=== PATIENT | male | born 1955 | race Caucasian/White ===

== ENCOUNTER 2017-08-08 07:17 | Emergency (ER) | payer SELFPAY ==
[~2017-08-08] VITALS: Ht 177.8 cm; Wt 80.0 kg
[~2017-08-08 07:17] MED LIST: OTC COLD MEDS
[2017-08-08 07:20] VITALS: TEMP 36.7; Ht 177.8 cm; Wt 80.0 kg
[2017-08-08 07:33] VITALS: O2SAT 92
[2017-08-08] MEDS ORDERED: ALBUT/IPRATROP 3MG/0.5MG NEB 3 ML VIAL INH STA (07:44)
[2017-08-08] MEDS ORDERED: DEXT30TA7 PO (07:58)
[2017-08-08 08:09] LABS: BASO % 0.3 %; BASO ABS # 0.02 K/uL (0-0.2); HEMATOCRIT 39.2 % (42-52); HEMOGLOBIN 14.3 g/dL (14.0-18.0); IG# 0.02 K/uL (0.00-0.02); LYMPH % 13.8 %; LYMPH ABS # 0.95 K/uL (1.2-3.4); MEAN CELL VOLUME 85.2 fL (80-100); MEAN CORPUSCULAR HEMOGLOBIN 31.1 pg (25-34); MEAN CORPUSCULAR HGB CONC 36.5 g/dl (32-36); MEAN PLATELET VOLUME 9.3 fL (7.4-10.4); MONO % 16.2 %; MONO ABS # 1.11 K/uL (0.11-0.59); NEUT % 69.4 %; NEUT ABS # 4.77 K/uL (1.4-6.5); PLATELET COUNT 198 K/uL (130-400); RED CELL DISTRIBUTION WIDTH CV 12.7 % (11.5-14.5); RED CELL DISTRIBUTION WIDTH SD 39.4 fL (36.4-46.3); WHITE BLOOD COUNT 6.87 K/uL (4.8-10.8)
[2017-08-08 08:26] LABS: BLOOD UREA NITROGEN 8 mg/dl (7-18); CALCIUM 8.9 mg/dl (8.5-10.1); CARBON DIOXIDE 22 mmol/L (21-32); CREATININE 0.88 mg/dl (0.60-1.40); GLUCOSE 108 mg/dl (70-99); POTASSIUM 3.7 mmol/L (3.5-5.1); SODIUM 123 mmol/L (136-145)
[2017-08-08 08:31] LABS: CKMB 1.7 ng/ml (0.5-3.6)
--- NOTE | 2017-08-08 08:34 | DIAGNOSTIC IMAGING REPORT ---
TWO VIEW CHEST CLINICAL HISTORY: Dyspnea. FINDINGS: PA and lateral chest radiographs are compared to study dated 10/05/2016. The cardiomediastinal silhouette is unremarkable. There is mild atherosclerotic calcification of the thoracic aorta. The lungs and pleural spaces are clear. There is no pneumothorax. The bony thorax appears intact. Degenerative change is noted in the thoracic spine. IMPRESSION: No active disease in the chest. Electronically signed by: Bhavin Magana M.D. 08/08/2017 8:33 AM Dictated Date/Time: 08/08/2017 8:29 AM
[2017-08-08 08:35] LABS: INFLUENZA B ANTIGEN Neg for Influ B (NEG)
--- NOTE | 2017-08-08 09:12 | EMERGENCY ROOM VISIT NOTE ---
History First contact with patient: 07:32 Chief Complaint: FLU LIKE SX Stated Complaint: SICK History of Present Illness Patient is a 62-year-old white male with past medical history significant for COPD, who presents emergency department for evaluation of flulike symptoms 2 weeks. He states he got sick with "a cold" about a week and a half ago, reported some minor upper respiratory symptoms including cough and congestion. His symptoms got better for the beginning part of last week, then worsened again , 4 days ago. He reports subjective fever and chills, generalized body and muscle aches, cough, congestion and progressively worsening shortness of breath. He did not check his temperature with a thermometer. He reports a cough that is productive of clear sputum. He notes some bilateral lower rib pain with coughing and deep breathing. He states that he is short of breath with minimal activity like going up stairs or trying to shower this morning. He has been using Mucinex and Tylenol for his symptoms. He also has been taking 1 puff of his Ventolin inhaler every 4-5 hours. He denies any nausea or vomiting, and reports that he was eating well until just yesterday when he began to note some anorexia. He has not been able to smoke since becoming ill. His is here being evaluated for similar symptoms. He reports that he has been around his grandchildren who have also sick with influenza and strep. The patient did not get an influenza vaccine this year. Review of Systems Review of systems as per HPI. All other systems reviewed were negative. 10 systems reviewed. Past Medical/Surgical History Medical Problems: (1) COPD (chronic obstructive pulmonary disease) (2) Tobacco Use Disorder Surgical Problems: (1) History of hernia repair Electronic medical records are reviewed and summarized as above/below. See Problem List. Social History Smoking Status: Current Every Day Smoker Marital Status: Housing Status: lives with family Occupation Status: employed Current/Historical Medications Scheduled Dextromethorphan-Guaifenesin (Mucinex Dm), 1 TAB PO Q12 Physical Exam Vital Signs Date Time Temp Pulse Resp B/P (MAP) Pulse Ox O2 Delivery O2 Flow Rate FiO2 08/08/17 09:26 95 20 148/88 91 08/08/17 07:34 100 08/08/17 07:33 92 Room Air 08/08/17 07:20 36.7 102 20 138/82 93 Room Air Physical Exam MENTAL STATUS: Patient is an ill although nontoxic-appearing 62-year-old white male who is awake and alert and in no acute distress. He is afebrile, oxygen saturation 93% on room air. HEAD: Atraumatic, without temporal or scalp tenderness. EYES: PERRL, EOMI, no discharge or injection. EARS: Tympanic membranes intact, not inflamed, have normal contour. External canals clear. NOSE: Nares patent, turbinates edematous and boggy with clear rhinorrhea. MOUTH: Mucous membranes moist, no lesions, tongue and gums appear normal. THROAT: No pharyngeal injection, exudates, or tonsillar hypertrophy. Airway is patent. NECK: Supple, nontender, no lymphadenopathy. HEART: Regular rate and rhythm without murmurs, ectopy, gallops, or rubs. LUNGS: Breath sounds are diminished, with expiratory wheezes noted throughout, right worse than left. No accessory muscle use or retractions. SKIN: Normal. NEUROLOGICAL: Sensory and motor functions grossly intact. Normal gait. Medical Decision & Procedures ER Provider Diagnostic Interpretation: TWO VIEW CHEST CLINICAL HISTORY: Dyspnea. FINDINGS: PA and lateral chest radiographs are compared to study dated 10/05/2016. The cardiomediastinal silhouette is unremarkable. There is mild atherosclerotic calcification of the thoracic aorta. The lungs and pleural spaces are clear. There is no pneumothorax. The bony thorax appears intact. Degenerative change is noted in the thoracic spine. IMPRESSION: No active disease in the chest. Laboratory Results 08/08/17 07:50 Red Blood Count 4.60, Mean Corpuscular Volume 85.2, Mean Corpuscular Hemoglobin 31.1, Mean Corpuscular Hemoglobin Concent 36.5, Mean Platelet Volume 9.3, Neutrophils (%) (Auto) 69.4, Lymphocytes (%) (Auto) 13.8, Monocytes (%) (Auto) 16.2, Eosinophils (%) (Auto) 0.0, Basophils (%) (Auto) 0.3, Neutrophils # (Auto ) 4.77, Lymphocytes # (Auto) 0.95, Monocytes # (Auto) 1.11, Eosinophils # (Auto ) 0.00, Basophils # (Auto) 0.02 08/08/17 07:50 Test 08/08/17 07:32 08/08/17 07:50 Influenza Type A Antigen POS for Influ A (NEG) Influenza Type B Antigen Neg for Influ B (NEG) White Blood Count 6.87 K/uL (4.8-10.8) Red Blood Count 4.60 M/uL (4.7-6.1) Hemoglobin 14.3 g/dL (14.0-18.0) Hematocrit 39.2 % (42-52) Mean Corpuscular Volume 85.2 fL (80-100) Mean Corpuscular Hemoglobin 31.1 pg (25-34) Mean Corpuscular Hemoglobin Concent 36.5 g/dl (32-36) Platelet Count 198 K/uL (130-400) Mean Platelet Volume 9.3 fL (7.4-10.4) Neutrophils (%) (Auto) 69.4 % Lymphocytes (%) (Auto) 13.8 % Monocytes (%) (Auto) 16.2 % Eosinophils (%) (Auto) 0.0 % Basophils (%) (Auto) 0.3 % Neutrophils # (Auto) 4.77 K/uL (1.4-6.5) Lymphocytes # (Auto) 0.95 K/uL (1.2-3.4) Monocytes # (Auto) 1.11 K/uL (0.11-0.59) Eosinophils # (Auto) 0.00 K/uL (0-0.5) Basophils # (Auto) 0.02 K/uL (0-0.2) RDW Standard Deviation 39.4 fL (36.4-46.3) RDW Coefficient of Variation 12.7 % (11.5-14.5) Immature Granulocyte % (Auto) 0.3 % Immature Granulocyte # (Auto) 0.02 K/uL (0.00-0.02) Anion Gap 12.0 mmol/L (3-11) Est Creatinine Clear Calc Drug Dose 91.0 ml/min Estimated GFR () 107.5 Estimated GFR (Non- 92.7 BUN/Creatinine Ratio 8.9 (10-20) Calcium Level 8.9 mg/dl (8.5-10.1) Total Creatine Kinase 120 U/L (39-308) Creatine Kinase MB 1.7 ng/ml (0.5-3.6) Creatine Kinase MB Ratio 1.4 (0-3.0) Troponin I < 0.015 ng/ml (0-0.045) Medications Administered Medications (Trade) Dose Ordered Sig/Fred Route Start Time Stop Time Status Last Admin Dose Admin Albuterol/ Ipratropium (Duoneb) 3 ml NOW STAT INH 08/08/17 07:44 08/08/17 07:47 DC 08/08/17 07:56 3 ML ED Course The patient was seen and examined as above. Old records were reviewed. IV lock was initiated and laboratory studies were collected. EKG was performed and was as noted above. Patient was given a DuoNeb treatment. CBC, BMP, cardiac enzymes and influenza swab were collected. Chest x-ray was performed. EKG noted a normal sinus rhythm without ectopy or acute ischemic changes. Laboratory studies did not reveal a leukocytosis, no anemia. The patient does have a history of hyponatremia, his sodium was noted to be 123 today. Renal function is normal. Cardiac enzymes are negative 1, with symptoms greater than 24 hours. Influenza swab was positive for influenza A. Chest x-ray was clear. The patient was reassessed. On re-auscultation, his wheezing had completely cleared. Conservative care measures were discussed regarding the positive influenza swab. Patient reports that he has an albuterol inhaler at home and was advised to continue the inhaler for cough. He is outside of the window for which Tamiflu is appropriate. He was encouraged to follow-up with his primary care provider if his symptoms are not improving. Differential diagnoses also entertained included otitis media, sinusitis, bronchitis, pneumonia, COPD exacerbation, among others. Medical Decision See ED Course. Medication Reconcilliation Current Medication List: was personally reviewed by nd Blood Pressure Screening Patient's blood pressure: Normal blood pressure Blood pressure disposition: Did not require urgent referral Impression Primary Impression: Influenza A Departure Information Referrals Armando Mccloud M.D. (PCP) Patient Instructions My [facility] Additional Instructions Acetaminophen(Tylenol) may be used for fever or pain. Use 1000mg every six hours as needed. Avoid using more than 3000mg in a 24 hour period. (AND/OR) Ibuprofen(Motrin, Advil) may be used for fever or pain. Use 600mg every six hours as needed. Take with food. Avoid using more than 2400mg in a 24 hour period. Do not use 2400mg per day for more than three consecutive days without physician direction. Prolonged inappropriate use can lead to stomach upset or ulcers. Pseudoephedrine(Sudaphed): 30-60mg every 6 hours as needed for nasal congestion. Do not take this with other stimulant products or supplements. Guaifenesin (Mucinex) : Take 1200 mg every 12 hours as needed for nasal/chest congestion, to help thin secretions. Albuterol Inhaler: Take 2-4 puffs every 4 hours for the next 5-7 days, then as needed. Rest and drink plenty of fluids. Controlling your fever with Tylenol and Ibuprofen as above will make you feel better. Wash your hands after nose blowing, sneezing, or coughing. Most germs are spread through contact, therefore improper hygiene may result in your close contacts and loved ones becoming ill just like you. Continue current medications. Return to the ER for severe headache, neck stiffness, chest pain, difficulty breathing, fevers, vomiting, worsening of your condition, or as needed. Follow up with your primary physician this week for a recheck of your current condition.
[2017-08-08 09:26] VITALS: BP 148/88; PULSE 95; O2SAT 91
== END 2017-08-08 09:27 | disposition home or self-care (01) ==
LOC: C.EDB 07:17
DX: J10.1 Influenza due to other identified influenza virus with other respiratory manifestations (principal); J44.9 Chronic obstructive pulmonary disease, unspecified; F17.200 Nicotine dependence, unspecified, uncomplicated; Z98.890 Other specified postprocedural states

== ENCOUNTER 2022-04-19 12:42 | Observation (INO) ==
--- NOTE | 2022-04-19 13:02 | Emergency Department Note ---
Impression & Plan TIA (transient ischemic attack), Carotid stenosis, symptomatic w/o infarct, Cerebral aneurysm without rupture ED Provider Note Name: ADALBERTO GRAJEDA Age: 66 Sex: M Arrives Via: Walk-In Informant: Patient ED Provider: Warren Meadows MD Chief Complaint: Visual disturbance Impression: As per impressions above Medical Decision Making: Pleasant 66-year-old gentleman with a history of hyperlipidemia. He also has a history of smoking. Arrives with several hours now resolved left visual field deficits. He had already been seen by ophthalmology this morning and sent him to the ER for evaluation of possible stroke. Work-up including a CTA of the head and neck reveal no intracranial hemorrhage though there is evidence of significant left carotid stenosis. Neuro intact throughout with NIH 0. A bit HTN but not requiring IV meds. Given ASA 324mg PO. Hospitalist consulted for further management givenly likely TIA as cause of symptoms. Triage/Nursing Notes reviewed by Me Differentials:Stroke, ICH, TIA, Optho emergency, electrolyte imbalance, seizure, brain tumor, amongst others. Vital Signs: reviewed and remarkable for HTN Interventions: asa 324mg po Labs:Reviewed and remarkable for no significant abnormalities Imaging:ct angio head/neck w/wo contrast. Left carotid stenosis and aneurysm noted per hospitalist EKG:Per My Interpretation: Indication stroke like symptoms: NSR 83 bpm, qtc 430. No Ectopy. No Ischemia. Compared to EKG 08/08/17, no significant changes. Consults:Dr Andres BENITEZ Hospitalist Plan: Disposition:Hospitalization. Condition: Good History of Present Illness:66-year-old male arrives for evaluation of visual disturbance. Patient notes he woke this morning feeling fine. Around 8 PM he started having some visual loss in his left eye/left lateral field. Says he just could not seem to make things out properly and they were hazy. He called his ophthalmology technician and was immediately seen. He notes the symptoms come and go lasting 10 to 15 minutes at a time. They have now resolved. He was seen by ophthalmology and they dilated his eye. They noted no concerning findings though are concerned that he had had a stroke based on his symptoms. He denies any headache, neck pain, palpitations, nausea, vomiting, arm or leg weakness, paresthesias, urinary or bowel control issues, abdominal pain, chest pain or any other signs or symptoms. He is been feeling fine the last few days. No med ications prior to arrival. Patient has a history of hyperlipidemia takes no medicines. He does smoke daily. Father of a heart attack mother of old age. ROS: See above HPI for pertinent positives & negatives. A total of 10 systems reviewed and were otherwise negative. Past Medical History:Hyperlipidemia Past Surgical History:Hernia repair Family History:Mother of ND, mother of old age Social History:, long-term tobacco use cigarettes, no drug or alcohol use. Home Medications:None periodic vitamins Allergies:KNDA Vitals:Blood Pressure: 174/100, Pulse 86, RR 18, T 37.1C, O2 96% on RA Physical Exam: GENERAL: Patient is mildly anxious appearing and in minimal distress. EYES: No scleral icterus, unremarkable pupils. ENT: Mucous membranes moist, no nasal congestion. NECK: No masses appreciated, nomeningismus, trachea is midline. RESPIRATORY: No dyspnea. Clear to auscultation and equal bilaterally. No wheeze, no rhonchi. CARDIOVASCULAR: Regular rate and rhythm.No murmurs, rubs, gallops appreciated. GASTROINTESTINAL: Abdomen soft, non-tender, no peritonitis.Bowel sounds positive.No masses appreciated. BACK: No midline tenderness, no CVA tenderness EXTREMITIES: Normal motion all extremities, no cyanosis, no edema. NEUROLOGIC: Alert and oriented, no acute motor or sensory deficits, no focal weakness, cranial nerves grossly intact. Dilated left eye. SKIN: No rash, no jaundice, no diaphoresis. PSYCH: Appropriate GCS: 15 ED Course: Times/Reassessments: Stable throughout. Agreeable to hospitalization Warren Meadows MD Past Med/Surg History Medical History H/O blood clots H/O myocardial infarction, greater than 8 weeks Surgical History H/O hernia repair S/P tonsillectomy Family History Mother Ovarian cancer Denies family history of Colon cancer Prostate cancer Myocardial infarction Breast cancer Social History Smoking Status: Unknown if ever smoked Tobacco Type: Cigarettes Age Started Using Tobacco: 17; Cigarettes Per Day: Less then a pack; Second Hand Exposure: No; Hx Alcohol Use: No Hx Substance Use: No Preferred Language: Latvian Communication Ability: Effective Visual Impairment: No Limitations Hearing Ability: Normal Regional Administrative Assistant Required: No Beliefs That Will Affect Care: None marital status: Current Living Situation: Spouse current occupational status: employed 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 How many Children do You have: 4 Feels Safe at Home: Yes Childhood Exposure to Second-Hand Smoke: Yes caffeine: Yes Dental Care, Regularly: No Physical Activity Frequency: 3-4 Times per Week Seatbelt Use: always Sunscreen Use: No Allergies Allergies Allergy/AdvReac Type Severity Reaction Status Date / Time No Known Allergies Allergy Verified 04/19/22 13:27 Home Meds Home Medications Medication Instructions Recorded Confirmed albuterol sulfate 90 mcg/actuation 2 puffs inhalation Q6H PRN 03/31/19 04/19/22 aerosol inhaler (Ventolin HFA) Shortness Of Breath ascorbic acid (vitamin C) 250 mg 250 mg PO DAILY 01/20/22 04/19/22 tablet aspirin 81 mg tablet,delayed 81 mg PO DAILY 01/20/22 04/19/22 release cholecalciferol (vitamin D3) 25 25 mcg PO DAILY 01/20/22 04/19/22 mcg (1,000 unit) capsule coenzyme Q10 60 mg tablet 60 mg PO DAILY 01/20/22 04/19/22 fexofenadine 180 mg tablet 180 mg PO DAILY 01/20/22 04/19/22 (Jillian Allergy) lansoprazole 15 mg capsule,delayed 15 mg PO DAILY PRN GERD 01/20/22 04/19/22 release Previous Rx's Medication Instructions Recorded sildenafil 25 mg tablet 25 mg PO DAILY PRN sexual activity 01/20/22 #20 tabs simvastatin 10 mg tablet 10 mg PO DAILY #90 tabs 01/20/22 fluticasone furoate 100 1 inh inhalation DAILY #60 ea 04/05/22 mcg-vilanterol 25 mcg/dose inhalation powder (Breo Ellipta) atorvastatin 40 mg tablet 40 mg PO DAILY 30 days #30 tabs 04/20/22 clopidogrel 75 mg tablet (Plavix) 75 mg PO DAILY #30 tabs 04/20/22 Results & Data (ED) Vital Signs Vital Signs - 24 hr 04/19/22 12:46 Temperature 37.1 C Temperature Source Oral Pulse Rate 86 Respiratory Rate 18 Blood Pressure 174/100 H Blood Pressure Mean 124 Pulse Oximetry 96 Oxygen Delivery Method Room Air Sepsis Recent Fever Within 48 Hours No Sepsis New/Unexplained Change in Mental Status No Sepsis Action Taken by Nursing No Action Required Laboratory Data Result diagrams: 04/20/22 09:36 04/20/22 09:36 Lab Results 04/19/22 04/19/22 04/19/22 Range/Units 12:57 12:57 12:57 WBC 9.55 (4.8-10.8) K/ul RBC 5.21 (4.63-6.08) M/uL Hgb 15.5 (14.0-18.0) g/dl POC Hgb (14.0-18.0) g/dl Hct 45.4 (40.1-51.0) % POC Hct (42-52) % MCV 87.1 (80.0-100.0) fL MCH 29.8 (25.0-34.0) pg MCHC 34.1 (32.0-36.0) g/dL RDW Std Deviation 42.2 (36.4-46.3) fL RDW Coeff of Beverly 13.2 (11.5-14.5) % Plt Count 255 (130-400) K/uL MPV 10.3 (9.4-12.4) fL Immature Gran % (Auto) 0.4 % Neut % (Auto) 59.8 % Lymph % (Auto) 29.8 % Dale % (Auto) 7.4 % Eos % (Auto) 1.9 % Baso % (Auto) 0.7 % Neut # (Auto) 5.70 (1.4-6.5) K/uL Lymph # (Auto) 2.85 (1.2-3.4) K/uL Dale # (Auto) 0.71 (0.24-0.82) K/uL Eos # (Auto) 0.18 (0-0.50) K/uL Baso # (Auto) 0.07 (0-0.2) K/uL Immature Gran # (Auto) 0.04 H (0.00-0.02) K/uL PT 10.6 (9.0-12.0) Seconds INR 1.0 (0.9-1.1) APTT 34.3 H (21.0-31.0) Seconds PTT Ratio 1.2 POC Sodium (135-144) mmol/L Sodium 132 L (136-145) mmol/L POC Potassium (3.3-5.0) mmol/L Potassium 4.1 (3.5-5.1) mmol/L POC Chloride (101-112) mmol/L Chloride 97 L (98-107) mmol/L Carbon Dioxide 27 (21-32) mmol/L POC Total CO2 (24-31) mmol/L Anion Gap 8 (3-11) POC Anion Gap (16-25) mmol/L POC BUN (7-18) mg/dl BUN 12 (6-23) mg/dl Creatinine 0.87 (0.6-1.4) mg/dl POC Creatinine (0.6-1.3) mg/dl Est Cr Clr Drug Dosing 84.7 ml/min Est GFR ( Amer) 105.0 ml/min Est GFR (Non-Af Amer) 90.6 ml/min BUN/Creatinine Ratio 13.8 (10-20) Glucose 91 (70-99(Fasting)) mg/dl POC Glucose (other) (70-99) mg/dl Calcium 10.5 H (8.5-10.1) mg/dl POC Ioniz Calcium Claudette (1.12-1.32) mmol/l Magnesium 2.0 (1.7-2.4) mg/dl Total Bilirubin 0.4 (0.2-1.0) mg/dl AST 17 (13-39) U/L ALT 15 (7-52) U/L Alkaline Phosphatase 78 (34-104) U/L Troponin I High Sens 6.8 (0-20) pg/ml Total Protein 8.6 H (6.0-8.3) gm/dl Albumin 5.1 H (3.4-5.0) gm/dl Globulin 3.5 (2.5-4.0) gm/dl Albumin/Globulin Ratio 1.5 (0.9-2) SARS-CoV-2, RNA, NAAT (NEGATIVE) Blood Type Antibody Screen 04/19/22 04/19/22 04/19/22 Range/Units 12:59 13:04 13:05 WBC (4.8-10.8) K/ul RBC (4.63-6.08) M/uL Hgb (14.0-18.0) g/dl POC Hgb 16.3 (14.0-18.0) g/dl Hct (40.1-51.0) % POC Hct 48 (42-52) % MCV (80.0-100.0) fL MCH (25.0-34.0) pg MCHC (32.0-36.0) g/dL RDW Std Deviation (36.4-46.3) fL RDW Coeff of Beverly (11.5-14.5) % Plt Count (130-400) K/uL MPV (9.4-12.4) fL Immature Gran % (Auto) % Neut % (Auto) % Lymph % (Auto) % Dale % (Auto) % Eos % (Auto) % Baso % (Auto) % Neut # (Auto) (1.4-6.5) K/uL Lymph # (Auto) (1.2-3.4) K/uL Dale # (Auto) (0.24-0.82) K/uL Eos # (Auto) (0-0.50) K/uL Baso # (Auto) (0-0.2) K/uL Immature Gran # (Auto) (0.00-0.02) K/uL PT (9.0-12.0) Seconds INR (0.9-1.1) APTT (21.0-31.0) Seconds PTT Ratio POC Sodium 132 L (135-144) mmol/L Sodium (136-145) mmol/L POC Potassium 4.1 (3.3-5.0) mmol/L Potassium (3.5-5.1) mmol/L POC Chloride 97 L (101-112) mmol/L Chloride (98-107) mmol/L Carbon Dioxide (21-32) mmol/L POC Total CO2 25 (24-31) mmol/L Anion Gap (3-11) POC Anion Gap 16.0 (16-25) mmol/L POC BUN 12 (7-18) mg/dl BUN (6-23) mg/dl Creatinine (0.6-1.4) mg/dl POC Creatinine 0.8 (0.6-1.3) mg/dl Est Cr Clr Drug Dosing ml/min Est GFR ( Amer) ml/min Est GFR (Non-Af Amer) ml/min BUN/Creatinine Ratio (10-20) Glucose (70-99(Fasting)) mg/dl POC Glucose (other) 96 (70-99) mg/dl Calcium (8.5-10.1) mg/dl POC Ioniz Calcium Claudette 1.24 (1.12-1.32) mmol/l Magnesium (1.7-2.4) mg/dl Total Bilirubin (0.2-1.0) mg/dl AST (13-39) U/L ALT (7-52) U/L Alkaline Phosphatase (34-104) U/L Troponin I High Sens (0-20) pg/ml Total Protein (6.0-8.3) gm/dl Albumin (3.4-5.0) gm/dl Globulin (2.5-4.0) gm/dl Albumin/Globulin Ratio (0.9-2) SARS-CoV-2, RNA, NAAT NEGATIVE (NEGATIVE) Blood Type O Positive Antibody Screen NEGATIVE Administered Medications Discontinued Medications Ascorbic Acid (Ascorbic Acid 500 Mg Tab) 250 mg PO DAILY [facility] Stop: 05/20/22 08:59 Last Admin: 04/20/22 07:58 Dose: 250 mg Documented By: MALACHI Aspirin (Aspirin 81 Mg Chew) 324 mg PO NOW [facility] Stop: 04/19/22 14:00 Last Admin: 04/19/22 14:24 Dose: 324 mg Documented By: RUI Aspirin (Aspirin 81 Mg Ectab) 81 mg PO DAILY [facility] Stop: 05/20/22 08:59 Last Admin: 04/20/22 08:02 Dose: 81 mg Documented By: MALACHI Atorvastatin Calcium (Atorvastatin 20 Mg Tab) 20 mg PO [facility] Stop: 05/20/22 08:59 Last Admin: 04/20/22 08:03 Dose: 20 mg Documented By: MALACHI Clopidogrel Bisulfate (Clopidogrel Bisulfate 75 Mg Tab) 75 mg PO [facility] Stop: 05/20/22 09:29 Last Admin: 04/20/22 10:30 Dose: 75 mg Documented By: MALACHI Enoxaparin Sodium (Enoxaparin Inj 40 Mg/0.4 Ml Syr) 40 mg SQ Q24H [facility] Stop: 05/19/22 20:59 Last Admin: 04/19/22 21:40 Dose: 40 mg Documented By: JUDY Fexofenadine HCl (Fexofenadine Hcl 180 Mg Tab) 180 mg PO DAILY [facility] Stop: 05/20/22 08:59 Last Admin: 04/20/22 07:58 Dose: 180 mg Documented By: MALACHI Fluticasone/Vilanterol (Fluticasone/Vilanterol 100/25mcg 14 Puffs/Inhaler) 1 puffs INH DAILY [facility] Stop: 05/20/22 08:59 Last Admin: 04/20/22 08:12 Dose: Not Given Documented By: MALACHI Sodium Chloride (Nss 1000ml) 1,000 mls @ 125 mls/hr IV .Q8H [facility] Stop: 05/19/22 12:59 Last Admin: 04/20/22 09:53 Dose: 125 mls/hr Documented By: Infusion: 04/20/22 09:53 Dose: 125 mls/hr Documented By: Admin: 04/20/22 02:28 Dose: 125 mls/hr Documented By: Infusion: 04/19/22 21:29 Dose: 125 mls/hr Documented By: Admin: 04/19/22 13:29 Dose: 125 mls/hr Documented By: ROBIN Ioversol (Optiray 320 500ml) 101 ml IV ONCE ONE Stop: 04/19/22 13:26 Last Admin: 04/19/22 13:26 Dose: 101 ml Documented By: EMELIA Miscellaneous (Remove Nicoderm Patch) 1 each N/A DAILY@0859 [facility] Stop: 05/20/22 08:58 Last Admin: 04/20/22 08:10 Dose: 1 each Documented By: MALACHI Nicotine (Nicotine 14 Mg/24 Hr Patch) 14 mg TD QAM [facility] Stop: 05/19/22 22:04 Last Admin: 04/20/22 08:11 Dose: 14 mg Documented By: Admin: 04/19/22 23:38 Dose: 14 mg Documented By: JUDY Vitamin D (Cholecalciferol 1,000 Units 25 Mcg Tab) 1,000 units PO DAILY [facility] Stop: 05/20/22 08:59 Last Admin: 04/20/22 08:03 Dose: 1,000 units Documented By: MALACHI Discharge Plan Visit Data Chief Complaint: TIA Symptoms Stated Complaint: lost sight in L eye, Dr ref for stroke test ED Provider: Warren Meadows Discharge Problem: TIA (transient ischemic attack), Carotid stenosis, symptomatic w/o infarct, Cerebral aneurysm without rupture Patient Disposition: Admitted As Inpatient Discharge Instructions Interventions: ED Discharge Assessment Last Done: 04/19/22 15:50
[2022-04-19 13:17] LABS: iSTAT Creatinine 0.8 mg/dl (0.6-1.3); iSTAT Hemoglobin 16.3 g/dl (14.0-18.0); iSTAT Ionized Calcium 1.24 mmol/l (1.12-1.32); iSTAT Potassium 4.1 mmol/L (3.3-5.0)
[2022-04-19] MEDS ORDERED: OPTIRAY 320 500ml IV ONE (13:25)
[2022-04-19] MEDS: SODIUM CHLORIDE 0.9% 1000ML 1,000 ML IV SCH (13:29)
[2022-04-19 13:35] LABS: Basophils # (auto) 0.07 K/uL (0-0.2); Basophils % (auto) 0.7 %; Eosinophils # (auto) 0.18 K/uL (0-0.50); Eosinophils % (auto) 1.9 %; Hematocrit (blood only) 45.4 % (40.1-51.0); Hemoglobin 15.5 g/dl (14.0-18.0); Immature Granulocytes # (auto) 0.04 K/uL (0.00-0.02); Immature Granulocytes % (auto) 0.4 %; Lymphocytes # (auto) 2.85 K/uL (1.2-3.4); Lymphocytes % (auto) 29.8 %; Mean Corpuscular Hemoglobin 29.8 pg (25.0-34.0); Mean Corpuscular Hgb Conc 34.1 g/dL (32.0-36.0); Mean Corpuscular Volume 87.1 fL (80.0-100.0); Mean Platelet Volume 10.3 fL (9.4-12.4); Monocytes # (auto) 0.71 K/uL (0.24-0.82); Monocytes % (auto) 7.4 %; Neutrophils % (auto) 59.8 %; Platelet Count 255 K/uL (130-400); RDW Coefficient of Variation 13.2 % (11.5-14.5); RDW Standard Deviation 42.2 fL (36.4-46.3); Red Blood Count 5.21 M/uL (4.63-6.08); White Blood Count 9.55 K/ul (4.8-10.8)
[2022-04-19 13:52] LABS: Partial Thromboplastin Ratio 1.2; Partial Thromboplastin Time 34.3 Seconds (21.0-31.0); Prothrombin Time 10.6 Seconds (9.0-12.0)
--- NOTE | 2022-04-19 13:54 | CT Scan Report ---
CT angio neck with con, CT angio head w con, CT head/brain wo con CLINICAL HISTORY: Stroke Like Symptoms TECHNIQUE: Contiguous axial CT images of the head were acquired from the base of the skull to the yamile johnie without intravenous contrast administration. CT angiography of the head and neck was performed f ollowing intravenous administration of iodinated contrast. Coronal and sagittal MIPS were obtained fr om the axial data set and were submitted for review. Automated dose lowering techniques and/or adjus tment according to patient size were utilized for this examination. All measurements were calculated based on NASCET criteria. CT DOSE: 1247.04 mGy.cm Comparison: None available at the time of this dictation. FINDINGS: CT head: There is no acute intracranial hemorrhage or evidence of acute territorial infarction. No sh ift of the midline structures, mass effect, or extra-axial abnormalities are shown. Emphysematous changes are seen in the lungs. There is a 12 mm subclavian lymph node. CTA Neck: The left common carotid artery shares common origin with the innominate artery. There is h emodynamically significant stenosis of the left internal carotid artery distal to the bifurcation. Th ere is atherosclerosis in the right internal carotid artery without hemodynamically significant steno sis. There is no significant atherosclerotic plaque in the aortic arch or the origins of the innomina te, left common carotid, and left subclavian arteries. The common carotid, external carotid, cervic al segments of the internal carotid arteries, and the cervical segments of the vertebral arteries are patent without hemodynamically significant stenosis. The left vertebral artery is dominant. CTA Head: The anterior and posterior cerebral circulations are patent. There is a 6 x 8 mm anterosup eriorly oriented aneurysm at the junction of the right anterior cerebral artery and the anterior comm unicating artery. Great vessels are patent. There is likely severe stenosis of the right vertebral ar [place] V4 segment, although the distal vertebral artery is reconstituted. IMPRESSION: 1. No acute intracranial hemorrhage, evidence of acute territorial infarction, or other acute intrac ranial disease process. 2. There is hemodynamically significant stenosis of the left internal carotid artery. Prominent athe rosclerosis in the right internal carotid artery without hemodynamically significant stenosis. These are likely chronic. 3. There is hemodynamically significant stenosis in the right vertebral artery V4 segment. This is f avored to be chronic. 4. 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 Assessment of stenosis of the internal carotid arteries is based on NASCET criteria. ACT 112: Positive. There are findings on this exam that require communication between the performing entity and the patient following Patient Test Result Information Act ([place] Act 112) guidelines. Electronically signed by: Anand Trevizo M.D. 04/19/2022 1:53 PM
[2022-04-19] MEDS ORDERED: ASPIRIN 81 MG CHEW PO STA (13:59)
[2022-04-19 14:01] LABS: Albumin Globulin Ratio 1.5 (0.9-2); Albumin Level 5.1 gm/dl (3.4-5.0); BUN Creatinine Ratio 13.8 (10-20); Bilirubin,Total 0.4 mg/dl (0.2-1.0); Calcium 10.5 mg/dl (8.5-10.1); Creatinine Clr Calc Pharmacy 84.7 ml/min; Est GFR (Non-African American) 90.6 ml/min; Globulin 3.5 gm/dl (2.5-4.0); Potassium 4.1 mmol/L (3.5-5.1); Total Protein 8.6 gm/dl (6.0-8.3)
[2022-04-19 14:02] LABS: Troponin I High Sensitivity 6.8 pg/ml (0-20)
--- NOTE | 2022-04-19 14:22 | History & Physical Report ---
Date of Service April 19, 2022 Assessment & Plan (1) TIA (transient ischemic attack): Plan: -Admit to med/tele -Patient is currently afebrile, hemodynamically stable, and stable on RA -Patient's symptoms are likely associated with his left ICA stenosis but cannot rule out other vascular causes at this time. 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 artery -Patient's vision nearly back to baseline, will need to continue to monitor after his left eye is no longer dilated -Was given 324 mg of aspirin in the ED, will continue his daily aspirin and will start 20 mg PO Lipitor to see if he can tolerate a different statin -Placed Vascular surgery consult for multiple findings on the CTA of the head/neck -Will obtain MRI of the brain and TTE for further assessment, ECG showing NSR and was noted to be NSR on exam -Encourage smoking cessation as it increases his risk of stroke -q4h neuro checks -AM CBC and BMP (2) GERD (gastroesophageal reflux disease): Plan: -Continue lansoprazole (3) Smoker: Plan: -Continue to stress smoking cessation -He declined nictoine patch/gum at this time (4) COPD (chronic obstructive pulmonary disease): Plan: -Continue breathing treatments (5) Dyslipidemia: Plan: -Starting Lipitor Plan The patient was discussed with Dr. Campos at the time of the admission History of Present Illness Chief Complaint: Loss of vision Primary Care Provider: Pawel Greene DO Darrion is a 66 year old male with a PMH significant for COPD, GERD, tobacco abuse, hypertriglyceridemia, who presented to the [facility] ED on 04/19/22 with a chief complaint of loss of vision in the left eye. In the ED the patient was found to be afebrile, hemodynamically stable, and stable on RA. Labs were remarkable for CBC WNL, sodium of 132, stable renal function, and covid negative. CT of the Head and CT of the Head/Neck showed "No acute intracranial hemorrhage, evidence of acute territorial infarction, or other acute intracranial disease process. There is hemodynamically significant stenosis of the left internal carotid artery. Prominent atherosclerosis in the right internal carotid artery without hemodynamically significant stenosis. These are likely chronic.There is hemodynamically significant stenosis in the right vertebral artery V4 segment. This is favored to be chronic.There is a 6 x 8 mm aneurysm in the junction of the right anterior cerebral artery and anterior communicating artery. Prior to admission the patient was given 324 mg of aspirin. At the time of the exam the patient was sitting up in bed, resting comfortably, with his sitting bedside. He states that he was in his normal state of health this morning when he woke up around 0600. He went through his normal morning routine until approximately 0800 when he noticed blurry vision in his left eye. The loss of vision was gradual and he denies complete loss of vision or experiencing a curtain come down. He states that this lasted for approximately 20 minutes then his vision improved. However, the blurry vision returned shortly after. He was seen in the ophthalmology office around 1100 this morning, they dilated his left pupil and said his eye exam was normal, they recommended coming to the ED for stroke evaluation. He states that at the time of my exam his vision is virtually back to normal in his left eye but is slightly blurry; his left pupil is still dilated at the time of my exam. He denies headaches, changes in hearing, taste, and smell. He has no other neurologic symptoms at the time of my exam. When asked, he states that this happened one other time, approximately 1 year ago but lasted a short period of time and them resolved, he never went to be evaluated at that time. He is on daily aspirin and still smokes.He states that his PCP recently started him on simvastatin for elevated LDL, he was unable to tolerate it because he states it made him constipated. He has a follow-up appointment with them within the next 2 weeks. He denies a history of afib or feeling as though his heart is fluttering. I spoke to him regarding code status, he is a Full Code, his would make decisions for him if he could not make decisions himself. Allergies Allergy/AdvReac Type Severity Reaction Status Date / Time No Known Allergies Allergy Verified 04/19/22 13:27 Home Medications Medication Instructions Recorded Confirmed Type albuterol sulfate 90 mcg/actuation 2 puffs inhalation Q6H PRN 03/31/19 04/19/22 History aerosol inhaler (Ventolin HFA) Shortness Of Breath ascorbic acid (vitamin C) 250 mg 250 mg PO DAILY 01/20/22 04/19/22 History tablet aspirin 81 mg tablet,delayed 81 mg PO DAILY 01/20/22 04/19/22 History release cholecalciferol (vitamin D3) 25 25 mcg PO DAILY 01/20/22 04/19/22 History mcg (1,000 unit) capsule coenzyme Q10 60 mg tablet 60 mg PO DAILY 01/20/22 04/19/22 History fexofenadine 180 mg tablet 180 mg PO DAILY 01/20/22 04/19/22 History (Jillian Allergy) lansoprazole 15 mg capsule,delayed 15 mg PO DAILY PRN GERD 01/20/22 04/19/22 History release sildenafil 25 mg tablet 25 mg PO DAILY PRN sexual activity 01/20/22 04/19/22 Rx #20 tabs simvastatin 10 mg tablet 10 mg PO DAILY #90 tabs 01/20/22 04/19/22 Rx fluticasone furoate 100 1 inh inhalation DAILY #60 ea 04/05/22 04/19/22 Rx mcg-vilanterol 25 mcg/dose inhalation powder (Breo Ellipta) Past Med/Surg History Medical History (Updated 04/19/22 @ 15:06 by Kurt Walter PA-C) H/O blood clots H/O myocardial infarction, greater than 8 weeks Surgical History H/O hernia repair S/P tonsillectomy Family History Mother Ovarian cancer Denies family history of Colon cancer Prostate cancer Myocardial infarction Breast cancer Social History (Updated 01/20/22 @ 13:32 by Kellee Valerio LPN) Smoking Status: Current every day smoker Tobacco Type: Cigarettes Age Started Using Tobacco: 17; Cigarettes Per Day: Less then a pack; Second Hand Exposure: No; Hx Alcohol Use: Yes Hx Substance Use: No Preferred Language: Micronesian Communication Ability: Effective Visual Impairment: No Limitations Hearing Ability: Normal Heat Plant Specialist Required: No marital status: Current Living Situation: Spouse current occupational status: employed 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 All systems have been reviewed and are otherwise negative. Physical Exam Physical Exam: Physical Exam: General: In no acute distress, stated age, well-nourished, good hygiene HEENT: Normocephalic, atraumatic, no scleral icterus, pupils around round, left pupil currently dilated from eye exam prior to arrival to the ED, both pupils are reactive to light, moist mucus membranes, trachea midline, no thyromegaly Chest/Pulm: No respiratory distress, symmetrical chest expansion, expiratory wheezing noted throughout Cardiac: RRR, no murmurs noted Abdomen: Negative for ascites and bruising, normoactive bowel sounds, soft, non-tender to palpation throughout Musculoskeletal: Symmetrical and without signs of acute trauma, upper and lower extremities with full ROM, no atrophy, spasticity, or flaccidity Extremities: Radial, dorsalis pedis, and posterior tibial pulses are intact and symmetrical, no edema noted in the BL LE's Skin: Warm, dry, no rashes , lesions, or scars noted Neuro: Alert and oriented to person, place, month, year, and president, no focal defects, CN II-XII tested and intact, finger to nose test negative, no tremors noted Psych: No acute distress, calm and cooperative during the exam Results & Data Results & Data ([facility]) Vital Signs (Past 12 Hours) Vital Signs Temp Pulse Resp BP Pulse Ox O2 Del Method 04/19/22 12:46 37.1 C 86 18 174/100 H 96 Room Air Laboratory Results Abnormal lab results 04/19/22 04/19/22 04/19/22 Range/Units 12:57 12:57 12:57 Immature Gran # (Auto) 0.04 H (0.00-0.02) K/uL APTT 34.3 H (21.0-31.0) Seconds POC Sodium (135-144) mmol/L Sodium 132 L (136-145) mmol/L POC Chloride (101-112) mmol/L Chloride 97 L (98-107) mmol/L Calcium 10.5 H (8.5-10.1) mg/dl Total Protein 8.6 H (6.0-8.3) gm/dl Albumin 5.1 H (3.4-5.0) gm/dl 04/19/22 Range/Units 13:04 Immature Gran # (Auto) (0.00-0.02) K/uL APTT (21.0-31.0) Seconds POC Sodium 132 L (135-144) mmol/L Sodium (136-145) mmol/L POC Chloride 97 L (101-112) mmol/L Chloride (98-107) mmol/L Calcium (8.5-10.1) mg/dl Total Protein (6.0-8.3) gm/dl Albumin (3.4-5.0) gm/dl Diagnostic Findings Head CT 04/19/22 12:58 CT angio neck with con, CT angio head w con, CT head/brain wo con CLINICAL HISTORY: Stroke Like Symptoms TECHNIQUE: Contiguous axial CT images of the head were acquired from the base of the skull to the vertex without intravenous contrast administration. CT angiography of the head and neck was performed following intravenous administration of iodinated contrast. Coronal and sagittal MIPS were obtained from the axial data set and were submitted for review. Automated dose lowering techniques and/or adjustment according to patient size were utilized for this examination. All measurements were calculated based on NASCET criteria. CT DOSE: 1247.04 mGy.cm Comparison: None available at the time of this dictation. FINDINGS: CT head: There is no acute intracranial hemorrhage or evidence of acute territorial infarction. No shift of the midline structures, mass effect, or extra-axial abnormalities are shown. Emphysematous changes are seen in the lungs. There is a 12 mm subclavian lymph node. CTA Neck: The left common carotid artery shares common origin with the innominate artery. There is hemodynamically significant stenosis of the left internal carotid artery distal to the bifurcation. There is atherosclerosis in the right internal carotid artery without hemodynamically significant stenosis. There is no significant atherosclerotic plaque in the aortic arch or the origins of the innominate, left common carotid, and left subclavian arteries. The common carotid, external carotid, cervical segments of the internal carotid arteries, and the cervical segments of the vertebral arteries are patent without hemodynamically significant stenosis. The left vertebral artery is dominant. CTA Head: The anterior and posterior cerebral circulations are patent. There is a 6 x 8 mm anterosuperiorly oriented aneurysm at the junction of the right anterior cerebral artery and the anterior communicating artery. Great vessels are patent. There is likely severe stenosis of the right vertebral artery V4 segment, although the distal vertebral artery is reconstituted. IMPRESSION: 1. No acute intracranial hemorrhage, evidence of acute territorial infarction, or other acute intracranial disease process. 2. There is hemodynamically significant stenosis of the left internal carotid artery. Prominent atherosclerosis in the right internal carotid artery without hemodynamically significant stenosis. These are likely chronic. 3. There is hemodynamically significant stenosis in the right vertebral artery V4 segment. This is favored to be chronic. 4. 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 Assessment of stenosis of the internal carotid arteries is based on NASCET criteria. ACT 112: Positive. There are findings on this exam that require communication between the performing entity and the patient following Patient Test Result Information Act ([place] Act 112) guidelines. Electronically signed by: Anand Trevizo M.D. 04/19/2022 1:53 PM Head CTA 04/19/22 12:58 CT angio neck with con, CT angio head w con, CT head/brain wo con CLINICAL HISTORY: Stroke Like Symptoms TECHNIQUE: Contiguous axial CT images of the head were acquired from the base of the skull to the vertex without intravenous contrast administration. CT angiography of the head and neck was performed following intravenous administration of iodinated contrast. Coronal and sagittal MIPS were obtained from the axial data set and were submitted for review. Automated dose lowering techniques and/or adjustment according to patient size were utilized for this examination. All measurements were calculated based on NASCET criteria. CT DOSE: 1247.04 mGy.cm Comparison: None available at the time of this dictation. FINDINGS: CT head: There is no acute intracranial hemorrhage or evidence of acute territorial infarction. No shift of the midline structures, mass effect, or extra-axial abnormalities are shown. Emphysematous changes are seen in the lungs. There is a 12 mm subclavian lymph node. CTA Neck: The left common carotid artery shares common origin with the innominate artery. There is hemodynamically significant stenosis of the left internal carotid artery distal to the bifurcation. There is atherosclerosis in the right internal carotid artery without hemodynamically significant stenosis. There is no significant atherosclerotic plaque in the aortic arch or the origins of the innominate, left common carotid, and left subclavian arteries. The common carotid, external carotid, cervical segments of the internal carotid arteries, and the cervical segments of the vertebral arteries are patent without hemodynamically significant stenosis. The left vertebral artery is dominant. CTA Head: The anterior and posterior cerebral circulations are patent. There is a 6 x 8 mm anterosuperiorly oriented aneurysm at the junction of the right anterior cerebral artery and the anterior communicating artery. Great vessels are patent. There is likely severe stenosis of the right vertebral artery V4 segment, although the distal vertebral artery is reconstituted. IMPRESSION: 1. No acute intracranial hemorrhage, evidence of acute territorial infarction, or other acute intracranial disease process. 2. There is hemodynamically significant stenosis of the left internal carotid artery. Prominent atherosclerosis in the right internal carotid artery without hemodynamically significant stenosis. These are likely chronic. 3. There is hemodynamically significant stenosis in the right vertebral artery V4 segment. This is favored to be chronic. 4. 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 Assessment of stenosis of the internal carotid arteries is based on NASCET criteria. ACT 112: Positive. There are findings on this exam that require communication between the performing entity and the patient following Patient Test Result Information Act ([place] Act 112) guidelines. Electronically signed by: Anand Trevizo M.D. 04/19/2022 1:53 PM Neck CTA 04/19/22 12:58 CT angio neck with con, CT angio head w con, CT head/brain wo con CLINICAL HISTORY: Stroke Like Symptoms TECHNIQUE: Contiguous axial CT images of the head were acquired from the base of the skull to the vertex without intravenous contrast administration. CT angiography of the head and neck was performed following intravenous administration of iodinated contrast. Coronal and sagittal MIPS were obtained from the axial data set and were submitted for review. Automated dose lowering techniques and/or adjustment according to patient size were utilized for this examination. All measurements were calculated based on NASCET criteria. CT DOSE: 1247.04 mGy.cm Comparison: None available at the time of this dictation. FINDINGS: CT head: There is no acute intracranial hemorrhage or evidence of acute territorial infarction. No shift of the midline structures, mass effect, or extra-axial abnormalities are shown. Emphysematous changes are seen in the lungs. There is a 12 mm subclavian lymph node. CTA Neck: The left common carotid artery shares common origin with the innominate artery. There is hemodynamically significant stenosis of the left internal carotid artery distal to the bifurcation. There is atherosclerosis in the right internal carotid artery without hemodynamically significant stenosis. There is no significant atherosclerotic plaque in the aortic arch or the origins of the innominate, left common carotid, and left subclavian arteries. The common carotid, external carotid, cervical segments of the internal carotid arteries, and the cervical segments of the vertebral arteries are patent without hemodynamically significant stenosis. The left vertebral artery is dominant. CTA Head: The anterior and posterior cerebral circulations are patent. There is a 6 x 8 mm anterosuperiorly oriented aneurysm at the junction of the right anterior cerebral artery and the anterior communicating artery. Great vessels are patent. There is likely severe stenosis of the right vertebral artery V4 segment, although the distal vertebral artery is reconstituted. IMPRESSION: 1. No acute intracranial hemorrhage, evidence of acute territorial infarction, or other acute intracranial disease process. 2. There is hemodynamically significant stenosis of the left internal carotid artery. Prominent atherosclerosis in the right internal carotid artery without hemodynamically significant stenosis. These are likely chronic. 3. There is hemodynamically significant stenosis in the right vertebral artery V4 segment. This is favored to be chronic. 4. 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 Assessment of stenosis of the internal carotid arteries is based on NASCET criteria. ACT 112: Positive. There are findings on this exam that require communication between the performing entity and the patient following Patient Test Result Information Act ([place] Act 112) guidelines. Electronically signed by: Anand Trevizo M.D. 04/19/2022 1:53 PM ECG Additional Comments: Normal sinus rhythm Normal ECG When compared with ECG of 08-AUG-2017 07:51, No significant change was found Code Status & VTE Plan Code Status Full Code VTE Prophylaxis Plan VTE Prophylaxis will be ordered: Yes Supervising Physician Co-Signing Physician Notes Patient seen and examined, chart reviewed, case discussed with Kurt Walter PA-C and I agree with the assessment and plan as above except as otherwise noted Labs and images reviewed C6-year-old male with COPD, GERD, tobacco use, hyperlipidemia who presents with left vision loss. Because of dilated pupil 2/2 dilation at ophthalmology office. Imaging with carotid disease as noted. CT with no acute findings, CTA shows significant stenosis of the left ICA, right vertebral V4 chronic, and a 6 x 8 mm aneurysm at right YONIS. Patient seen the bedside. Continues to have left pupil dilation compared to the right after having drops placed in the ophthalmology office. He reports that today he had a draining over and blurriness of the vision across the whole field in his left eye which included the peripherals and central vision which gradually resolved by time of presentation to the ER. He did see the regulatory submissions specialist and had a dilated eye exam and did not have any retinal detachment. Had some small streaks of bright colors early on, vision is back to normal at time of bedside assessment. No similar symptoms. No arm or leg weakness. No chest pain/shortness of breath. Heart rate is regular, lungs are clear on assessment. YONIS aneurysm: Age greater than 50, maximal size is greater than 7 mm. Given size greater than 7 mm vascular consulted for recommendations. Vision loss, CVA eval: Encompassing entire visual field without preference to partial versus focal. Resolved at time of assessment. MRI pending. Agree with recommendation/management above. Patient is on simvastatin, lipid panel pending and to be upgraded to moderatehigh potency statin, patient continued on aspirin 81 mg daily based on above eval? Switch to Plavix. PG Care Time/CCT Total # of Minutes Spent Total Time Spent with Patient: Total time spent is greater than 50% in coordination of care (as documented) at patient's floor/unit and/or counseling patient: Coding Level of Care Code Established Pt INT OBSERVATION CARE 50M LVL 2 Patient Type Established History Comprehensive Exam Comprehensive Medical Decision Making Moderate Complexity Diagnoses TIA (transient ischemic attack) G45.9 GERD (gastroesophageal reflux disease) K21.9 Smoker F17.200 COPD (chronic obstructive pulmonary disease) J44.9 Dyslipidemia E78.5
[2022-04-19] MEDS ORDERED: PHARMACIST DISCHARGE MED REC CONSULT PRN (15:58)
[2022-04-19] MEDS ORDERED: ALBUTEROL HFA 8 GM INHALER INH PRN (15:58)
[2022-04-19] MEDS ORDERED: ACETAMINOPHEN 325 MG TAB PO PRN (15:58)
[2022-04-19] MEDS ORDERED: PANTOprazole 40 MG TAB PO PRN (16:15)
--- NOTE | 2022-04-19 17:49 | Electrocardiogram Report ---
Test Reason : Blood Pressure : / mmHG Vent. Rate : 083 BPM Atrial Rate : 083 BPM P-R Int : 180 ms QRS Dur : 082 ms QT Int : 366 ms P-R-T Axes : 084 002 073 degrees QTc Int : 430 ms Normal sinus rhythm Normal ECG When compared with ECG of 08-AUG-2017 07:51, No significant change was found Confirmed by Orestes Angeles ([id number]) on 04/19/2022 5:48:36 PM Referred By: Pawel Greene Confirmed By:Shane Angeles
[2022-04-19] MEDS ORDERED: ENOXAPARIN INJ 40 MG/0.4 ML SYR SQ SCH (21:00)
--- NOTE | 2022-04-19 21:32 | Magnetic Resonance Report ---
MR brain wo con CLINICAL HISTORY: stroke workup TECHNIQUE: Multiplanar and multisequence MR images of the brain were obtained without intravenous con trast. Comparison: None available at the time of this dictation. FINDINGS: No abnormal restricted diffusion is identified. The white matter is unremarkable. The ventricular sys tem is normal in appearance. No mass is seen. There is no mass effect or midline shift. There is no e vidence of acute intraparenchymal hemorrhage. No extra axial fluid collections are seen. The corpus c allosum, pituitary gland, and cerebellar tonsils appear grossly unremarkable. Flow voids of the major intracranial arterial vessels are identified. The imaged portions of the para nasal sinuses, mastoid air cells, and orbits are unremarkable. IMPRESSION: No acute abnormality and in particular no evidence of acute infarct. ACT 112: Negative or not required by law. Electronically signed by: Anand Trevizo M.D. 04/19/2022 9:30 PM
[2022-04-19] MEDS: NICOTINE 14 MG/24 HR PATCH TD SCH (23:38)
[2022-04-20] MEDS: SODIUM CHLORIDE 0.9% 1000ML 1,000 ML IV SCH ×2 (02:28→09:53)
[2022-04-20] MEDS: NICOTINE 14 MG/24 HR PATCH TD SCH (08:11)
[2022-04-20] MEDS ORDERED: ASPIRIN 81 MG ECTAB PO SCH (09:00)
[2022-04-20] MEDS ORDERED: ATORVASTATIN 20 MG TAB PO SCH (09:00)
[2022-04-20] MEDS ORDERED: FEXOFENADINE HCL 180 MG TAB PO SCH (09:00)
[2022-04-20] MEDS ORDERED: CHOLECALCIFEROL 1,000 UNITS 25 MCG TAB PO SCH (09:00)
[2022-04-20] MEDS ORDERED: ASCORBIC ACID 500 MG TAB PO SCH (09:00)
[2022-04-20] MEDS ORDERED: FLUTICASONE/VILANTEROL 100/25MCG 14 PUFFS/INHALER INH SCH (09:00)
[2022-04-20] MEDS ORDERED: COENZYME Q10 60 MG PO SCH (09:00)
[2022-04-20] MEDS ORDERED: CLOPIDOGREL BISULFATE 75 MG TAB PO SCH (09:30)
--- NOTE | 2022-04-20 09:49 | Consultation ---
Date of Consultation April 20, 2022 Assessment & Plan (1) Carotid stenosis, symptomatic w/o infarct: Pt with signfiicant L ICA stenosis and possible L eye amaurosis which has resolved. Pt also seen by Dr English. Recommends pt undergo L sided TCAR procedure in the next 2 weeks. Procedure discussed with pt, he is in agreement. Pt will require 81 mg ASA, statin medication, and plavix prior to his procedure. Plavix started today. Atorvastatin and plavix sent to pharmacy for pt to continue at d/c; pt already on ASA. Cerebral artery aneurysm will need addressed by neurology/neurosurgery. Consult placed for neurology. Please call if needed. History of Present Illness Reason for Consultation: TIA, L ICA stenosis Attending Physician: Danial Barksdale MD History of Present Illness 66 yo m with hx of HTN, GERD, hyperlipidemia, COPD, admitted with L eye amaurosis sx and found to have L ICA stenosis, seen in consultation today for carotid stenosis. Pt states he developed L eye sanchez vision and had trouble focusing yesterday, which lasted at least 20 minutes or so. Called his supervisor money room for an eval and she noted no abnormalities and sent him to ED. Pt states sx have resolved. Had similar sx about 1 yr ago which lasted about 1 minute. No other concerning sx. Denies facial droop, unilateral weakness num bness or tingling, difficulty speaking or swallowing. Denies JOHNSON, fever, chest pain, SOB, abd pain, N/V, rest pain, claudication, other complaints. CTA neck/head demonstrates L ICA stenosis of 80% as well as mild stenosis of R ICA, vertebral artery disease, and cerebral artery aneurysm. Allergies Allergy/AdvReac Type Severity Reaction Status Date / Time No Known Allergies Allergy Verified 04/19/22 13:27 Home Medications Medication Instructions Recorded Confirmed Type albuterol sulfate 90 mcg/actuation 2 puffs inhalation Q6H PRN 03/31/19 04/19/22 History aerosol inhaler (Ventolin HFA) Shortness Of Breath ascorbic acid (vitamin C) 250 mg 250 mg PO DAILY 01/20/22 04/19/22 History tablet aspirin 81 mg tablet,delayed 81 mg PO DAILY 01/20/22 04/19/22 History release cholecalciferol (vitamin D3) 25 25 mcg PO DAILY 01/20/22 04/19/22 History mcg (1,000 unit) capsule coenzyme Q10 60 mg tablet 60 mg PO DAILY 01/20/22 04/19/22 History fexofenadine 180 mg tablet 180 mg PO DAILY 01/20/22 04/19/22 History (Jillian Allergy) lansoprazole 15 mg capsule,delayed 15 mg PO DAILY PRN GERD 01/20/22 04/19/22 History release sildenafil 25 mg tablet 25 mg PO DAILY PRN sexual activity 01/20/22 04/19/22 Rx #20 tabs simvastatin 10 mg tablet 10 mg PO DAILY #90 tabs 01/20/22 04/19/22 Rx fluticasone furoate 100 1 inh inhalation DAILY #60 ea 04/05/22 04/19/22 Rx mcg-vilanterol 25 mcg/dose inhalation powder (Breo Ellipta) atorvastatin 20 mg tablet (Lipitor) 20 mg PO DAILY #30 tabs 04/20/22 Rx clopidogrel 75 mg tablet (Plavix) 75 mg PO DAILY #30 tabs 04/20/22 Rx Patient History Medical History H/O blood clots H/O myocardial infarction, greater than 8 weeks Surgical History H/O hernia repair S/P tonsillectomy Family History Mother Ovarian cancer Denies family history of Colon cancer Prostate cancer Myocardial infarction Breast cancer Social History Smoking Status: Unknown if ever smoked Tobacco Type: Cigarettes Age Started Using Tobacco: 17; Cigarettes Per Day: Less then a pack; Second Hand Exposure: No; Do You Dip or Chew Tobacco: No; Tobacco Cessation Education Requested by Patient: No Hx Alcohol Use: No Hx Substance Use: No Preferred Language: Divehi Communication Ability: Effective Visual Impairment: No Limitations Hearing Ability: Normal Senior Java Software Developer Required: No Beliefs That Will Affect Care: None marital status: Current Living Situation: Spouse current occupational status: employed 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 How many Children do You have: 4 Feels Safe at Home: Yes Safety Concerns: Feels Safe At This Time Childhood Exposure to Second-Hand Smoke: Yes caffeine: Yes Dental Care, Regularly: No Physical Activity Frequency: 3-4 Times per Week Seatbelt Use: always Sunscreen Use: No Review of Systems Review of Systems: All systems reviewed & are unremarkable except as noted in HPI & below Physical Exam Constitutional: WD/WN, vitals as above healthy appearing, cooperative and comfortable; not in distress ENMT: Ears: no hearing impairment Neck: trachea midline Respiratory: normal respiratory effort; no respiratory distress Auscultation: lungs clear to auscultation bilaterally and + diminished lung sounds Cardiovascular: Rate/Rhythm: regular rate and regular rhythm Vessels: + carotid bruit, femoral pulses present, posterior tibial pulses present, dorsalis pedis pulses present and radial pulses present; + abnormal peripheral pulses Extremities: normal capillary refill; no edema Gastrointestinal (Abdomen): Inspection/Auscultation: abdomen normal to inspection and normal bowel sounds Percussion/Palpation: abdomen soft; abdomen nontender Musculoskeletal: no cyanosis or clubbing, extremities motor strength 5/5 Skin: no rashes, warm and dry Neurologic: moves all extremities and awake; no focal motor deficits and not confused Psychiatric: A+Ox3, euthymic affect Results & Data ([facility]) Vital Signs (Past 12 Hours) Vital Signs Temp Pulse Pulse Resp BP Pulse Ox O2 Del Method 04/20/22 07:50 36.5 C 67 18 143/79 H 95 Room Air 04/19/22 22:05 92 H 04/19/22 22:57 94 H 04/20/22 02:50 36.4 C L 72 18 148/82 H 97 Room Air 04/19/22 23:07 36.9 C 76 18 136/75 96 Room Air
[2022-04-20 09:53] LABS: Hematocrit (blood only) 39.5 % (40.1-51.0); Hemoglobin 13.7 g/dl (14.0-18.0); Mean Corpuscular Hemoglobin 29.8 pg (25.0-34.0); Mean Corpuscular Hgb Conc 34.7 g/dL (32.0-36.0); Mean Corpuscular Volume 85.9 fL (80.0-100.0); Platelet Count 224 K/uL (130-400); RDW Coefficient of Variation 13.3 % (11.5-14.5); RDW Standard Deviation 41.9 fL (36.4-46.3); White Blood Count 5.87 K/ul (4.8-10.8)
[2022-04-20 10:20] LABS: BUN Creatinine Ratio 12.7 (10-20); Calcium 9.6 mg/dl (8.5-10.1); Creatinine Clr Calc Pharmacy 93.2 ml/min; Est GFR (African American) 109.2 ml/min; Est GFR (Non-African American) 94.2 ml/min; Potassium 4.1 mmol/L (3.5-5.1)
[2022-04-20] MEDS ORDERED: STROKE PATIENT DISCHARGE STA (10:36)
--- NOTE | 2022-04-20 11:12 | Neurology Consultation ---
Date of Consultation April 20, 2022 Assessment & Plan (1) Carotid stenosis, symptomatic w/o infarct: (2) Cerebral aneurysm without rupture: Plan 66-year-old male with a symptomatic significant stenosis of the left internal carotid artery, presenting with amaurosis fugax to the left eye. Patient also has a moderate stenosis of the right internal carotid artery that is not symptomatic, but will need to monitor going forward. CT angiography also revealed a 6 x 8 mm aneurysm at the junction of the right anterior cerebral artery and anterior communicating artery. He will need additional neurosurgical evaluation for this aneurysm to discuss potential treatment options, intrav ascular coiling versus surgical clipping. His aneurysm is approaching a significant enough size that nonurgent intervention may be warranted at this time. He should have a consultation with a neurosurgeon at [facility] for further assessment of this issue. He should continue to follow with his PCP for monitoring of blood pressure. His blood pressure has been only modestly elevated at times during this recent hospitalization. He does not appear to require an antihypertensive acutely. However, if his BP remains elevated as an outpatient, may need to start treatment. I agree with dual antiplatelet therapy for the time being, as recommended by vascular surgery, on daily low-dose aspirin and clopidogrel 75 mg/day. May use dual antiplatelet therapy temporarily, while awaiting TCAR procedure in the next 2 weeks. I agree with starting atorvastatin as well. Please arrange for an outpatient neurosurgical evaluation at [facility] to address patient's 6 x 8 mm ACOM aneurysm. No further immediate recommendations. History of Present Illness Reason for Consultation: TIA Requesting Physician: Rosalinda Escobedo PA-C Attending Physician: Danial Barksdale MD History of Present Illness The patient is a 66-year-old male with a chief complaint of painless vision loss to the left eye that occurred suddenly yesterday morning at around 8 AM. He perceived a curtain coming down over his visual field, lasting for about 20 minutes, followed by resolution. Again, no associated headache. He denied experiencing other associated symptoms such as change in speech, diplopia, vertigo, focal weakness, or difficulty with standing or walking. He recalls having episodes of perception of flashing light to the left eye a few times over the past few weeks. He also recalls having an episode of painless vision loss to the left eye last year although did not have a medical evaluation at that time. He currently feels well and is without specific neurologic symptoms. He has already been seen by vascular surgery. He is a smoker. He takes daily low- dose aspirin and a statin as an outpatient. A CTA of the head and neck was negative for hemorrhage or acute process. There was a hemodynamically significant stenosis of the left internal carotid artery as well as atherosclerotic plaque, without hemodynamically significant stenosis for the ri t internal carotid artery. There was a right vertebral stenosis. There was a 6 x 8 mm aneurysm at the junction of the right anterior cerebral artery and anterior communicating artery. No known family history of cerebral aneurysm. A brain MRI was negative for acute abnormality, no evidence of acute stroke. I did independently review these images and was able to identify the above findings as described by the interpreting radiologist. Allergies Allergy/AdvReac Type Severity Reaction Status Date / Time No Known Allergies Allergy Verified 04/19/22 13:27 Home Medications Medication Instructions Recorded Confirmed Type albuterol sulfate 90 mcg/actuation 2 puffs inhalation Q6H PRN 03/31/19 04/19/22 History aerosol inhaler (Ventolin HFA) Shortness Of Breath ascorbic acid (vitamin C) 250 mg 250 mg PO DAILY 01/20/22 04/19/22 History tablet aspirin 81 mg tablet,delayed 81 mg PO DAILY 01/20/22 04/19/22 History release cholecalciferol (vitamin D3) 25 25 mcg PO DAILY 01/20/22 04/19/22 History mcg (1,000 unit) capsule coenzyme Q10 60 mg tablet 60 mg PO DAILY 01/20/22 04/19/22 History fexofenadine 180 mg tablet 180 mg PO DAILY 01/20/22 04/19/22 History (Jillian Allergy) lansoprazole 15 mg capsule,delayed 15 mg PO DAILY PRN GERD 01/20/22 04/19/22 History release sildenafil 25 mg tablet 25 mg PO DAILY PRN sexual activity 01/20/22 04/19/22 Rx #20 tabs simvastatin 10 mg tablet 10 mg PO DAILY #90 tabs 01/20/22 04/19/22 Rx fluticasone furoate 100 1 inh inhalation DAILY #60 ea 04/05/22 04/19/22 Rx mcg-vilanterol 25 mcg/dose inhalation powder (Breo Ellipta) atorvastatin 40 mg tablet 40 mg PO DAILY 30 days #30 tabs 04/20/22 Rx clopidogrel 75 mg tablet (Plavix) 75 mg PO DAILY #30 tabs 04/20/22 Rx Patient History Medical History H/O blood clots H/O myocardial infarction, greater than 8 weeks Surgical History H/O hernia repair S/P tonsillectomy Family History Mother Ovarian cancer Denies family history of Colon cancer Prostate cancer Myocardial infarction Breast cancer Social History Smoking Status: Unknown if ever smoked Tobacco Type: Cigarettes Age Started Using Tobacco: 17; Cigarettes Per Day: Less then a pack; Second Hand Exposure: No; Hx Alcohol Use: No Hx Substance Use: No Preferred Language: Cymraes Communication Ability: Effective Visual Impairment: No Limitations Hearing Ability: Normal Industrial Engineering Technologist Required: No Beliefs That Will Affect Care: None marital status: Current Living Situation: Spouse current occupational status: employed 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 How many Children do You have: 4 Feels Safe at Home: Yes Childhood Exposure to Second-Hand Smoke: Yes caffeine: Yes Dental Care, Regularly: No Physical Activity Frequency: 3-4 Times per Week Seatbelt Use: always Sunscreen Use: No Review of Systems Constitutional: no fever and no chills Eyes: as per Subjective / HPI Ear, Nose, Mouth, Throat: no hearing loss Respiratory: no cough and no dyspnea Cardiovascular: no chest pain and no palpitations Gastrointestinal: no nausea and no vomiting Genitourinary: no urinary incontinence Musculoskeletal: no myalgia Integumentary: no rash and no lesions Neurologic: as per Subjective / HPI Psychiatric: no depression and no anxiety Hematologic / Lymphatic: no easy bleeding and no easy bruising Exam (Neuro) Constitutional: well developed and well nourished; no acute distress Eyes: normal visual walker by confrontation, PERRL, normal accommodation and EOM intact bilaterally; no fundoscopic abnormality, no nystagmus and no papilledema Cardiovascular: Vessels: normal carotid upstroke; no carotid bruit Neurologic: Oriented to:: Person, Place and Time Memory: Short Term Intact and Remote Intact Attention: Span Intact and Concentration Intact Language: Naming Objects and Repeating Phrases Speech Fluency: negative Dysarthria Speech Aphasia: negative Aphasia Fund of Knowledge: Current Events, Past History and Vocabulary Cranial Nerves: Normal II (Visual walker full to confrontation, visual acuity normal), III, IV, (Pupils equal round reactive to light and accommodation, eye movements normal), V (Facial sensation intact), VII (There is no facial droop or weakness), VIII (Hearing intact), IX, X (Palate elevates to midline), XI (Shoulder shrug intact) and XII (Tongue protrudes to midline) Motor Strength: Normal Lower Extremities and Normal Upper Extremities; negative Pronator Drift Motor Tone: Normal Lower Extremities and Normal Upper Extremities Muscle Bulk/Involuntary Movements: No Involuntary Movements; negative Muscle Atrophy Sensation: Light Touch Intact, Pain/Temperature Intact, Vibration Intact and Proprioception Intact Coordination: Normal; negative Limited Balance, Dysdiadochokinesia, Finger-Nose Abnormal or Heel-Morales Abnormal Deep Tendon Reflexes: Rt Triceps: 2+, Lt Triceps: 2+, Rt Biceps: 2+, Lt Biceps: 2+, Rt Brachioradialis: 2+, Lt Brachioradialis: 2+, Rt Patellar: 2+, Lt Patellar: 2+, Rt Ankle: 2+ and Lt Ankle: 2+ Special Tests: negative Babinski Present Gait: Normal Station and Gait Results & Data ([facility]) Vital Signs (Past 12 Hours) Vital Signs Temp Pulse Pulse Resp BP Pulse Ox O2 Del Method 04/20/22 06:10 75 04/20/22 07:50 36.5 C 67 18 143/79 H 95 Room Air 04/20/22 02:50 36.4 C L 72 18 148/82 H 97 Room Air 04/19/22 23:07 36.9 C 76 18 136/75 96 Room Air Laboratory Results WBC 5.87, hemoglobin 13.7, hematocrit 39.5, platelet count 224, sodium 133, potassium 4.1, BUN 10, creatinine 0.79, glucose 136, calcium 9.6, AST 17, ALT 15, triglycerides 230, cholesterol 247, LDL 162, VLDL 46, HDL 39, SARS-CoV-[address] angiography of the head and neck including CT of the head and brain MRI are as described in the HPI. An electrocardiogram revealed a normal sinus rhythm, 83 bpm. Coding Level of Care Code 94528 Initial Inpt Care Lvl 3 Diagnoses Carotid stenosis, symptomatic w/o infarct I65.29 Cerebral aneurysm without rupture I67.1
--- NOTE | 2022-04-20 11:13 | Pharmacy Report ---
Pharmacist Stroke Counseling - Date of Service April 20, 2022 - Scope: Pharmacy has been consulted to provide medication discharge counseling for this patient admitted with transient ischemic attack as per the Pharmacist Discharge Counseling for Stroke Patients Protocol. - Medications on Discharge: Home Medications Medication Instructions Recorded Confirmed albuterol sulfate 90 mcg/actuation 2 puffs inhalation Q6H PRN 03/31/19 04/19/22 aerosol inhaler (Ventolin HFA) Shortness Of Breath ascorbic acid (vitamin C) 250 mg 250 mg PO DAILY 01/20/22 04/19/22 tablet aspirin 81 mg tablet,delayed 81 mg PO DAILY 01/20/22 04/19/22 release cholecalciferol (vitamin D3) 25 25 mcg PO DAILY 01/20/22 04/19/22 mcg (1,000 unit) capsule coenzyme Q10 60 mg tablet 60 mg PO DAILY 01/20/22 04/19/22 fexofenadine 180 mg tablet 180 mg PO DAILY 01/20/22 04/19/22 (Jillian Allergy) lansoprazole 15 mg capsule,delayed 15 mg PO DAILY PRN GERD 01/20/22 04/19/22 release New Rx's Medication Instructions Recorded sildenafil 25 mg tablet 25 mg PO DAILY PRN sexual activity 01/20/22 #20 tabs simvastatin 10 mg tablet 10 mg PO DAILY #90 tabs 01/20/22 fluticasone furoate 100 1 inh inhalation DAILY #60 ea 04/05/22 mcg-vilanterol 25 mcg/dose inhalation powder (Breo Ellipta) atorvastatin 40 mg tablet 40 mg PO DAILY 30 days #30 tabs 04/20/22 clopidogrel 75 mg tablet (Plavix) 75 mg PO DAILY #30 tabs 04/20/22 - Action: The above medications, specifically ones for stroke treatment/prophylaxis, have been reviewed in detail with the patient and/or patient union contract representative(s) prior to discharge. This includes indication, common adverse reactions, drug interactions, and medication administration. Medication counseling has been employed using the teach-back method to ensure understanding. - Outcome: The patient and/or patient union contract representative(s) have demonstrated understanding of the medications. Additional comments: - Patient educated on new medications, including clopidogrel and atorvastatin. Educated on increased bleeding risk with aspirin/Plavix. - Patient reports using lansoprazole sparingly as needed for acid reflux/indigestion - he also uses Tums and will trial that instead while on clopidogrel - Pill box provided Thank you for allowing pharmacy to be involved in the care of this patient. Please call [phone] with any additional questions
--- NOTE | 2022-04-20 12:41 | Discharge Summary ---
Date of Service April 20, 2022 Admission HPI Per Admitting Provider Darrion is a 66 year old male with a PMH significant for COPD, GERD, tobacco abuse, hypertriglyceridemia, who presented to the [facility] ED on 04/19/22 with a chief complaint of loss of vision in the left eye. In the ED the patient was found to be afebrile, hemodynamically stable, and stable on RA. Labs were remarkable for CBC WNL, sodium of 132, stable renal function, and covid negative. CT of the Head and CT of the Head/Neck showed "No acute intracranial hemorrhage, evidence of acute territorial infarction, or other acute intracranial disease process. There is hemodynamically significant stenosis of the left internal carotid artery. Prominent atherosclerosis in the right internal carotid artery without hemodynamically significant stenosis. These are likely chronic.There is hemodynamically significant stenosis in the right vertebral artery V4 segment. This is favored to be chronic.There is a 6 x 8 mm aneurysm in the junction of the right anterior cerebral artery and anterior communicating artery. Prior to admission the patient was given 324 mg of aspirin. At the time of the exam the patient was sitting up in bed, resting comfortably, with his sitting bedside. He states that he was in his normal state of health this morning when he woke up around 0600. He went through his normal morning routine until approximately 0800 when he noticed blurry vision in his left eye. The loss of vision was gradual and he denies complete loss of vision or experiencing a curtain come down. He states that this lasted for approximately 20 minutes then his vision improved. However, the blurry vision returned shortly after. He was seen in the ophthalmology office around 1100 this morning, they dilated his left pupil and said his eye exam was normal, they recommended coming to the ED for stroke evaluation. He states that at the time of my exam his vision is virtually back to normal in his left eye but is slightly blurry; his left pupil is still dilated at the time of my exam. He denies headaches, changes in hearing, taste, and smell. He has no other neurologic symptoms at the time of my exam. When asked, he states that this happened one other time, approximately 1 year ago but lasted a short period of time and them resolved, he never went to be evaluated at that time. He is on daily aspirin and still smokes.He states that his PCP recently started him on simvastatin for elevated LDL, he was unable to tolerate it because he states it made him constipated. He has a follow-up appointment with them within the next 2 weeks. He denies a history of afib or feeling as though his heart is fluttering. I spoke to him regarding code status, he is a Full Code, his would make decisions for him if he could not make decisions himself. Principal Diagnosis aneurysm, carotid stenosis Discharge Exam The patient is awake, alert and oriented 3, well developed and well nourished, normocephalic and atraumatic, lying in bed and in no acute distress. HEENT--PERRL, EOMI, mucous membranes and oropharynx mildly dry Neck--supple. No JVD. No bruits. Thyroid normal, trachea midline, no adenopat hy. Heart--normal S1 and S2. No murmurs, rubs or gallops. Lungs--clear bilaterally, no respiratory distress, no accessory muscle use. Abdomen--normal bowel sounds and soft. Mild epigastric and left sided abdominal pain Extremities--no cyanosis or clubbing. No edema. Dermatologic--normal skin turgor, normal color, no abnormal lymph nodes, no rash. Neurologic--cranial nerves II through XII grossly intact. Rheumatologic--normal range of motion. Psychiatric--normal affect. Discharge Data Allergies Allergy/AdvReac Type Severity Reaction Status Date / Time No Known Allergies Allergy Verified 04/19/22 13:27 Consultations 04/19/22 14:06 ED Decision to Admit Stat 04/19/22 15:04 Consult Vascular Surgery Routine 04/20/22 09:24 Consult Neurology Routine Ordered Studies 04/19/22 12:58 CT angio head w con Stat CT angio neck with con Stat CT head/brain wo con Stat 04/19/22 14:52 MRI Brain [MR brain wo con] Urgent Hospital Course (1) Cerebral aneurysm without rupture: Patient presents to the hospital with signs of TIA Further investigation with MRI, MRA, did mot show any cerebral infarcts, but showed a 6-8mm anurysm Neuro was consulted and they suggested outpatient neurosurgical evaluation at [facility] to address patient's 6 x 8 mm ACOM aneurysm. (2) Carotid stenosis, symptomatic w/o infarct: Patient also found to have clinically symptomatic carotid stenois Vasclular was conslted, plan is outpatient stent d/c on Plavix, ASA, Statin (3) TIA (transient ischemic attack): D/c on Plavix, ASA, statin Total Time Total Time Spent Total Time Spent (In Minutes): 35 Discharge Plan Discharge Items Patient Disposition: Home - Self-Care Reason For Visit: LOSS OF VISION Discharge Diagnosis: syptomatic carotid stenosis Activity: Resume your previous activity Non-emergency contact: Primary Care Provider Call non-emergency contact if: you have any medication questions Follow-up/Referrals: Pawel Greene DO [Primary Care Provider] - 04/27/22 12:00 pm Andrez English MD [Physician] - (Call [phone] for scheduling or questions about TCAR procedure) Diet: Regular Addtl Attending Provider Instructions: please make appointment to follow up with vascular surgery Pending Studies at Discharge: No Stand-Alone Forms: Medications to Prevent Stroke, My [facility], Smoking Cessation Medications and DC Order Prescriptions: New clopidogrel [Plavix] 75 mg tablet 75 mg PO DAILY Qty: 30 11RF atorvastatin 40 mg tablet 40 mg PO DAILY 30 Days Qty: 30 0RF Continued fluticasone furoate-vilanterol [Breo Ellipta] 100-25 mcg/dose blister with device 1 inh inhalation DAILY Qty: 60 11RF albuterol sulfate [Ventolin HFA] 90 mcg/actuation HFA aerosol inhaler 2 puffs INH Q6H PRN (Reason: Shortness Of Breath) aspirin 81 mg tablet,delayed release (DR/EC) 81 mg PO DAILY coenzyme Q10 60 mg tablet 60 mg PO DAILY fexofenadine [Jillian Allergy] 180 mg tablet 180 mg PO DAILY ascorbic acid (vitamin C) 250 mg tablet 250 mg PO DAILY cholecalciferol (vitamin D3) 25 mcg (1,000 unit) capsule 25 mcg PO DAILY lansoprazole 15 mg capsule,delayed release(DR/EC) 15 mg PO DAILY PRN (Reason: GERD) simvastatin 10 mg tablet 10 mg PO DAILY Qty: 90 3RF Label Comments: per - patient hasnt been taking. sildenafil 25 mg tablet 25 mg PO DAILY PRN (Reason: sexual activity) Qty: 20 5RF Rx Instructions: administer 30 minutes to 4 hours before activity Discharge Orders: Discharge Order (Routine); Ordered 04/20/22 Ordered By: Danial Barksdale Admission Data Admit Date/Time: 04/19/22 14:16 Attending Provider: Danial Barksdale Admit Provider: Kolton Campos Primary Care Provider: Pawel Greene Other Providers: Kolton Campos ; Andrez English ; Cleveland Robertson ; Brennen Chery ; Spring Pereira ; Rica Fields ; Tevin Sauceda ; Rica Burgess ; Jed Adler ; Luzma Bryant ; Murali Durham ; Blanka Gamble ; Carole Raya ; Tevin Guajardo Other Interventions: Discharge Summary Assessment (RN) Last Done: 04/20/22 11:29 Coding Level of Care Code D/C DAY MANAGEMENT >30 MINS Diagnoses Cerebral aneurysm without rupture I67.1 Carotid stenosis, symptomatic w/o infarct I65.29 TIA (transient ischemic attack) G45.9 Time Spent (min) 35
--- NOTE | 2022-04-20 17:07 | XCELERA ---
[id number]
== END 2022-04-20 12:00 | disposition home or self-care (01) ==
LOC: ED 12:42 → 2N 12:42 → SUATTDRO 14:16 → 2N 15:50

== ENCOUNTER 2022-05-03 06:20 | Inpatient (IN) ==
--- NOTE | 2022-04-29 08:48 | Anesthesiology Consultation ---
Date of Service April 29, 2022 Assessment & Plan (1) Encounter for pre-operative examination: Chart Review Chart Review: Acceptable Risk for Surgery and Patient NOT seen in Pre Admission Testing Consults Requested none Additional Notes 6x8mm cerebral aneurysm, seen by neurology, plans to followup with neurosurgery regarding nonurgent outpatient evaluation of aneurysm after carotid procedure History Surgery Operation Date: 05/03/22 08:00 Proposed Procedures p Left Transcarotid Artery Revascularization - Andrez English MD Height/Weight Height: 5 ft 9 in Weight: 79.469 kg Allergies Allergy/AdvReac Type Severity Reaction Status Date / Time No Known Allergies Allergy Verified 04/28/22 13:56 Medications Home Medications Medication Instructions Recorded Confirmed Last Taken albuterol sulfate 90 mcg/actuation 2 puffs inhalation Q6H PRN 03/31/19 04/28/22 Unknown aerosol inhaler (Ventolin HFA) Shortness Of Breath ascorbic acid (vitamin C) 250 mg 250 mg PO Q OTHER DAY 01/20/22 04/28/22 Unknown tablet aspirin 81 mg tablet,delayed 81 mg PO QAM 01/20/22 04/28/22 Unknown release cholecalciferol (vitamin D3) 25 25 mcg PO QAM 01/20/22 04/28/22 Unknown mcg (1,000 unit) capsule fexofenadine 180 mg tablet 180 mg PO QAM 01/20/22 04/28/22 Unknown (Jillian Allergy) atorvastatin 40 mg tablet 40 mg PO QAM 04/28/22 04/28/22 Unknown clopidogrel 75 mg tablet (Plavix) 75 mg PO QAM 04/28/22 04/28/22 Unknown fluticasone furoate 100 1 inh inhalation QPM 04/28/22 04/28/22 Unknown mcg-vilanterol 25 mcg/dose inhalation powder (Breo Ellipta) nicotine 14 mg/24 hr daily 1 patch transdermal DAILY 04/28/22 04/28/22 Unknown transdermal patch omeprazole magnesium 20 mg 20 mg PO DAILY PRN gerd 04/28/22 04/28/22 Unknown tablet,delayed release (Prilosec OTC) quercetin 500 mg capsule 500 mg PO QAM 04/28/22 04/28/22 Unknown sildenafil 50 mg tablet (Viagra) 25 mg PO DAILY PRN Erectile 04/28/22 04/28/22 Unknown Dysfunction Past Medical History Medical History Brain aneurysm newly dx. per recent CT @ [place], 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 Per PCP note, [place] [facility] [place]. Bulging of cervical intervertebral disc Carotid stenosis COPD (chronic obstructive pulmonary disease) DDD (degenerative disc disease) Emphysema of lung GERD (gastroesophageal reflux disease) History of myocardial infarction in his 20s. 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 denies hx cath/stents. unk etiology. History of [place] spotted fever 20 years ago History of TIA (transient ischemic attack) recent hospitalization [facility] HLD (hyperlipidemia) Lumbar herniated disc Osteoarthritis Past Family History Family History Mother Ovarian cancer Other No family history of adverse response to anesthesia Denies family history of Colon cancer Prostate cancer Myocardial infarction Breast cancer Past Surgical History Surgical History H/O hernia repair History of wisdom tooth extraction S/P tonsillectomy Social History Smoking Status: Current every day smoker tobacco type: cigarettes Smoking cigarettes per day: 4-6 Do You Dip or Chew Tobacco: No Hx Alcohol Use: No Hx Substance Use: No substance use type: does not use Testing Electrocardiogram Date: 04/19/22 Findings: + NSR @ Echocardiogram Date: 04/20/22 EF: 60-65 LV Function: normal Stress Test Date: 02/17/22 Type: exercise Findings: + WNL Other Testing Neck CTA: 04/19/22 IMPRESSION: 1. No acute intracranial hemorrhage, evidence of acute territorial infarction, or other acute intracranial disease process. 2. There is hemodynamically significant stenosis of the left internal carotid artery. Prominent atherosclerosis in the right internal carotid artery without hemodynamically significant stenosis. These are likely chronic. 3. There is hemodynamically significant stenosis in the right vertebral artery V4 segment. This is favored to be chronic. 4. 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
[~2022-05-03 06:20] MED LIST changes: +LR 15ML/HR IV SCH; -OTC COLD MEDS
[2022-05-03] MEDS ORDERED: fentaNYL citrate 100 MCG/2 ML VIAL ONE ×2 (06:43→08:47)
[2022-05-03] MEDS ORDERED: ATROPINE SULFATE 0.1 MG/ML 10ML SYR IV PRN (06:55)
[2022-05-03] MEDS ORDERED: fentaNYL citrate 100 MCG/2 ML VIAL IV PRN (06:55)
[2022-05-03] MEDS ORDERED: HYDROmorphone INJ 1 MG/ML SYRINGE IV PRN (06:55)
[2022-05-03] MEDS ORDERED: ONDANSETRON INJ 2 MG/ML 2 ML VIAL IV PRN (06:55)
[2022-05-03] MEDS ORDERED: ePHEDrine sulfate 50 MG/ML AMP IV PRN (06:55)
[2022-05-03] MEDS ORDERED: SUGAMMADEX SODIUM 200 MG/2 ML VIAL IV ONE (06:56)
[2022-05-03] MEDS ORDERED: THROMBIN FOR SOLN 20000 UNIT KIT ONE (07:14)
[2022-05-03] MEDS ORDERED: GELATIN SPONGE SZ 100 ONE (07:14)
[2022-05-03] MEDS ORDERED: ceFAZolin 2000MG 2,000 MG/15 ML SYR IV ONE (07:24)
--- NOTE | 2022-05-03 07:42 | History & Physical Report ---
Date of Service May 03, 2022 History of Present Illness Primary Care Provider: Pawel Greene, April 20, 2022 Assessment & Plan (1) Carotid stenosis, symptomatic w/o infarct: Pt with signfiicant L ICA stenosis and possible L eye amaurosis which has resolved. Pt also seen by Dr English. Recommends pt undergo L sided TCAR procedure in the next 2 weeks. Procedure discussed with pt, he is in agreement. Pt will require 81 mg ASA, statin medication, and plavix prior to his procedure. Plavix started today. Atorvastatin and plavix sent to pharmacy for pt to continue at d/c; pt already on ASA. Cerebral artery aneurysm will need addressed by neurology/neurosurgery. Consult placed for neurology. Please call if needed. History of Present Illness Reason for Consultation: TIA, L ICA stenosis Attending Physician: Danial Barksdale MD History of Present Illness 66 yo m with hx of HTN, GERD, hyperlipidemia, COPD, admitted with L eye amaurosis sx and found to have L ICA stenosis, seen in consultation today for carotid stenosis. Pt states he developed L eye sanchez vision and had trouble focusing yesterday, which lasted at least 20 minutes or so. Called his compliance review specialist for an eval and she noted no abnormalities and sent him to ED. Pt states sx have resolved. Had similar sx about 1 yr ago which lasted about 1 minute. No other concerning sx. Denies facial droop, unilateral weakness numbness or tingling, difficulty speaking or swallowing. Denies JOHNSON, fever, chest pain, SOB, abd pain, N/V, rest pain, claudication, other complaints. CTA neck/head demonstrates L ICA stenosis of 80% as well as mild stenosis of R ICA, vertebral artery disease, and cerebral artery aneurysm. Allergies Allergy/AdvReac Type Severity Reaction Status Date / Time No Known Allergies Allergy Verified 04/19/22 13:27 Home Medications Medication Instructions Recorded Confirmed Type albuterol sulfate 90 mcg/actuation 2 puffs inhalation Q6H PRN 03/31/19 04/19/22 History aerosol inhaler (Ventolin HFA) Shortness Of Breath ascorbic acid (vitamin C) 250 mg 250 mg PO DAILY 01/20/22 2 History tablet aspirin 81 mg tablet,delayed 81 mg PO DAILY 01/20/22 04/19/22 Hi story release cholecalciferol (vitamin D3) 25 25 mcg PO DAILY 01/20/22 04/19/22 History mcg (1,000 unit) capsule coenzyme Q10 60 mg tablet 60 mg PO DAILY 01/20/22 04/19/22 Histo ry fexofenadine 180 mg tablet 180 mg PO DAILY 01/20/22 04/19/22 Hist ory (Jillian Allergy) lansoprazole 15 mg capsule,delayed 15 mg PO DAILY PRN GERD 01/20/22 1 History release sildenafil 25 mg tablet 25 mg PO DAILY PRN sexual activity 01/20/22 1 Rx #20 tabs simvastatin 10 mg tablet 10 mg PO DAILY #90 tabs 01/20/22 04/19/22 Rx fluticasone furoate 100 1 inh inhalation DAILY #60 ea 04/05/22 Rx mcg-vilanterol 25 mcg/dose inhalation powder (Breo Ellipta) atorvastatin 20 mg tablet (Lipitor) 20 mg PO DAILY #30 tabs 04/20/22 Rx clopidogrel 75 mg tablet (Plavix) 75 mg PO DAILY #30 tabs 04/20/22 Rx Patient History Medical History H/O blood clots H/O myocardial infarction, greater than 8 weeks Surgical History H/O hernia repair S/P tonsillectomy Family History Mother Ovarian cancerDenies family history of Colon cancer Prostate cancer Myocardial infarction Breast cancer Social History Smoking Status: Unknown if ever smoked Tobacco Type: Cigarettes Age Started Using Tobacco: 17; Cigarettes Per Day: Less then a pack; Second Hand Exposure: No; Do You Dip or Chew Tobacco: No; Tobacco Cessation Education Requested by Patient: No Hx Alcohol Use: No Hx Substance Use: No Preferred Language: Honduran Communication Ability: Effective Visual Impairment: No Limitations Hearing Ability: Normal Cruise Director Required: No Beliefs That Will Affect Care: None marital status: Current Living Situation: Spouse current occupational status: employed 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 How many Children do You have: 4 Feels Safe at Home: Yes Safety Concerns: Feels Safe At This Time Childhood Exposure to Second-Hand Smoke: Yes caffeine: Yes Dental Care, Regularly: No Physical Activity Frequency: 3-4 Times per Week Seatbelt Use: always Sunscreen Use: No Review of Systems Review of Systems: All systems reviewed & are unremarkable except as noted in HPI & below Physical Exam Constitutional: WD/WN, vitals as above healthy appearing, cooperative and comfortable; not in distress ENMT: Ears: no hearing impairment Neck: trachea midline Respiratory: normal respiratory effort; no respiratory distress Auscultation: lungs clear to auscultation bilaterally and + diminished lung sounds Cardiovascular: Rate/Rhythm: regular rate and regular rhythm Vessels: + carotid bruit, femoral pulses present, posterior tibial pulses present, dorsalis pedis pulses present and radial pulses present; + abnormal peripheral pulses Extremities: normal capillary refill; no edema Gastrointestinal (Abdomen): Inspection/Auscultation: abdomen normal to inspection and normal bowel sounds Percussion/Palpation: abdomen soft; abdomen nontender Musculoskeletal: no cyanosis or clubbing, extremities motor strength 5/5 Skin: no rashes, warm and dry Neurologic: moves all extremities and awake; no focal motor deficits and not confused Psychiatric: A+Ox3, euthymic affect Results & Data ([facility]) Vital Signs (Past 12 Hours) Vital Signs Temp Pulse Pulse Resp BP Pulse Ox O2 Del Method 04/20/22 07:50 36.5 C 67 18 143/79 H 95 Room Air 04/19/22 22:05 92 H 04/19/22 22:57 94 H 04/20/22 02:50 36.4 C L 72 18 148/82 H 97 Room Air 04/19/22 23:07 36.9 C 76 18 136/75 96 Room Air Signed By: <Electronically signed by Rosalinda Escobedo PA-C> 04/20/22 0949 <Electronically signed by Andrez English MD> 04/23/22 0839 Created:04/20/22 0934 The status of this report isSigned. Draft = Not yet reviewed or approved by Medical Physician. Allergies Allergy/AdvReac Type Severity Reaction Status Date / Time No Known Allergies Allergy Verified 05/03/22 06:48 Home Medications Medication Instructions Recorded Confirmed Type albuterol sulfate 90 mcg/actuation 2 puffs inhalation Q6H PRN 03/31/19 04/28/22 History aerosol inhaler (Ventolin HFA) Shortness Of Breath ascorbic acid (vitamin C) 250 mg 250 mg PO Q OTHER DAY 01/20/22 05/03/22 History tablet aspirin 81 mg tablet,delayed 81 mg PO QAM 01/20/22 05/03/22 History release cholecalciferol (vitamin D3) 25 25 mcg PO QAM 01/20/22 05/03/22 History mcg (1,000 unit) capsule fexofenadine 180 mg tablet 180 mg PO QAM 01/20/22 05/03/22 History (Jillian Allergy) atorvastatin 40 mg tablet (Lipitor) 40 mg PO QAM 04/28/22 05/03/22 History clopidogrel 75 mg tablet (Plavix) 75 mg PO QAM 04/28/22 05/03/22 History fluticasone furoate 100 1 inh inhalation QPM 04/28/22 05/03/22 History mcg-vilanterol 25 mcg/dose inhalation powder (Breo Ellipta) nicotine 14 mg/24 hr daily 1 patch transdermal DAILY 04/28/22 05/03/22 History transdermal patch omeprazole magnesium 20 mg 20 mg PO DAILY PRN gerd 04/28/22 05/03/22 History tablet,delayed release (Prilosec OTC) quercetin 500 mg capsule 500 mg PO QAM 04/28/22 05/03/22 History sildenafil 50 mg tablet (Viagra) 25 mg PO DAILY PRN Erectile 04/28/22 05/03/22 History Dysfunction Past Med/Surg History Medical History Brain aneurysm newly dx. per recent CT @ [place], 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 Per PCP note, [place] [facility] [place]. Bulging of cervical intervertebral disc Carotid stenosis COPD (chronic obstructive pulmonary disease) DDD (degenerative disc disease) Emphysema of lung GERD (gastroesophageal reflux disease) History of myocardial infarction in his 20s. 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 denies hx cath/stents. unk etiology. History of [place] spotted fever 20 years ago History of TIA (transient ischemic attack) recent hospitalization [facility] HLD (hyperlipidemia) Lumbar herniated disc Osteoarthritis Surgical History H/O hernia repair History of wisdom tooth extraction S/P tonsillectomy Family History Mother Ovarian cancer Other No family history of adverse response to anesthesia Denies family history of Colon cancer Prostate cancer Myocardial infarction Breast cancer Social History Smoking Status: Current every day smoker Tobacco Type: Cigarettes Age Started Using Tobacco: 17; Cigarettes Per Day: 4-6; Second Hand Exposure: No; Do You Dip or Chew Tobacco: No; Tobacco Cessation Education Requested by Patient: No Hx Alcohol Use: No Hx Substance Use: No Preferred Language: Honduran Communication Ability: Effective Visual Impairment: Limited Hearing Ability: Normal Cruise Director Required: No Beliefs That Will Affect Care: None marital status: Current Living Situation: Spouse current occupational status: employed 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 How many Children do You have: 4 Feels Safe at Home: Yes Safety Concerns: Feels Safe At This Time Childhood Exposure to Second-Hand Smoke: Yes caffeine: Yes during the past year weight has: remained stable Dental Care, Regularly: No Physical Activity Frequency: 3-4 Times per Week Seatbelt Use: always Sunscreen Use: No Do you think of yourself as: straight/heterosexual Gender Identity: Male Assistive Devices: Glasses Results & Data ([facility]) Vital Signs (Past 12 Hours) Vital Signs Temp Pulse Resp BP BP Pulse Ox O2 Del Method 05/03/22 06:57 36.8 C 73 20 133/74 143/72 H 98 Room Air 05/03/22 06:57 Room Air
[2022-05-03] MEDS ORDERED: VISIPAQUE IV ONE (09:13)
[2022-05-03] MEDS ORDERED: SURGICEL ABSORB HEMOSTAT 2IN X 14IN TOP ONE (09:25)
--- NOTE | 2022-05-03 10:10 | Post Operative Brief Note ---
Immediate Post Op Note v1 Date of Surgery May 03, 2022 Pre & Post Diagnosis Operation Date: 05/03/22 08:00 Pre-Op Diagnosis: Left Internal Carotid Artery Stenosis with Amauros Post-Op Diagnosis: Left Internal Carotid Artery Stenosis with Amauros I identified the patient and participated in the time-out.: Yes Procedure Operation Date: 05/03/22 08:00 Actual Procedures p Left Transcarotid Artery Revascularization(Left) - Andrez English MD Surgeon Andrez English MD Neonatal Pediatric Nurse MD Sandi Garcia,PAC Estimated Blood Loss 20 Findings Consistent with Post-Op Diagnosis Anesthesia Type General Complications none Disposition Accompanied Patient To Recovery: No Disposition: Recovery Room
[2022-05-03] MEDS ORDERED: LIDOCAINE 2% MPF LOCAL 5 ML VIAL INFIL ONE (10:46)
[2022-05-03] MEDS ORDERED: PHENYLEPHRINE HCL 10 MG/ML VIAL ONE (10:46)
[2022-05-03] MEDS ORDERED: HEPARIN SOD (PORCINE) 1000 UNIT/ML ONE (10:46)
[2022-05-03] MEDS ORDERED: ePHEDrine sulfate 50 MG/ML SYR ONE (10:46)
[2022-05-03] MEDS ORDERED: ROCURONIUM BROMIDE 10 MG/ML 5 ML VIAL IV ONE (10:46)
[2022-05-03] MEDS ORDERED: PROPOFOL IV EMULSION 10 MG/ML 20 ML VIAL IV ONE (10:46)
[2022-05-03] MEDS ORDERED: GLYCOPYRROLATE 0.2 MG/ML VIAL ONE (10:46)
[2022-05-03] MEDS ORDERED: LARYING-O-JET KIT (LTA) ONE (10:46)
[2022-05-03] MEDS ORDERED: ONDANSETRON INJ 2 MG/ML 2 ML VIAL ONE (10:46)
[2022-05-03] MEDS ORDERED: PROTAMINE SULFATE 10 MG/ML 5 ML VIAL IV ONE (10:46)
--- NOTE | 2022-05-03 10:54 | Procedure Note ---
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 General anesthesia induced and a ET tube placed. An a- line had previously been placed in the preoperative area. A surgical timeout was performed to identify patient, procedure site, indications, and allergies. The patient's head was the turned to the right and the ET tube was secured to the right. The patient's left neck and bilateral groins were prepped and draped in a sterile manner. The patient had a 5cm transverse incision just above the left clavicle using a 10 blade. Using sharp and blunt dissection as well as Bovie electrocautery the subcutaneous tissue and the platysma muscle was incised transversely. The two heads of the SCM were vertically and the common carotid artery was identified. The vagus nerve was also identified. An umbilical tape was placed under the common carotid. A 5-0 Prolene stitch in a u fashion was placed in the common carotid artery. This was secured in place on a shod. At this time 8000U of heparin was given to the patient. After 2-3 minutes an ACT was obtained which was 358. Under ultrasound guidance the right common femoral vein was accessed with an 18 gauge needle and a J wire was inserted. Then the needle was exchanged for an 8 lao sheath and the sheath was secured to the skin with a silk suture. A TCAR time out was performed and the patient had been previously treated with glycopyrrolate. The micropuncture system was used to access the left common carotid through the subcutaneous tissue, the dilator and wire were removed and a cerebral angiogram was performed. The micropuncture wire was reinserted using the dilator and the left external carotid artery was access. The microwire and dilator were removed and exchanged for the stiff J wire. The TCAR sheath was exchanged for the micropuncture sheath. The TCAR sheath was secured to the skin using multiple silk sutures. The reversal of flow system was connect between the arterial sheath in left common carotid and the right common femoral vein. The left common carotid artery was clamped using a profunda clamp. Reversal of flow was confirmed using saline flushes following clamping of the left common carotid. Using the monorail system a 4x30 balloon was placed across the left common into internal bifurcation and was used to predilate the lesion. The balloon was taken to nominal pressure. Then the balloon was exchanged for a 9x40 stent which was deployed across the left internal carotid into the left common carotid. There was residual stenosis of the stent therefore a 5x30 balloon was used to postdilate the distal portion of the stent which improved the stenosis. After waiting 2 minutes of reversal of blood flow following stent manipulation cerebral angiogram were performed in 2 projection with demonstrated patent stent and no signs of dissection or thrombosis. The wire access was removed. The common carotid artery was unclamped for a total of 15 minutes clamp time. The flow reversal system was disconnected and the blood was returned to the patient. The U stitch was tied as the sheath was removed from the common carotid artery. Hemostasis of the access site was obtained using 2 additional stitches of prolene and Surgicel. THe patient was given 25mg of protamine at this time. After 2-3 minutes an ACT was obtained which was 134. The venous sheath was removed and pressure was held to obtain hemostasis. In the neck various muscle and subcutaneous oozing was controlled using Bovie electrocautery. The subcutaneous tissue was closed using a 3-0 Vicryl and the skin was closed using a 4-0 Vicryl. The subcutaneous tunnel for the sheath was closed using Dermabond. The patient was awoken from general anesthesia was was able to move all limbs. The patient was taken to the PACU for recovery. I, Dr. English was present and scrubbed for the entire procedure. I attest to the content of the Intraoperative Record and any orders documented therein. Any exceptions are noted below.
[2022-05-03] MEDS ORDERED: oxyCODONE/ACETAMINOPHEN 5mg/325mg TAB PO PRN (11:40)
[2022-05-03] MEDS ORDERED: LACTATED RINGER'S 1,000 ML IV SCH (11:40)
[2022-05-03] MEDS ORDERED: ALBUTEROL HFA 8 GM INHALER INH PRN (11:40)
[2022-05-03] MEDS ORDERED: STAT IV Infusion **Titration per Protocol STA (11:40)
[2022-05-03] MEDS ORDERED: NON-FORMULARY MEDICATION (Sildenafil [Viagra] 50 mg Tablet) PO PRN (11:40)
[2022-05-03] MEDS ORDERED: ASCORBIC ACID 500 MG TAB PO SCH (11:50)
[2022-05-03] MEDS ORDERED: PANTOprazole 40 MG TAB PO PRN (11:53)
--- NOTE | 2022-05-03 14:14 | Anesthesiology Progress Note ---
Date of Service May 03, 2022 Anesthesia Post Procedure Vital Signs Vital Signs: Temp Pulse Pulse Pulse Resp BP BP 05/03/22 13:30 67 19 05/03/22 13:15 72 21 05/03/22 13:00 75 18 05/03/22 12:45 69 17 05/03/22 12:30 77 16 05/03/22 12:15 82 23 05/03/22 12:00 72 14 05/03/22 11:45 91 H 17 05/03/22 11:33 114/66 05/03/22 11:33 83 14 05/03/22 11:31 05/03/22 12:00 05/03/22 11:15 91 H 12 125/57 L 05/03/22 11:05 36.5 C 84 13 128/55 L 05/03/22 10:55 97 H 19 112/63 05/03/22 10:45 101 H 22 106/72 05/03/22 10:37 36.2 C L 97 H 16 120/72 05/03/22 06:57 36.8 C 73 20 133/74 05/03/22 06:57 BP BP Pulse Ox O2 Del Method O2 Flow Rate 05/03/22 13:30 97 05/03/22 13:15 96 05/03/22 13:00 97 05/03/22 12:45 94 05/03/22 12:30 93 05/03/22 12:15 91 05/03/22 12:00 93 05/03/22 11:45 92 05/03/22 11:33 05/03/22 11:33 95 05/03/22 11:31 95 05/03/22 12:00 Room Air 05/03/22 11:15 101/62 94 Room Air 05/03/22 11:05 105/60 95 Room Air 05/03/22 10:55 109/65 99 Oxymask 4 05/03/22 10:45 87/40 L 99 Oxymask 6 05/03/22 10:37 115/76 99 Oxymask 6 05/03/22 06:57 143/72 H 98 Room Air 05/03/22 06:57 Room Air Pain Intensity Neck: Pain Intensity: 2 Transfer of Care Handoff Completed per policy Notes Mental Status: alert / awake / arousable and participated in evaluation Patient Amnestic to Procedure: Yes Nausea / Vomiting: adequately controlled Pain: adequately controlled Airway Patency, RR, SpO2: stable & adequate BP & HR: stable & adequate Hydration State: stable & adequate Anesthetic Complications: no major complications apparent and Pt Satisfied with anesthetic care
--- NOTE | 2022-05-03 14:25 | Critical Care Consultation ---
Date of Consultation May 03, 2022 Assessment & Plan (1) COPD (chronic obstructive pulmonary disease): (2) TIA (transient ischemic attack): (3) Carotid stenosis, symptomatic w/o infarct: (4) Cerebral aneurysm without rupture: Plan Chest x-ray 04/27/2022: PA/lateral view, good respiratory effort, bilateral costophrenic and cardiophrenic angles are clean, no clear lung infiltrate appreciated --Carotid artery stenosis S/p Left TCAR 05/03/[address] English Continue with neurochecks Monitor for any signs of bleeding 2D echo 04/20/2022: EF 60-65%, RV normal in size and function --COPD with emphysema Gold class C/D On Breo at home Would recommend to be changed to Anoro or Stiolto on discharge Can also consider [facility] Outpatient pulmonary follow-up PFT 06/05/2019 personally reviewed: Very severe obstructive lung dysfunction with significant bronchodilator response, air trapping, moderate decrease in DLCO FEV1 27%, FVC 55%, FEV1/FVC 39%, DLCO 57%, TLC 93%, RV 156 percent RV/TLC 145% --GERD Continue with Pepcid --Dyslipidemia Continue with atorvastatin --Prophylaxis VTE: IPC GI: Pepcid Lines: Left radial Diet: Cardiac Plan: Monitor H&H Continue with neurochecks Patient has been able to be titrated off phenylephrine If the patient complains of significant pain from the left radial line then will consider taking it out given the patient is hemodynamically stable since coming to the ICU Please note the above document was generated using voice recognition software. It may contain grammatical, syntax or spelling errors.Any formal questions or concerns about the content, text or information contained within the body of this dictation should be directly addressed to the provider for clarification. History of Present Illness Attending Physician: Andrez English MD History of Present Illness 66-year-old male came to the hospital to deal with carotid stenosis Past medical history: GERD, dyslipidemia, COPD Patient was admitted in the hospital end of March and discharged early April Patient is s/p TCAR, in the ICU for observation At the time of examination patient was not in any distress He was taken off phenylephrine drip. His map was in the 70s. He complained of mild pain at the site of the left radial line. Denied any numbness or tingling sensation in the left fingers. No nausea or vomiting Did have his lunch. No headache, no blurry vision Denies any shortness of breath, no chest pain. Social history: Greater than [id number] smoking history, currently smoking half a pack a day. Allergies Allergy/AdvReac Type Severity Reaction Status Date / Time No Known Allergies Allergy Verified 05/03/22 06:48 Home Medications Medication Instructions Recorded Confirmed Type albuterol sulfate 90 mcg/actuation 2 puffs inhalation Q6H PRN 03/31/19 04/28/22 History aerosol inhaler (Ventolin HFA) Shortness Of Breath ascorbic acid (vitamin C) 250 mg 250 mg PO Q OTHER DAY 01/20/22 05/03/22 History tablet aspirin 81 mg tablet,delayed 81 mg PO QAM 01/20/22 05/03/22 History release cholecalciferol (vitamin D3) 25 25 mcg PO QAM 01/20/22 05/03/22 History mcg (1,000 unit) capsule fexofenadine 180 mg tablet 180 mg PO QAM 01/20/22 05/03/22 History (Jillian Allergy) atorvastatin 40 mg tablet (Lipitor) 40 mg PO QAM 04/28/22 05/03/22 History clopidogrel 75 mg tablet (Plavix) 75 mg PO QAM 04/28/22 05/03/22 History fluticasone furoate 100 1 inh inhalation QPM 04/28/22 05/03/22 History mcg-vilanterol 25 mcg/dose inhalation powder (Breo Ellipta) nicotine 14 mg/24 hr daily 1 patch transdermal DAILY 04/28/22 05/03/22 History transdermal patch omeprazole magnesium 20 mg 20 mg PO DAILY PRN gerd 04/28/22 05/03/22 History tablet,delayed release (Prilosec OTC) quercetin 500 mg capsule 500 mg PO QAM 04/28/22 05/03/22 History sildenafil 50 mg tablet (Viagra) 25 mg PO DAILY PRN Erectile 04/28/22 05/03/22 History Dysfunction Patient History Medical History Brain aneurysm newly dx. per recent CT @ [place], 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 Per PCP note, referred to [facility] neurosurgery. Bulging of cervical intervertebral disc Carotid stenosis COPD (chronic obstructive pulmonary disease) DDD (degenerative disc disease) Emphysema of lung GERD (gastroesophageal reflux disease) History of myocardial infarction in his 20s. does not follow with learning design specialist. denies hx cath/stents. unk etiology. History of [place] spotted fever 20 years ago History of TIA (transient ischemic attack) recent hospitalization [facility] HLD (hyperlipidemia) Lumbar herniated disc Osteoarthritis Surgical History H/O hernia repair History of wisdom tooth extraction S/P tonsillectomy Family History Mother Ovarian cancer Other No family history of adverse response to anesthesia Denies family history of Colon cancer Prostate cancer Myocardial infarction Breast cancer Social History Smoking Status: Current every day smoker Tobacco Type: Cigarettes Age Started Using Tobacco: 17; Cigarettes Per Day: 4-6; Second Hand Exposure: No; Do You Dip or Chew Tobacco: No; Tobacco Cessation Education Requested by Patient: No Hx Alcohol Use: No Hx Substance Use: No Preferred Language: [place]ese Communication Ability: Effective Visual Impairment: Limited Hearing Ability: Normal Service Or Work Dispatcher Chief Required: No Beliefs That Will Affect Care: None marital status: Current Living Situation: Spouse current occupational status: employed 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 How many Children do You have: 4 Feels Safe at Home: Yes Safety Concerns: Feels Safe At This Time Childhood Exposure to Second-Hand Smoke: Yes caffeine: Yes during the past year weight has: remained stable Dental Care, Regularly: No Physical Activity Frequency: 3-4 Times per Week Seatbelt Use: always Sunscreen Use: No Do you think of yourself as: straight/heterosexual Gender Identity: Male Assistive Devices: Glasses Review of Systems Review of Systems: All systems reviewed & are unremarkable except as noted in HPI & below Physical Exam Physical Exam: Constitutional: No acute distress HEENT: EOMI, PERRLA, left sided incision in place Respiratory system: Decreased air entry bilaterally, no wheeze, no rhonchi, positive crackles bilateral lower lobes CVS: S1-S2 positive, no murmurs or gallops Abdomen: Soft, nontender, nondistended, positive bowel sounds x4 Extremities: +2 pulses bilaterally radialis/ dorsalis pedis, no cyanosis, no edema Neuro: Awake alert oriented x3 Psych: Normal mood and affect G/U: No [place] Skin: no rashes, warm and dry Lymphatic: no cervical or axillary lymphadenopathy Results & Data Results & Data ([facility]) Vital Signs (Past 12 Hours) Vital Signs Temp Pulse Pulse Pulse Resp BP BP 05/03/22 13:30 67 19 05/03/22 13:15 72 21 05/03/22 13:00 75 18 05/03/22 12:45 69 17 05/03/22 12:30 77 16 05/03/22 12:15 82 23 05/03/22 12:00 72 14 05/03/22 11:45 91 H 17 05/03/22 11:33 114/66 05/03/22 11:33 83 14 05/03/22 11:31 05/03/22 12:00 05/03/22 11:15 91 H 12 125/57 L 05/03/22 11:05 36.5 C 84 13 128/55 L 05/03/22 10:55 97 H 19 112/63 05/03/22 10:45 101 H 22 106/72 05/03/22 10:37 36.2 C L 97 H 16 120/72 05/03/22 06:57 36.8 C 73 20 133/74 05/03/22 06:57 BP BP Pulse Ox O2 Del Method O2 Flow Rate 05/03/22 13:30 97 05/03/22 13:15 96 05/03/22 13:00 97 05/03/22 12:45 94 05/03/22 12:30 93 05/03/22 12:15 91 05/03/22 12:00 93 05/03/22 11:45 92 05/03/22 11:33 05/03/22 11:33 95 05/03/22 11:31 95 05/03/22 12:00 Room Air 05/03/22 11:15 101/62 94 Room Air 05/03/22 11:05 105/60 95 Room Air 05/03/22 10:55 109/65 99 Oxymask 4 05/03/22 10:45 87/40 L 99 Oxymask 6 05/03/22 10:37 115/76 99 Oxymask 6 05/03/22 06:57 143/72 H 98 Room Air 05/03/22 06:57 Room Air Coding Level of Care Code 29103 Inpt Consult Level 4 Diagnoses COPD (chronic obstructive pulmonary disease) J44.9 TIA (transient ischemic attack) G45.9 Carotid stenosis, symptomatic w/o infarct I65.29 Cerebral aneurysm without rupture I67.1
[2022-05-03] MEDS: ceFAZolin 2000MG 2,000 MG/15 ML SYR IV SCH ×2 (16:21→23:56)
[2022-05-03] MEDS: PHENYLEPHRINE HCL 20 MG in DEXTROSE 5% 500 ML IV SCH (17:42)
[2022-05-03] MEDS ORDERED: PANTOprazole 40 MG TAB PO SCH (19:30)
[2022-05-03] MEDS ORDERED: FLUTICASONE/VILANTEROL 100/25MCG 14 PUFFS/INHALER INH SCH (21:00)
[2022-05-03] MEDS ORDERED: ALUMINUM/MAGNESIUM SUSP 18 ML, LIDOCAINE VISCOUS 2% SOLN 6 ML, BARCODE IDENTIFIER 1 EACH PO ONE (21:23)
[2022-05-04] MEDS: PHENYLEPHRINE HCL 20 MG in DEXTROSE 5% 500 ML IV SCH (06:43)
--- NOTE | 2022-05-04 08:30 | Surgery Progress Note ---
Date of Service May 04, 2022 Assessment & Plan (1) Presence of internal carotid stent: Plan: POD #1 after L TCAR, doing well post op. Also seen by Dr English today. OK for d/c home today. Admission and Anticipated Discharge Date Admission Date: May 03, 2022 Subjective 66 yo m POD #1 after L TCAR, seen in f/u today. Pt states he is tired and did not sleep much overnight d/t not being at home. Admits some pain in L neck incision. Denies any new neuro complaints. Review of Systems Review of Systems: All systems reviewed & are unremarkable except as noted in HPI & below Physical Exam Constitutional: WD/WN, vitals as above Neck: L supraclavicular incision C/D/I. +tender. No swelling or erythema Respiratory: normal respiratory effort, lungs clear to auscultation Auscultation: + diminished lung sounds Cardiovascular: Rate/Rhythm: regular rate and regular rhythm Vessels: femoral pulses present, posterior tibial pulses present, dorsalis pedis pulses present and radial pulses present; + abnormal peripheral pulses Extremities: normal capillary refill R groin venous puncture site C/D/I Gastrointestinal (Abdomen): Inspection/Auscultation: abdomen normal to inspection and normal bowel sounds Percussion/Palpation: abdomen soft; abdomen nontender Musculoskeletal: no cyanosis or clubbing, extremities motor strength 5/5 Skin: no rashes, warm and dry Neurologic: CN's II-XI intact bilaterally, moves all extremities and awake; no focal motor deficits and not confused Speech / Cognition: normal speech Psychiatric: A+Ox3, euthymic affect Results & [facility] ([facility]) Vital Signs (Past 12 Hours) Vital Signs Temp Pulse Resp BP Pulse Ox O2 Del Method 05/04/22 06:00 61 16 98 05/04/22 06:00 111/61 05/04/22 05:00 68 19 94 05/04/22 05:00 112/56 L 05/04/22 06:37 37.2 C 05/04/22 04:00 72 18 95 05/04/22 04:00 104/55 L 05/04/22 03:00 74 18 95 05/04/22 03:00 121/67 05/04/22 02:00 60 19 97 Room Air 05/04/22 02:00 108/55 L 05/04/22 01:00 66 16 93 05/04/22 01:00 103/55 L 05/04/22 00:00 59 L 05/04/22 00:00 60 18 97 05/04/22 00:00 104/56 L 05/04/22 00:00 36.9 C 05/03/22 23:00 37.1 C 66 20 97 05/03/22 23:00 114/71 05/03/22 22:00 60 14 98 05/03/22 22:00 142/79 H 05/03/22 21:01 60 19 98 05/03/22 21:01 113/62 05/03/22 21:00 74 15 96
--- NOTE | 2022-05-04 08:31 | Discharge Summary ---
Date of Service May 04, 2022 Admission HPI Per Admitting Provider April 20, 2022 Assessment & Plan (1) Carotid stenosis, symptomatic w/o infarct: Pt with signfiicant L ICA stenosis and possible L eye amaurosis which has resolved. Pt also seen by Dr English. Recommends pt undergo L sided TCAR procedure in the next 2 weeks. Procedure discussed with pt, he is in agreement. Pt will require 81 mg ASA, statin medication, and plavix prior to his procedure. Plavix started today. Atorvastatin and plavix sent to pharmacy for pt to continue at d/c; pt already on ASA. Cerebral artery aneurysm will need addressed by neurology/neurosurgery. Consult placed for neurology. Please call if needed. History of Present Illness Reason for Consultation: TIA, L ICA stenosis Attending Physician: Danial Barksdale MD History of Present Illness 66 yo m with hx of HTN, GERD, hyperlipidemia, COPD, admitted with L eye amaurosis sx and found to have L ICA stenosis, seen in consultation today for carotid stenosis. Pt states he developed L eye sanchez vision and had trouble focusing yesterday, which lasted at least 20 minutes or so. Called his allocation analyst for an eval and she noted no abnormalities and sent him to ED. Pt states sx have resolved. Had similar sx about 1 yr ago which lasted about 1 minute. No other concerning sx. Denies facial droop, unilateral weakness numbness or tingling, difficulty speaking or swallowing. Denies JOHNSON, fever, chest pain, SOB, abd pain, N/V, rest pain, claudication, other complaints. CTA neck/head demonstrates L ICA stenosis of 80% as well as mild stenosis of R ICA, vertebral artery disease, and cerebral artery aneurysm. Allergies Allergy/AdvReac Type Severity Reaction Status Date / Time No Known Allergies Allergy Verified 04/19/22 13:27 Home Medications Medication Instructions Recorded Confirmed Type albuterol sulfate 90 mcg/actuation 2 puffs inhalation Q6H PRN 03/31/19 04/19/22 History aerosol inhaler (Ventolin HFA) Shortness Of Breath ascorbic acid (vitamin C) 250 mg 250 mg PO DAILY 01/20/22 2 History tablet aspirin 81 mg tablet,delayed 81 mg PO DAILY 01/20/22 04/19/22 Hi story release cholecalciferol (vitamin D3) 25 25 mcg PO DAILY 01/20/22 04/19/22 History mcg (1,000 unit) capsule A coenzyme Q10 60 mg tablet 60 mg PO DAILY 01/20/22 04/19/22 Histo ry fexofenadine 180 mg tablet 180 mg PO DAILY 01/20/22 04/19/22 Hist ory (Jillian Allergy) lansoprazole 15 mg capsule,delayed 15 mg PO DAILY PRN GERD 01/20/22 1 History release sildenafil 25 mg tablet 25 mg PO DAILY PRN sexual activity 01/20/22 1 Rx #20 tabs simvastatin 10 mg tablet 10 mg PO DAILY #90 tabs 01/20/22 04/19/22 Rx fluticasone furoate 100 1 inh inhalation DAILY #60 ea 04/05/22 Rx mcg-vilanterol 25 mcg/dose inhalation powder (Breo Ellipta) atorvastatin 20 mg tablet (Lipitor) 20 mg PO DAILY #30 tabs 04/20/22 Rx clopidogrel 75 mg tablet (Plavix) 75 mg PO DAILY #30 tabs 04/20/22 Rx Patient History Medical History H/O blood clots H/O myocardial infarction, greater than 8 weeks Surgical History H/O hernia repair S/P tonsillectomy Family History Mother Ovarian cancerDenies family history of Colon cancer Prostate cancer Myocardial infarction Breast cancer Social History Smoking Status: Unknown if ever smoked Tobacco Type: Cigarettes Age Started Using Tobacco: 17; Cigarettes Per Day: Less then a pack; Second Hand Exposure: No; Do You Dip or Chew Tobacco: No; Tobacco Cessation Education Requested by Patient: No Hx Alcohol Use: No Hx Substance Use: No Preferred Language: Sami Communication Ability: Effective Visual Impairment: No Limitations Hearing Ability: Normal Chief Clinical Officer Required: No Beliefs That Will Affect Care: None marital status: Current Living Situation: Spouse current occupational status: employed 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 How many Children do You have: 4 Feels Safe at Home: Yes Safety Concerns: Feels Safe At This Time Childhood Exposure to Second-Hand Smoke: Yes caffeine: Yes Dental Care, Regularly: No Physical Activity Frequency: 3-4 Times per Week Seatbelt Use: always Sunscreen Use: No Review of Systems Review of Systems: All systems reviewed & are unremarkable except as noted in HPI & below Physical Exam Constitutional: WD/WN, vitals as above healthy appearing, cooperative and comfortable; not in distress ENMT: Ears: no hearing impairment Neck: trachea midline Respiratory: normal respiratory effort; no respiratory distress Auscultation: lungs clear to auscultation bilaterally and + diminished lung sounds Cardiovascular: Rate/Rhythm: regular rate and regular rhythm Vessels: + carotid bruit, femoral pulses present, posterior tibial pulses present, dorsalis pedis pulses present and radial pulses present; + abnormal peripheral pulses Extremities: normal capillary refill; no edema Gastrointestinal (Abdomen): Inspection/Auscultation: abdomen normal to inspection and normal bowel sounds Percussion/Palpation: abdomen soft; abdomen nontender Musculoskeletal: no cyanosis or clubbing, extremities motor strength 5/5 Skin: no rashes, warm and dry Neurologic: moves all extremities and awake; no focal motor deficits and not confused Psychiatric: A+Ox3, euthymic affect Results & Data ([facility]) Vital Signs (Past 12 Hours) Vital Signs Temp Pulse Pulse Resp BP Pulse Ox O2 Del Method 04/20/22 07:50 36.5 C 67 18 143/79 H 95 Room Air 04/19/22 22:05 92 H 04/19/22 22:57 94 H 04/20/22 02:50 36.4 C LA 72 18 148/82 H 97 Room Air 04/19/22 23:07 36.9 C 76 18 136/75 96 Room Air Signed By: <Electronically signed by Rosalinda Escobedo PA-C> 04/20/22 0949 <Electronically signed by Andrez English MD> 04/23/22 0839 Created:04/20/22 0934 The status of this report isSigned. Draft = Not yet reviewed or approved by Medical Physician. Admission Exam Per Admitting Provider Constitutional: WD/WN, vitals as above healthy appearing, cooperative and comfortable; not in distress ENMT: Ears: no hearing impairment Neck: trachea midline Respiratory: normal respiratory effort; no respiratory distress Auscultation: lungs clear to auscultation bilaterally and + diminished lung sounds Cardiovascular: Rate/Rhythm: regular rate and regular rhythm Vessels: + roy tid bruit, femoral pulses present, posterior tibial pulses present, dorsalis pedis pulses present and radial pulses present; + abnormal peripheral pulses Extremities: normal capillary refill; no edema Gastrointestinal (Abdomen): Inspection/Auscultation: abdomen normal to inspection and normal bowel sounds Percussion/Palpation: abdomen soft; abdomen nontender Musculoskeletal: no cyanosis or clubbing, extremities motor strength 5/5 Skin: no rashes, warm and dry Neurologic: moves all extremities and awake; no focal motor deficits and not confused Psychiatric: A+Ox3, euthymic affect Principal Diagnosis 1. s/p L TCAR 2. Symptomatic L ICA stenosis Discharge Exam Constitutional WD/WN, vitals as above Respiratory normal respiratory effort, lungs clear to auscultation Auscultation: + diminished lung sounds Cardiovascular Rate/Rhythm: regular rate and regular rhythm Vessels: femoral pulses present, posterior tibial pulses present, dorsalis pedis pulses present and radial pulses present; + abnormal peripheral pulses Extremities: normal capillary refill Gastrointestinal (Abdomen) Inspection/Auscultation: abdomen normal to inspection and normal bowel sounds Percussion/Palpation: abdomen soft; abdomen nontender Musculoskeletal no cyanosis or clubbing, extremities motor strength 5/5 Skin no rashes, warm and dry Neurologic CN's II-XI intact bilaterally, moves all extremities and awake; no focal motor deficits and not confused Speech / Cognition: normal speech Psychiatric A+Ox3, euthymic affect Discharge Data Allergies Allergy/AdvReac Type Severity Reaction Status Date / Time No Known Allergies Allergy Verified 05/03/22 06:48 Consultations 05/03/22 12:42 Consult Customer Service Officer Routine Procedures Performed Operation Date: 05/03/22 08:00 Actual Procedures p Left Transcarotid Artery Revascularization(Left) - Andrez English MD Ordered Studies 05/03/22 07:02 EV angio carotid cerv LT Routine Hospital Course (1) Presence of internal carotid stent: POD #1 after L TCAR, doing well post op. Also seen by Dr English today. OK for d/c home today. Total Time Total Time Spent Total Time Spent (In Minutes): 0 Discharge Plan Discharge Items Patient Disposition: Home - Self-Care Reason For Visit: Left Internal Carotid Artery Stenosis with Amauros Discharge Diagnosis: 1. s/p Left transcarotid artery revascularization 2. L ICA stenosis symptomatic Activity: Per Instructions section Non-emergency contact: Primary Care Provider and Surgeon Call non-emergency contact if: you have any medication questions, your pain is not controlled, your pain is concerning for you, you have a fever, your wound has increased redness and your wound has increased drainage Follow-up/Referrals: Pawel Greene DO [Primary Care Provider] - (Follow up with your PCP in 2 weeks) Andrez English MD [Physician] - (Follow up with Dr English or Rosalinda Escobedo PA-C in 2 weeks) Diet: Heart Healthy Addtl Attending Provider Instructions: SPECIAL CARE INSTRUCTIONS: Medications: * Continue to take Aspirin, Plavix and atorvastatin. DO NOT STOP THESE MEDICATIONS FOR A MINIMUM OF 30 DAYS, although 1 year is preferable. Incision Care: * You may shower, but do not rub incision. You may let the warm soapy water run over it. Be sure to dry the incision well after bathing. * Do not shave directly over the incision until it is healed. * DO NOT IMMERSE THE INCISION IN A TUB/POOL/etc. UNTIL HEALED. Restrictions: * Do not drive for at least one week or if you are still taking any narcotic pain medication. * Do not lift anything heavier than a gallon of milk for one week after going home. Possible Complications: * Numbness - It is normal to have some numbness around the incision. Numbness can extend beyond the incision to areas of the neck, ear and face. The numbness is due to bruising of nerves during the surgery and will gradually improve over a period of months. * Hoarseness/Difficulty Speaking and Swallowing - The bruising of nerves in the neck can also cause a hoarse voice, difficulty speaking or swallowing. This may improve over time, HOWEVER, if it continues for more than a few days please contact our office ([phone]). * Excessive Swelling - There will be some swelling immediately after surgery which usually resolves within one week. If you notice that the swelling is getting worse, notify your surgeon ([phone]). * Drainage/Bleeding - If there is any drainage or bleeding, it should be a very small amount (less than a teaspoon per day). If you have excessive bleeding or drainage from the incision, call your surgeon ([phone]) right away. ACTIVATION OF EMERGENCY MEDICAL SYSTEM: Call 911, immediately, if you experience any of the following: Warning Signs and Symptoms of Stroke: * Sudden numbness or weakness of the face, arm or leg, especially on one side of the body * Sudden confusion, trouble speaking or understanding * Sudden trouble seeing in one or both eyes * Sudden trouble walking, dizziness, loss of balance or coordination * Sudden severe headache with no cause Do not delay calling 911 if you experience any warning signs or symptoms of a stroke. Delay in seeking medical attention may affect what treatments can be given to you. Risk Factors for Stroke: You can reduce your chances of stroke by working with your medical provider to adopt a healthy lifestyle. Some specific ways to lower your chance of stroke are: * If you are a smoker, now is the time to stop smoking cigarettes * If you are diabetic, improve the control of your blood sugars * Avoid excessive amounts of alcohol * Control high blood pressure * Lose weight if you are overweight * Be sure to lead an active lifestyle * Eat a healthy diet low in salt, cholesterol and fat You should know about other risk factors for stroke that you are unable to control. These include: * Age 55 years or older * Male gender * Certain racial groups: , or / * Family History of Stroke, Mini stroke or Heart Attack * Sickle Cell Disease You will be receiving a call from the Vascular Surgery Nurse after you are discharged. FOLLOW UP VISIT: It is important for you to keep your follow up appointments with your medical provider. Keep any scheduled doctor appointments. Pending Studies at Discharge: No Stand-Alone Forms: My [employer], Smoking Cessation Medications and DC Order Prescriptions: New oxycodone-acetaminophen [Percocet] 5-325 mg Tablet 1 - 2 tab PO Q6H PRN (Reason: pain) Qty: 14 0RF Continued albuterol sulfate [Ventolin HFA] 90 mcg/actuation HFA aerosol inhaler 2 puffs INH Q6H PRN (Reason: Shortness Of Breath) aspirin 81 mg tablet,delayed release (DR/EC) 81 mg PO QAM fexofenadine [Jillian Allergy] 180 mg tablet 180 mg PO QAM ascorbic acid (vitamin C) 250 mg tablet 250 mg PO Q OTHER DAY cholecalciferol (vitamin D3) 25 mcg (1,000 unit) capsule 25 mcg PO QAM sildenafil [Viagra] 50 mg Tablet 25 mg PO DAILY PRN (Reason: Erectile Dysfunction) Rx Instructions: administer 30 minutes to 4 hours before activity quercetin 500 mg Capsule 500 mg PO QAM atorvastatin [Lipitor] 40 mg tablet 40 mg PO QAM clopidogrel [Plavix] 75 mg tablet 75 mg PO QAM fluticasone furoate-vilanterol [Breo Ellipta] 100-25 mcg/dose blister with device 1 inh inhalation QPM nicotine 14 mg/24 hr Patch 24 Hour 1 patch TRANSDERMAL DAILY Rx Instructions: took off this am 0030 omeprazole magnesium [Prilosec OTC] 20 mg Tablet,Delayed Release (Dr/Ec) 20 mg PO DAILY PRN (Reason: gerd) Discharge Orders: Discharge Order (Routine); Ordered 05/04/22 Ordered By: Rosalinda Escobedo Admission Data Admit Date/Time: 05/03/22 07:41 Attending Provider: Andrez English Admit Provider: Andrez English Primary Care Provider: Pawel Greene Other Providers: Bhavin Canela ; Cleveland Jimenez ; Maurizio Luna ; Fredis Fatima ; Wayne Escudero ; Nacho Jett ; Emily Lugo ; Lee Duarte ; Christine Fernandes
--- NOTE | 2022-05-04 08:59 | Critical Care Progress Note ---
Date of Service May 04, 2022 Assessment & Plan (1) COPD (chronic obstructive pulmonary disease): (2) TIA (transient ischemic attack): (3) Carotid stenosis, symptomatic w/o infarct: (4) Cerebral aneurysm without rupture: Plan Chest x-ray 04/27/2022: PA/lateral view, good respiratory effort, bilateral costophrenic and cardiophrenic angles are clean, no clear lung infiltrate appreciated --Carotid artery stenosis S/p Left TCAR 05/03/[address] English Continue with neurochecks Monitor for any signs of bleeding 2D echo 04/20/2022: EF 60-65%, RV normal in size and function --COPD with emphysema Gold class C/D On Breo at home Would recommend to be changed to Anoro or Stiolto on discharge Can also consider Trelegy Outpatient pulmonary follow-up PFT 06/05/2019 personally reviewed: Very severe obstructive lung dysfunction with significant bronchodilator response, air trapping, moderate decrease in DLCO FEV1 27%, FVC 55%, FEV1/FVC 39%, DLCO 57%, TLC 93%, RV 156 percent RV/TLC 145% --GERD Continue with Pepcid --Dyslipidemia Continue with atorvastatin --Prophylaxis VTE: IPC GI: Pepcid Lines: Left radial Diet: Cardiac Plan: In/out: +3.5 L, urine output 345, we do not have a good urine output measurement Is hemodynamically stable. Disposition as per vascular surgery Please note the above document was generated using voice recognition software. It may contain grammatical, syntax or spelling errors.Any formal questions or concerns about the content, text or information contained within the body of this dictation should be directly addressed to the provider for clarification. Admission and Anticipated Discharge Date Admission Date: May 03, 2022 Subjective Patient seen and examined at bedside. No acute distress, no adverse events overnight Soreness in the throat has improved No nausea vomiting No chest pain, no shortness of breath Has been off of phenylephrine since coming to the ICU Map at the time of examination was in the 70s Review of Systems Review of Systems: All systems reviewed & are unremarkable except as noted in Subjective Physical Exam Physical Exam: Constitutional: No acute distress HEENT: EOMI, PERRLA, left sided incision in place Respiratory system: Decreased air entry bilaterally, no wheeze, no rhonchi, positive crackles bilateral lower lobes CVS: S1-S2 positive, no murmurs or gallops Abdomen: Soft, nontender, nondistended, positive bowel sounds x4 Extremities: +2 pulses bilaterally radialis/ dorsalis pedis, no cyanosis, no edema Neuro: Awake alert oriented x3 Psych: Normal mood and affect G/U: No Jameson Skin: no rashes, warm and dry Lymphatic: no cervical or axillary lymphadenopathy Results & Data Results & Data ([facility]) Vital Signs (Past 12 Hours) Vital Signs Temp Pulse Pulse Resp BP BP BP 05/04/22 08:00 72 22 05/04/22 08:00 108/56 L 05/04/22 07:01 101/58 L 05/04/22 07:01 83 17 05/04/22 07:00 73 15 05/04/22 08:43 37.0 C 64 22 108/56 L 127/53 L 05/04/22 08:00 72 05/04/22 06:00 61 16 05/04/22 06:00 111/61 05/04/22 05:00 68 19 05/04/22 05:00 112/56 L 05/04/22 06:37 37.2 C 05/04/22 04:00 72 18 05/04/22 04:00 104/55 L 05/04/22 03:00 74 18 05/04/22 03:00 121/67 05/04/22 02:00 60 19 05/04/22 02:00 108/55 L 05/04/22 01:00 66 16 05/04/22 01:00 103/55 L 05/04/22 00:00 59 L 05/04/22 00:00 60 18 05/04/22 00:00 104/56 L 05/04/22 00:00 36.9 C 05/03/22 23:00 37.1 C 66 20 05/03/22 23:00 114/71 05/03/22 22:00 60 14 05/03/22 22:00 142/79 H 05/03/22 21:01 60 19 05/03/22 21:01 113/62 05/03/22 21:00 74 15 Pulse Ox O2 Del Method 05/04/22 08:00 97 Room Air 05/04/22 08:00 05/04/22 07:01 05/04/22 07:01 95 05/04/22 07:00 96 05/04/22 08:43 96 05/04/22 08:00 05/04/22 06:00 98 05/04/22 06:00 05/04/22 05:00 94 05/04/22 05:00 05/04/22 06:37 05/04/22 04:00 95 05/04/22 04:00 05/04/22 03:00 95 05/04/22 03:00 05/04/22 02:00 97 Room Air 05/04/22 02:00 05/04/22 01:00 93 05/04/22 01:00 05/04/22 00:00 05/04/22 00:00 97 05/04/22 00:00 05/04/22 00:00 05/03/22 23:00 97 05/03/22 23:00 05/03/22 22:00 98 05/03/22 22:00 05/03/22 21:01 98 05/03/22 21:01 05/03/22 21:00 96 Coding Level of Care Code 42605 Subseq Hosp Care Lvl 2 Diagnoses COPD (chronic obstructive pulmonary disease) J44.9 TIA (transient ischemic attack) G45.9 Carotid stenosis, symptomatic w/o infarct I65.29 Cerebral aneurysm without rupture I67.1
[2022-05-04] MEDS ORDERED: ATORVASTATIN 40 MG TAB PO SCH (09:00)
[2022-05-04] MEDS ORDERED: QUERCETIN 500 MG PO SCH (09:00)
[2022-05-04] MEDS ORDERED: FEXOFENADINE HCL 180 MG TAB PO SCH (09:00)
[2022-05-04] MEDS ORDERED: CHOLECALCIFEROL 1,000 UNITS 25 MCG TAB PO SCH (09:00)
[2022-05-04] MEDS ORDERED: ASPIRIN 81 MG ECTAB PO SCH (09:00)
[2022-05-04] MEDS ORDERED: CLOPIDOGREL BISULFATE 75 MG TAB PO SCH (09:00)
[2022-05-04] MEDS ORDERED: NICOTINE 14 MG/24 HR PATCH TD SCH (09:00)
== END 2022-05-04 10:28 | disposition home or self-care (01) | DRG 36 ==
LOC: ASU 06:20 → 1E 07:41
PROC: EV.TCAR (2022-05-03 08:00)

== ENCOUNTER 2025-05-18 13:42 | Inpatient (IN) ==
[2025-05-18 14:36] LABS: Hematocrit (blood only) 26.3 % (42.0-52.0); Hemoglobin 9.0 g/dL (14.0-18.0); Immature Granulocytes # (auto) 0.03 K/uL (0.01-0.20); Immature Granulocytes % (auto) 0.4 %; Mean Corpuscular Hemoglobin 30.1 pg (25.0-34.0); Mean Corpuscular Volume 88.0 fL (80.0-100.0); Platelet Count 279 K/uL (130-400); RDW Standard Deviation 42.4 fL (36.4-46.3); Red Blood Count 2.99 M/uL (4.70-6.10); White Blood Count 7.93 K/ul (4.8-10.8)
[2025-05-18 14:53] LABS: Alanine Aminotransferase 16.0 U/L (7-52); Albumin Globulin Ratio 1.5 (0.9-2); Albumin Level 4.0 gm/dl (3.4-5.0); Alkaline Phosphatase 67.0 U/L (34-104); Anion Gap 5.0 (3-11); Bilirubin,Total 0.2 mg/dl (0.2-1.0); Blood Urea Nitrogen 15.0 mg/dl (6-23); Calcium 9.0 mg/dl (8.6-10.3); Carbon Dioxide 28.0 mmol/L (21-32); Chloride 99.0 mmol/L (98-107); Creatinine Clr Calc Pharmacy 83.2 ml/min; Globulin 2.6 gm/dl (2.5-4.0); Glucose 161.0 mg/dl (70-99(Fasting)); Lipase 37.0 U/L (11-82); Potassium 3.8 mmol/L (3.5-5.1); Sodium 132.0 mmol/L (136-145); Total Protein 6.6 gm/dl (6.0-8.3)
--- NOTE | 2025-05-18 14:59 | Emergency Department Note ---
Impression & Plan Chest pain, COPD (chronic obstructive pulmonary disease), SOB (shortness of breath), Rhinovirus infection ED Provider Note CHIEF COMPLAINT: Shortness of breath, chest pain HISTORY OF PRESENTING ILLNESS: This 69-year-old male patient presents to the emergency department with his family for evaluation of shortness of breath and chest pain. The symptoms radiate into his left arm to his left hand. The patient has a history of COPD. His tested positive for COVID 1 week ago. The patient has been having a cough, runny nose, nasal congestion, and sore throat for the past week. The patient took a home COVID test that was negative. The chest pain started early this morning. The chest pain started more on the right side, but then moved to the left side going down the left arm. He has been taking his Breo and albuterol without improvement of the symptoms. He is on Plavix. Currently he is chest pain-free. The symptoms only lasted for 15 to 20 minutes per patient. He denies any numbness or tingling into the arms. He did have an KS at 23 years old with stent placement. The patient also has a history of CVA as well as brain aneurysm. He is currently on a Plavix and aspirin. REVIEW OF SYSTEMS: See HPI for pertinent positives and pertinent negatives. ALLERGIES: Amoxicillin MEDICATIONS: See below PAST MEDICAL HISTORY: See below PHYSICAL EXAM: Vital Signs: Vitals are noted on the nurse's note and reviewed by myself. GENERAL: Non toxic in appearance and in no acute distress. SKIN: Capillary reflex less than 2 seconds. HEAD: Normocephalic, atraumatic. EARS: Bilateral external auditory canals clear without tragus tenderness. Bilateral tympanic membranes pearly sanchez without erythema or effusion. No mastoid tenderness bilaterally. EYES: Pupils equal round and reactive to light and accommodation. Conjunctivae without injection, sclerae without icterus. Extraocular movements intact. NOSE: Patent, turbinates inflamed with no discharge. No sinus tenderness. MOUTH: Mucous membranes moist. Airway patent, uvula midline. Pharynx is not erythematous and not edematous without exudate. Pharynx without postnasal drip. No evidence for peritonsillar abscess. NECK: Supple without nuchal rigidity. No lymphadenopathy. HEART: Regular rate and rhythm without murmurs gallops or rubs. LUNGS: Clear to auscultation bilaterally with wheezing throughout, but no rales or rhonchi. No accessory muscle use or retractions. ABDOMEN: Positive bowel sounds x 4. Normal tympanic percussion. Soft, nontender to palpation. No masses or hepatosplenomegaly. No guarding, rigidity, or rebound tenderness. No CVA tenderness. No focal RLQ or LLQ tenderness. NEURO: Patient was alert and oriented. DIFFERENTIAL DIAGNOSIS: Differential diagnosis includes viral syndrome, RSV, Influenza, COVID, strep throat, pharyngitis/tonsillitis, mononucleosis, retropharyngeal abscess, peritonsillar abscess, otitis media, otitis externa, sinusitis, bronchitis, pneumonia, angina, KS, pericarditis, myocarditis, aortic dissection, pleurisy, pneumothorax, PE, pneumomediastinum, esophagitis, esophageal spasm, GERD, perforated esophagus, perforated duodenal/gastric ulcer, pancreatitis, cholecystitis, costochondritis, musculoskeletal, bronchitis, URI, or others. ED COURSE AND MEDICAL DECISION MAKING: MEDICATIONS GIVEN: 500 mL normal saline solution bolus. DuoNeb treatment. Nitroglycerin 0.4 mg sublingual. MONITOR: Continuous rail layer: Order was placed for continuous rail layer. Patient was placed on the rail layer and continuous pulse ox. Patient was noted to be in sinus tachycardia at an initial rate of 104 bpm per my interpretation. EKG: EKG was interpreted by myself as sinus tachycardia at 115 bpm with no acute ST or T wave changes. Repeat EKG with chest pain shows normal sinus rhythm at 98 bpm, but no acute ST or T wave changes. INTERPRETATION OF LABS: I interpreted the labs with full lab results as below in the lab section of this note. Laboratory results pertinent to the emergent complaint are discussed in the MDM section below. The patient was advised to follow up with their PCP and/or specialist(s) for further outpatient monitoring and management of any abnormal results. INTERPRETATION OF IMAGING: Imaging studies were interpreted by myself and read by radiology as per the imaging section of this note. The patient was advised to follow up with their PCP and/or specialist(s) for further outpatient management of any non-emergent abnormal findings. Chest x-ray negative for acute cardiopulmonary etiology. CTA of the chest with IV contrast showed no evidence for PE, pneumonia, or other acute abnormalities. There was emphysematous type scarring changes. CONSULTATIONS: On-call hospitalist MDM SUMMARY: I examined the patient. The patient has had URI symptoms for the past week. His tested positive for COVID, but he had negative COVID testing at home. The patient then started with chest pain this morning. He states that it only lasted for 15 to 20 minutes and then resolved. However, he has had continued shortness of breath. Due to his previous cardiac history he became concerned and presented for evaluation. The patient was tachycardic upon arrival in triage and was also mildly tachycardic at the time of my exam. However, he was afebrile and normal blood pressure. An IV lock was placed and labs were drawn. He was given 500 mL normal saline solution bolus. He was given a DuoNeb treatment with some improvement of his shortness of breath. The patient's initial EKG showed sinus tachycardia without ischemic changes. The patient had been chest pain-free at initial evaluation. However, during the patient's ER visit he did develop chest pain. EKG at the time of chest pain showed normal sinus rhythm at 98 bpm with no acute ST or T wave changes or evidence for ischemia. The patient was given nitroglycerin 0.4 mg sublingual with resolution of the chest pain at that time. White blood cell count normal at 7.93. Hemoglobin low at 9.0. Platelet count normal at 279. Coags were normal. Sodium low at 132 and glucose 161, but CMP otherwise normal. Initial high-sensitivity troponin 3.9 with repeat of 7.6. Respiratory BioFire positive for rhinovirus/enterovirus. Chest x-ray negative for acute cardiopulmonary etiology. Due to the patient's continued mild tachycardia as well as shortness of breath with the chest pain, advanced imaging was performed. CTA of the chest with IV contrast showed no evidence for PE, pneumonia, or other acute abnormalities. There was emphysematous type scarring changes. While the patient's symptoms may be secondary to the rhinovirus/enterovirus infection and a COPD exacerbation, the patient did have recurrent chest pain that was relieved with nitroglycerin in the ER. I had a meaningful discussion about this patient with Dr. Li who agrees with my assessment and the treatment plan. Given the patient's cardiac history and symptoms, we feel the patient would benefit from admission for further evaluation and treatment. I spoke with the on-call hospitalist who agreed to admit the patient for further management. Please refer to their dictation for further details. The patient's care was transferred in stable condition. DIAGNOSIS: Chest pain Shortness of breath Rhinovirus/enterovirus COPD Past Med/Surg History Problem List (Updated 05/19/25 @ 12:02 by Sailaja Augustin PA-C) SOB (shortness of breath) (Acute) Anemia Rhinovirus infection (Acute) Chest pain (Acute) Hand dermatitis Encounter for pre-operative examination COPD (chronic obstructive pulmonary disease) (Acute) Essential hypertriglyceridemia Dyslipidemia Smoker GERD (gastroesophageal reflux disease) TIA (transient ischemic attack) (Acute) Carotid stenosis, symptomatic w/o infarct (Acute) Cerebral aneurysm without rupture (Acute) Carotid stenosis 05-03-22 - S/P Left Transcarotid Artery Revascularization(Left) with Dr Tmaeka MCCOY (amaurosis fugax) Presence of internal carotid stent 04/2022 [facility] Medical History Poison lina dermatitis Colon cancer screening History of [place] spotted fever DDD (degenerative disc disease) Bulging of cervical intervertebral disc Lumbar herniated disc Osteoarthritis History of TIA (transient ischemic attack) Brain aneurysm History of myocardial infarction Emphysema of lung Surgical History History of surgery for cerebral aneurysm History of colonoscopy Hx of brain surgery Hx of tooth extraction Hx of eye surgery History of wisdom tooth extraction S/P tonsillectomy H/O hernia repair Family History Mother Ovarian cancer Other No family history of adverse response to anesthesia Denies family history of Colon cancer Prostate cancer Myocardial infarction Breast cancer Social History Smoking Status: Current every day smoker Tobacco Type: Cigarettes Age Started Using Tobacco: 17; packs per day: 0.5; Cigarettes Per Day: 5 per day; Second Hand Exposure: No; Do You Dip or Chew Tobacco: No; Tobacco Cessation Education Requested by Patient: No Hx Alcohol Use: No Hx Substance Use: No Preferred Language: [place] Communication Ability: Effective Visual Impairment: Limited Hearing Ability: Normal Material Stress Tester Required: No Beliefs That Will Affect Care: None marital status: Current Living Situation: Spouse current occupational status: employed 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 How many Children do You have: 4 Other Information That Helps Us Care for You: No Feels Safe at Home: Yes Safety Concerns: Feels Safe At This Time Childhood Exposure to Second-Hand Smoke: Yes Diet: low carbohydrate, low salt and regular caffeine: Yes during the past year weight has: remained stable Dental Care, Regularly: Yes Physical Activity Frequency: 3-4 Times per Week Seatbelt Use: always Sunscreen Use: No Do you think of yourself as: straight/heterosexual Gender Identity: Male Assistive Devices: Glasses Allergies Allergies Allergy/AdvReac Type Severity Reaction Status Date / Time amoxicillin AdvReac Mild anxiety Verified 01/22/25 08:25 Home Meds Home Medications Medication Instructions Recorded Confirmed ascorbic acid (vitamin C) 250 mg 250 mg PO UD 01/20/22 05/18/25 tablet aspirin 81 mg tablet,delayed 81 mg PO QAM 01/20/22 05/18/25 release cholecalciferol (vitamin D3) 25 25 mcg PO UD 01/20/22 05/18/25 mcg (1,000 unit) capsule atorvastatin 40 mg tablet (Lipitor) 40 mg PO QAM 04/28/22 05/18/25 clopidogrel 75 mg tablet (Plavix) 75 mg PO QAM 04/28/22 05/18/25 sildenafil 50 mg tablet (Viagra) 25 mg PO DAILY PRN Erectile 04/28/22 05/18/25 Dysfunction ezetimibe 10 mg tablet 10 mg PO DAILY 08/20/24 05/18/25 loratadine 10 mg tablet 10 mg PO DAILY 08/20/24 05/18/25 multivitamin 1 tab PO DAILY 08/20/24 05/18/25 losartan 25 mg tablet 50 mg PO DAILY 01/22/25 05/18/25 Previous Rx's Medication Instructions Recorded mometasone 0.1 % topical ointment 1 applic topical BID PRN skin 05/22/24 irritation #45 grams albuterol sulfate 90 mcg/actuation 2 puff inhalation Q6H PRN 03/05/25 aerosol inhaler (Ventolin HFA) Shortness Of Breath #8.5 grams fluticasone furoate 100 1 inh inhalation DAILY #60 ea 03/05/25 mcg-vilanterol 25 mcg/dose inhalation powder (Breo Ellipta) Results & Data (ED) Vital Signs Vital Signs - 24 hr 05/18/25 13:43 05/18/25 13:55 05/18/25 14:03 Temperature 36.8 C Temperature Source Oral Pulse Rate 116 H Pulse Rate [Apical] 76 Pulse Rate from SpO2 Sensor Pulse Rhythm [Apical] Regular Pulse Strength [Apical] Normal Respiratory Rate 18 24 Respiratory Effort / Characteristics Non-Labored Spontaneous Non-Labored Spontaneous Respiratory Depth Normal Normal Respiratory Pattern Regular Blood Pressure 116/60 Blood Pressure [Right Arm] 135/86 Blood Pressure Mean 78 Blood Pressure Mean [Right Arm] 102 Blood Pressure Position Sitting Pulse Oximetry 95 95 95 Oxygen Delivery Method Room Air Room Air Room Air Sepsis Recent Fever Within 48 Hours No Sepsis New/Unexplained Change in Mental Status No Sepsis Action Taken by Nursing No Action Required 05/18/25 16:19 05/18/25 16:19 05/18/25 16:19 Temperature Temperature Source Pulse Rate Pulse Rate [Apical] Pulse Rate from SpO2 Sensor Pulse Rhythm [Apical] Pulse Strength [Apical] Respiratory Rate Respiratory Effort / Characteristics Respiratory Depth Respiratory Pattern Blood Pressure 120/79 120/79 120/79 Blood Pressure [Right Arm] Blood Pressure Mean 95 95 95 Blood Pressure Mean [Right Arm] Blood Pressure Position Pulse Oximetry Oxygen Delivery Method Sepsis Recent Fever Within 48 Hours Sepsis New/Unexplained Change in Mental Status Sepsis Action Taken by Nursing 05/18/25 17:00 05/18/25 19:00 Temperature Temperature Source Pulse Rate 90 Pulse Rate [Apical] 90 Pulse Rate from SpO2 Sensor 90 Pulse Rhythm [Apical] Regular Pulse Strength [Apical] Normal Respiratory Rate 16 20 Respiratory Effort / Characteristics Non-Labored Spontaneous Respiratory Depth Normal Respiratory Pattern Blood Pressure Blood Pressure [Right Arm] 120/79 Blood Pressure Mean Blood Pressure Mean [Right Arm] 92 Blood Pressure Position Pulse Oximetry 94 100 Oxygen Delivery Method Room Air Room Air Sepsis Recent Fever Within 48 Hours Sepsis New/Unexplained Change in Mental Status Sepsis Action Taken by Nursing Laboratory Data 05/19/25 07:27 05/19/25 07:27 Lab Results 05/18/25 05/18/25 05/18/25 Range/Units 14:16 16:20 16:35 WBC 7.93 (4.8-10.8) K/ul RBC 2.99 L (4.70-6.10) M/uL Hgb 9.0 L (14.0-18.0) g/dL Hct 26.3 L (42.0-52.0) % MCV 88.0 (80.0-100.0) fL MCH 30.1 (25.0-34.0) pg MCHC 34.2 (32.0-36.0) g/dL RDW Std Deviation 42.4 (36.4-46.3) fL RDW Coeff of [place] 13.4 (11.5-14.5) % Plt Count 279 (130-400) K/uL MPV 9.0 L (9.4-12.4) fL Immature Gran % (Auto) 0.4 % Neut % (Auto) 65.8 % Lymph % (Auto) 20.7 % [place] % (Auto) 10.2 % Eos % (Auto) 2.3 % Baso % (Auto) 0.6 % Reticulocyte % (Auto) 3.81 H (0.50-2.00) % Neut # (Auto) 5.22 (1.40-6.50) K/uL Lymph # (Auto) 1.64 (1.20-3.40) K/uL [place] # (Auto) 0.81 H (0.11-0.59) K/uL Eos # (Auto) 0.18 (0.00-0.50) K/uL Baso # (Auto) 0.05 (0.00-0.20) K/uL Reticulocyte # 0.110 H (0.020-0.100) 10^6/uL Immature Gran # (Auto) 0.03 (0.01-0.20) K/uL PT 10.8 (9.0-12.0) Seconds INR 1.0 (0.9-1.1) APTT 29 (21-31) Seconds PTT Ratio 1.1 Sodium 132 L (136-145) mmol/L Potassium 3.8 (3.5-5.1) mmol/L Chloride 99 (98-107) mmol/L Carbon Dioxide 28 (21-32) mmol/L Anion Gap 5 (3-11) BUN 15 (6-23) mg/dl Creatinine 0.85 (0.6-1.4) mg/dl Est Cr Clr Drug Dosing 83.2 ml/min eGFR 94.65 BUN/Creatinine Ratio 17.6 (10-20) Glucose 161 H (70-99(Fasting)) mg/dl Calcium 9.0 (8.6-10.3) mg/dl Iron 32 L (35-175) mcg/dl TIBC 416 (250-450) mcg/dl Transferrin 297 (200-360) mg/dl Transferrin % Sat 8 L (20-50) % Total Bilirubin 0.2 (0.2-1.0) mg/dl AST 18 (13-39) U/L ALT 16 (7-52) U/L Alkaline Phosphatase 67 (34-104) U/L Troponin I High Sens 3.9 7.6 (0-20) pg/ml Total Protein 6.6 (6.0-8.3) gm/dl Albumin 4.0 (3.4-5.0) gm/dl Globulin 2.6 (2.5-4.0) gm/dl Albumin/Globulin Ratio 1.5 (0.9-2) Lipase 37 (11-82) U/L Vitamin B12 242 (180-914) pg/ml Folate > 22.30 (>5.38) ng/ml Adenovirus (PCR) Not Detected (NotDetected) B. pertussis DNA (PCR) Not Detected (NotDetected) B.parapertussis DNA PCR Not Detected (NotDetected) C. pneumoniae DNA (PCR) Not Detected (NotDetected) Coronavirus OC43 (PCR) Not Detected (NotDetected) Coronavirus HKU1 (PCR) Not Detected (NotDetected) Coronavirus 229E (PCR) Not Detected (NotDetected) SARS-CoV-2 (PCR) Not Detected (NotDetected) Coronavirus NL63 (PCR) Not Detected (NotDetected) Human Metapneumovir PCR Not Detected (NotDetected) Influenza Type A (PCR) Not Detected (NotDetected) Influenza Type B (PCR) Not Detected (NotDetected) M. pneumoniae (PCR) Not Detected (NotDetected) Parainfluenza 1 (PCR) Not Detected (NotDetected) Parainfluenza 2 (PCR) Not Detected (NotDetected) Parainfluenza 3 (PCR) Not Detected (NotDetected) Parainfluenza 4 (PCR) Not Detected (NotDetected) RSV (PCR) Not Detected (NotDetected) Entero/Rhino (PCR) DETECTED A (NotDetected) Administered Medications Albuterol (Albuterol Hfa 8 Gm Inhaler) 2 puffs INH Q6H PRN PRN Reason: Shortness Of Breath Stop: 06/17/25 20:51 Last Admin: 05/18/25 22:27 Dose: 2 puffs Documented By: RAGHAV Aspirin (Aspirin 81 Mg Ectab) 81 mg PO QAM [facility] Stop: 06/18/25 08:59 Last Admin: 05/19/25 09:08 Dose: 81 mg Documented By: AM Atorvastatin Calcium (Atorvastatin 40 Mg Tab) 40 mg PO QAM [facility] Stop: 06/18/25 08:59 Last Admin: 05/19/25 09:08 Dose: 40 mg Documented By: AM Clopidogrel Bisulfate (Clopidogrel Bisulfate 75 Mg Tab) 75 mg PO QAM [facility] Stop: 06/18/25 08:59 Last Admin: 05/19/25 09:07 Dose: 75 mg Documented By: AM Ezetimibe (Ezetimibe 10 Mg Tab) 10 mg PO DAILY [facility] Stop: 06/18/25 08:59 Last Admin: 05/19/25 09:10 Dose: 10 mg Documented By: AM Fluticasone/Vilanterol (Fluticasone/Vilanterol 100/25mcg 14 Puffs/Inhaler) 1 puffs INH DAILY [facility] Stop: 06/18/25 08:59 Last Admin: 05/19/25 09:07 Dose: 1 puffs Documented By: AM Pantoprazole Sodium (Protonix) 40 mg in 10 mls @ 5 mls/min IV DAILY [facility] Stop: 06/18/25 08:59 Last Admin: 05/19/25 10:30 Dose: 5 mls/min Documented By: AM Loratadine (Loratadine 10 Mg Tab) 10 mg PO DAILY [facility] Stop: 06/18/25 08:59 Last Admin: 05/19/25 09:08 Dose: 10 mg Documented By: AM Losartan Potassium (Losartan Potassium 50 Mg Tab) 50 mg PO DAILY [facility] Stop: 06/18/25 08:59 Last Admin: 05/19/25 09:09 Dose: 50 mg Documented By: AM Miscellaneous (Remove Nicoderm Patch) 1 each N/A DAILY@0859 [facility] Stop: 06/18/25 08:58 Last Admin: 05/19/25 09:11 Dose: 1 each Documented By: AM Multivitamins (Multivitamin Tab) 1 tab PO QAM [facility] Stop: 06/18/25 08:59 Last Admin: 05/19/25 09:11 Dose: 1 tab Documented By: AM Nicotine (Nicotine 21 Mg/24 Hr Tdsy) 1 patch TD QAM [facility] Stop: 06/17/25 21:49 Last Admin: 05/19/25 09:12 Dose: 1 patch Documented By: Admin: 05/18/25 22:09 Dose: 1 patch Documented By: GDH Discontinued Medications Albuterol (Albut/Ipratrop 3mg/0.5mg Neb 3 Ml Vial) 3 ml NEB NOW STA; Protocol Stop: 05/18/25 15:19 Last Admin: 05/18/25 15:40 Dose: 3 ml Documented By: dayami Sodium Chloride (Nss) 500 mls @ 999 mls/hr IV .Q31M ONE Stop: 05/18/25 15:48 Last Infusion: 05/18/25 16:24 Dose: Infused Documented By: nrs Admin: 05/18/25 15:40 Dose: 999 mls/hr Documented By: dayami Pantoprazole Sodium (Protonix) 40 mg in 10 mls @ 5 mls/min IV NOW ONE Stop: 05/18/25 19:46 Last Admin: 05/18/25 20:03 Dose: 5 mls/min Documented By: DANYA Ioversol (Optiray 320 100ml) 115 ml IV ONCE ONE Stop: 05/18/25 15:54 Last Admin: 05/18/25 15:54 Dose: 115 ml Documented By: LUIS Nitroglycerin (Nitroglycerin Sl 0.4 Mg/Tab Tab) 0.4 mg SL NOW STA Stop: 05/18/25 16:19 Last Admin: 05/18/25 16:23 Dose: 0.4 mg Documented By: nrs Discharge Plan Visit Data Chief Complaint: Shortness of Breath/Dyspnea Stated Complaint: SOB, COPD, TIGHT CHEST, DOWN LT HAND ED Provider: [facility] Li ED Midlevel Provider: Sailaja Augustin Discharge Problem: Chest pain, COPD (chronic obstructive pulmonary disease), SOB (shortness of breath), Rhinovirus infection Patient Disposition: Admitted As Inpatient Condition: Fair Discharge Instructions Interventions: ED Discharge Assessment Last Done: 05/18/25 20:37 Discharge Problem: Chest pain Qualifiers: Chest pain type: unspecified Qualified Code(s): R07.9 - Chest pain, unspecified COPD (chronic obstructive pulmonary disease) Qualifiers: COPD type: unspecified COPD Qualified Code(s): J44.9 - Chronic obstructive pulmonary disease, unspecified
--- NOTE | 2025-05-18 15:28 | XRay Report ---
COMPARISON: 08/20/2024 FINDINGS: HEART: Normal in size. LUNGS: No focal consolidation, pleural effusion, or vascular congestion. MEEDIASTINUM: Unremarkable. BONES: Intact. OTHER: Unremarkable. IMPRESSION: No acute disease. Electronically signed by Don Reyez 05-18-2025 3:24 PM
[2025-05-18 15:37] LABS: INR 1.0 (0.9-1.1); Partial Thromboplastin Time 29 Seconds (21-31); Prothrombin Time 10.8 Seconds (9.0-12.0)
[2025-05-18] MEDS: SODIUM CHLORIDE 0.9% 500 ML IV ONE (15:40)
[2025-05-18] MEDS: ALBUT/IPRATROP 3MG/0.5MG NEB 3 ML VIAL NEB STA (15:40)
[2025-05-18] MEDS: OPTIRAY 320 100ml IV ONE (15:54)
[2025-05-18] MEDS: NITROGLYCERIN SL 0.4 MG/TAB TAB SL STA (16:23)
--- NOTE | 2025-05-18 17:06 | CT Scan Report ---
INDICATION: Chest pain tachycardia COMPARISON: 02/23/2023 TECHNIQUE: CT images of the chest were obtained. 3D CT angiogram was generated from the axial data set. Dose reduction according to patient size and/or automated exposure control techniques have been utilized for this exam. MIP (Maximum Intensity Pixel) images were utilized. FINDINGS: AXIAL IMAGES: LUNGS: No focal consolidations. No worrisome pulmonary nodules. Stable 2-3 mm pulmonary nodule left lower lobe. Hyperinflated lungs. Several bulla. PLEURA: There is no pleural effusion. MEDIASTINUM/DELMER: No significant lymphadenopathy. CARDIAC: The heart is normal in size. AORTA: No aneurysm. Atherosclerotic changes. LIMITED ABDOMEN:Unremarkable right adrenal gland. There is 1 cm low-attenuation left adrenal gland nodule, statistically representing an adenoma. BONES: Bony thorax is intact. OTHER: Unremarkable. CTA: No evidence of pulmonary embolism. IMPRESSION: No CT evidence of pulmonary embolism. No focal consolidations. Emphysematous type scarring changes. Electronically signed by Don Reyez 05-18-2025 5:05 PM
[2025-05-18 17:36] LABS: Chlamydia pneumoniae PCR Not Detected (NotDetected); Coronavirus 229E PCR Not Detected (NotDetected); Coronavirus CoV-2 (COVID19)PCR Not Detected (NotDetected); Coronavirus HKU1 PCR Not Detected (NotDetected); Coronavirus NL63 PCR Not Detected (NotDetected); Coronavirus OC43PCR Not Detected (NotDetected); Human Metapneumovirus PCR Not Detected (NotDetected); Parainfluenza Virus 1 PCR Not Detected (NotDetected); Parainfluenza Virus 2 PCR Not Detected (NotDetected); Parainfluenza Virus 3 PCR Not Detected (NotDetected); Parainfluenza Virus 4 PCR Not Detected (NotDetected); Respiratory Syncytial VirusPCR Not Detected (NotDetected); Rhinovirus/Enterovirus PCR DETECTED (NotDetected)
--- NOTE | 2025-05-18 17:56 | Emergency Department Note ---
ED Visit Note I had a meaningful discussion with the PA regarding patient. Though I did not see the patient face to face, I personally approved and/or made the documented management plan and acknowledge risk and complications. .
[2025-05-18 19:49] LABS: Reticulocytes # 0.110 10^6/uL (0.020-0.100)
--- NOTE | 2025-05-18 19:54 | History & Physical Report ---
Date of Service May 18, 2025 Assessment & Plan (1) Chest pain: (2) Rhinovirus infection: (3) COPD (chronic obstructive pulmonary disease): (4) Anemia: Plan The patient is a 69-year-old male with past medical history including COPD, essential hypertriglyceridemia, GERD, TIA, carotid stenosis, cerebral aneurysm without rupture, amaurosis fugax, presence of internal carotid stent, and hypertension. He presents to the emergency department with progressively worsening shortness of breath, and intermittent chest pain over the past several days. He reports occasional radiation of discomfort into his left arm and left hand. His did test positive for COVID 1 week ago, and he was concerned that he may have contracted COVID. [facility] [employer] testing in the emergency department this evening is negative for COVID, but does show positivity for rhinovirus. He describes her chest pain as from right side across his sternum to the left side. May occur with or without activity. At the time of evaluation the emergency department he has no chest discomfort. Workup in ED included CT angiography that was negative for PE, but did show emphysema. From the ED patient received the following: Normal saline 500 mL bolus, DuoNeb treatment, nitroglycerin sublingual. He then referred for evaluation for admission to [facility]. Chest pain/shortness of breath- Both symptoms have improved while in the emergency department, prior to my assessment. Differential including but not limited to: Rhinovirus infection, COPD exacerbation, cardiac, anemia. The patient will be admitted to telemetry for serial cardiac enzymes, serial EKG's, cardiac rhythm monitoring and echocardiogram Most recent echocardiogram from 04/20/2022 with ejection fraction 60-65% EKG shows normal sinus rhythm at 98, with nonspecific ST-T changes. CT angiography negative for PE, positive for emphysema Continue Breo elliptica, and Ventolin HFA Carotid stenosis status post left TCAR 2021/hypertension- Continue aspirin and Plavix for now, if patient is heme positive and or if hemoglobin drops further, both will be held. Continue losartan with hold parameters Anemia- Hemoglobin has decreased from 13.5-9.0. Hemoccult all stools. Check iron studies, B12, folate, reticulocyte count. Repeat laboratories in a.m. Patient denies any loss of blood in urine or stool Pantoprazole 40 mg IV now and then every morning Rhinovirus infection- Suspect this is the most likely cause of his symptoms, as they have had occurred primarily this week. Tylenol 650 mg by mouth every 6 hours as needed for mild pain or fever Inhalers as above Droplet precautions Hyperlipidemia- Continue atorvastatin Check a fasting lipid panel Hyperglycemia- Glucose 161 on admission Check hemoglobin A1c History of Present Illness Primary Care Provider: Pawel Greene DO The patient is a 69-year-old male with past medical history including COPD, essential hypertriglyceridemia, GERD, TIA, carotid stenosis, cerebral aneurysm without rupture, amaurosis fugax, presence of internal carotid stent, and hypertension. He presents to the emergency department with progressively worsening shortness of breath, and intermittent chest pain over the past several days. He reports occasional radiation of discomfort into his left arm and left hand. His did test positive for COVID 1 week ago, and he was concerned that he may have contracted COVID. Res[facility] [employer] testing in the emergency department this evening is negative for COVID, but does show positivity for rhinovirus. He describes her chest pain as from right side across his sternum to the left side. May occur with or without activity. At the time of evaluation the emergency department he has no chest discomfort. Workup in ED included CT angiography that was negative for PE, but did show emphysema. From the ED patient received the following: Normal saline 500 mL bolus, DuoNeb treatment, nitroglycerin sublingual. He then referred for evaluation for admission to [facility] Allergies Allergy/AdvReac Type Severity Reaction Status Date / Time amoxicillin AdvReac Mild anxiety Verified 01/22/25 08:25 Home Medications Medication Instructions Recorded Confirmed Type ascorbic acid (vitamin C) 250 mg 250 mg PO UD 01/20/22 05/18/25 History tablet aspirin 81 mg tablet,delayed 81 mg PO QAM 01/20/22 05/18/25 History release cholecalciferol (vitamin D3) 25 25 mcg PO UD 01/20/22 05/18/25 History mcg (1,000 unit) capsule atorvastatin 40 mg tablet (Lipitor) 40 mg PO QAM 04/28/22 05/18/25 History clopidogrel 75 mg tablet (Plavix) 75 mg PO QAM 04/28/22 05/18/25 History sildenafil 50 mg tablet (Viagra) 25 mg PO DAILY PRN Erectile 04/28/22 05/18/25 History Dysfunction mometasone 0.1 % topical ointment 1 applic topical BID PRN skin 05/22/24 05/18/25 Rx irritation #45 grams ezetimibe 10 mg tablet 10 mg PO DAILY 08/20/24 05/18/25 History loratadine 10 mg tablet 10 mg PO DAILY 08/20/24 05/18/25 History multivitamin 1 tab PO DAILY 08/20/24 05/18/25 History losartan 25 mg tablet 50 mg PO DAILY 01/22/25 05/18/25 History albuterol sulfate 90 mcg/actuation 2 puff inhalation Q6H PRN 03/05/25 05/18/25 Rx aerosol inhaler (Ventolin HFA) Shortness Of Breath #8.5 grams fluticasone furoate 100 1 inh inhalation DAILY #60 ea 03/05/25 05/18/25 Rx mcg-vilanterol 25 mcg/dose inhalation powder (Breo Ellipta) Past Med/Surg History Problem List (Updated 05/19/25 @ 00:50 by Carlos Blanchard MD) Anemia Rhinovirus infection Chest pain Hand dermatitis Encounter for pre-operative examination COPD (chronic obstructive pulmonary disease) Essential hypertriglyceridemia Dyslipidemia Smoker GERD (gastroesophageal reflux disease) TIA (transient ischemic attack) (Acute) Carotid stenosis, symptomatic w/o infarct (Acute) Cerebral aneurysm without rupture (Acute) Carotid stenosis 05-03-22 - S/P Left Transcarotid Artery Revascularization(Left) with Dr English AF (amaurosis fugax) Presence of internal carotid stent 04/2022 [facility] Medical History Poison lina dermatitis Colon cancer screening History of [place] spotted fever DDD (degenerative disc disease) Bulging of cervical intervertebral disc Lumbar herniated disc Osteoarthritis History of TIA (transient ischemic attack) Brain aneurysm History of myocardial infarction Emphysema of lung Surgical History History of surgery for cerebral aneurysm History of colonoscopy Hx of brain surgery Hx of tooth extraction Hx of eye surgery History of wisdom tooth extraction S/P tonsillectomy H/O hernia repair Family History Mother Ovarian cancer Other No family history of adverse response to anesthesia Denies family history of Colon cancer Prostate cancer Myocardial infarction Breast cancer Social History Smoking Status: Current every day smoker Tobacco Type: Cigarettes Age Started Using Tobacco: 17; packs per day: 0.5; Cigarettes Per Day: 5 per day; Second Hand Exposure: No; Do You Dip or Chew Tobacco: No; Tobacco Cessation Education Requested by Patient: No Hx Alcohol Use: No Hx Substance Use: No Preferred Language: Greek Communication Ability: Effective Visual Impairment: Limited Hearing Ability: Normal Cost Reduction Engineer Required: No Beliefs That Will Affect Care: None marital status: Current Living Situation: Spouse current occupational status: employed 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 How many Children do You have: 4 Other Information That Helps Us Care for You: No Feels Safe at Home: Yes Safety Concerns: Feels Safe At This Time Childhood Exposure to Second-Hand Smoke: Yes Diet: low carbohydrate, low salt and regular caffeine: Yes during the past year weight has: remained stable Dental Care, Regularly: Yes Physical Activity Frequency: 3-4 Times per Week Seatbelt Use: always Sunscreen Use: No Do you think of yourself as: straight/heterosexual Gender Identity: Male Assistive Devices: Glasses Review of Systems Review of Systems: The patient denies palpitations, lower extremity swelling, sore throat, fevers, chills, sweats, nausea, vomiting, diarrhea , constipation, abdominal pain, pelvic pain, blood in urine or stool, dysuria, urinary frequency or urgency, memory loss, loss of consciousness, rash, abnormal bruising or bleeding, focal weakness, numbness or tingling in arms or legs, generalized arthralgias or myalgias, back or neck pain, or night sweats. The review of systems is otherwise negative other than for that already noted above, and at least 10 systems have been reviewed. Physical Exam Physical Exam: The patient is awake, alert and oriented 3, well developed and well nourished, normocephalic and atraumatic, lying in bed and in no acute distress. HEENT--PERRL, EOMI, mucous membranes and oropharynx dry. Neck--supple. No JVD. No bruits. Thyroid normal, trachea midline, no adenopathy. Heart--normal S1 and S2. No murmurs, rubs or gallops. Lungs--clear bilaterally, no respiratory distress, no accessory muscle use. Abdomen--normal bowel sounds and soft. Nontender. Nondistended, no hernias or masses, no organomegaly. Extremities--no cyanosis or clubbing. No edema. There are good distal pulses b/l. Dermatologic--normal skin turgor, normal color, no abnormal lymph nodes, no rash. Neurologic--cranial nerves II through XII grossly intact. Rheumatologic--normal range of motion. Psychiatric--normal affect. Results & Data Results & Data Vital Signs (Past 12 Hours) Vital Signs Temp Pulse Pulse Resp BP BP Pulse Ox 05/18/25 19:00 90 20 100 05/18/25 17:00 90 16 120/79 94 05/18/25 16:19 120/79 05/18/25 16:19 120/79 05/18/25 16:19 120/79 05/18/25 14:03 95 05/18/25 13:55 36.8 C 116 H 24 116/60 95 05/18/25 13:43 76 18 135/86 95 O2 Del Method 05/18/25 19:00 Room Air 05/18/25 17:00 Room Air 05/18/25 16:19 05/18/25 16:19 05/18/25 16:19 05/18/25 14:03 Room Air 05/18/25 13:55 Room Air 05/18/25 13:43 Room Air Laboratory Results Laboratory Results WBC 7.93 K/ul (4.8-10.8) 05/18/25 14:16 RBC 2.99 M/uL (4.70-6.10) L 05/18/25 14:16 Hgb 9.0 g/dL (14.0-18.0) L 05/18/25 14:16 Hct 26.3 % (42.0-52.0) L 05/18/25 14:16 MCV 88.0 fL (80.0-100.0) 05/18/25 14:16 MCH 30.1 pg (25.0-34.0) 05/18/25 14:16 MCHC 34.2 g/dL (32.0-36.0) 05/18/25 14:16 RDW Std Deviation 42.4 fL (36.4-46.3) 05/18/25 14:16 RDW Coeff of [place] 13.4 % (11.5-14.5) 05/18/25 14:16 Plt Count 279 K/uL (130-400) 05/18/25 14:16 MPV 9.0 fL (9.4-12.4) L 05/18/25 14:16 Immature Gran % (Auto) 0.4 % 05/18/25 14:16 Neut % (Auto) 65.8 % 05/18/25 14:16 Lymph % (Auto) 20.7 % 05/18/25 14:16 [place] % (Auto) 10.2 % 05/18/25 14:16 Eos % (Auto) 2.3 % 05/18/25 14:16 Baso % (Auto) 0.6 % 05/18/25 14:16 Reticulocyte % (Auto) 3.81 % (0.50-2.00) H 05/18/25 14:16 Neut # (Auto) 5.22 K/uL (1.40-6.50) 05/18/25 14:16 Lymph # (Auto) 1.64 K/uL (1.20-3.40) 05/18/25 14:16 [place] # (Auto) 0.81 K/uL (0.11-0.59) H 05/18/25 14:16 Eos # (Auto) 0.18 K/uL (0.00-0.50) 05/18/25 14:16 Baso # (Auto) 0.05 K/uL (0.00-0.20) 05/18/25 14:16 Reticulocyte # 0.110 10^6/uL (0.020-0.100) H 05/18/25 14:16 Immature Gran # (Auto) 0.03 K/uL (0.01-0.20) 05/18/25 14:16 PT 10.8 Seconds (9.0-12.0) 05/18/25 14:16 INR 1.0 (0.9-1.1) 05/18/25 14:16 APTT 29 Seconds (21-31) 05/18/25 14:16 PTT Ratio 1.1 05/18/25 14:16 Sodium 132 mmol/L (136-145) L 05/18/25 14:16 Potassium 3.8 mmol/L (3.5-5.1) 05/18/25 14:16 Chloride 99 mmol/L (98-107) 05/18/25 14:16 Carbon Dioxide 28 mmol/L (21-32) 05/18/25 14:16 Anion Gap 5 (3-11) 05/18/25 14:16 BUN 15 mg/dl (6-23) 05/18/25 14:16 Creatinine 0.85 mg/dl (0.6-1.4) 05/18/25 14:16 Est Cr Clr Drug Dosing 83.2 ml/min 05/18/25 14:16 eGFR 94.65 05/18/25 14:16 BUN/Creatinine Ratio 17.6 (10-20) 05/18/25 14:16 Glucose 161 mg/dl (70-99(Fasting)) H 05/18/25 14:16 Calcium 9.0 mg/dl (8.6-10.3) 05/18/25 14:16 Iron 32 mcg/dl (35-175) L 05/18/25 14:16 TIBC 416 mcg/dl (250-450) 05/18/25 14:16 Transferrin 297 mg/dl (200-360) 05/18/25 14:16 Transferrin % Sat 8 % (20-50) L 05/18/25 14:16 Total Bilirubin 0.2 mg/dl (0.2-1.0) 05/18/25 14:16 AST 18 U/L (13-39) 05/18/25 14:16 ALT 16 U/L (7-52) 05/18/25 14:16 Alkaline Phosphatase 67 U/L (34-104) 05/18/25 14:16 Troponin I High Sens 7.6 pg/ml (0-20) 05/18/25 16:35 Total Protein 6.6 gm/dl (6.0-8.3) 05/18/25 14:16 Albumin 4.0 gm/dl (3.4-5.0) 05/18/25 14:16 Globulin 2.6 gm/dl (2.5-4.0) 05/18/25 14:16 Albumin/Globulin Ratio 1.5 (0.9-2) 05/18/25 14:16 Lipase 37 U/L (11-82) 05/18/25 14:16 Vitamin B12 242 pg/ml (180-914) 05/18/25 14:16 Folate > 22.30 ng/ml (>5.38) 05/18/25 14:16 Adenovirus (PCR) Not Detected (NotDetected) 05/18/25 16:20 B. pertussis DNA (PCR) Not Detected (NotDetected) 05/18/25 16:20 B.parapertussis DNA PCR Not Detected (NotDetected) 05/18/25 16:20 C. pneumoniae DNA (PCR) Not Detected (NotDetected) 05/18/25 16:20 Coronavirus OC43 (PCR) Not Detected (NotDetected) 05/18/25 16:20 Coronavirus HKU1 (PCR) Not Detected (NotDetected) 05/18/25 16:20 Coronavirus 229E (PCR) Not Detected (NotDetected) 05/18/25 16:20 SARS-CoV-2 (PCR) Not Detected (NotDetected) 05/18/25 16:20 Coronavirus NL63 (PCR) Not Detected (NotDetected) 05/18/25 16:20 Human Metapneumovir PCR Not Detected (NotDetected) 05/18/25 16:20 Influenza Type A (PCR) Not Detected (NotDetected) 05/18/25 16:20 Influenza Type B (PCR) Not Detected (NotDetected) 05/18/25 16:20 M. pneumoniae (PCR) Not Detected (NotDetected) 05/18/25 16:20 Parainfluenza 1 (PCR) Not Detected (NotDetected) 05/18/25 16:20 Parainfluenza 2 (PCR) Not Detected (NotDetected) 05/18/25 16:20 Parainfluenza 3 (PCR) Not Detected (NotDetected) 05/18/25 16:20 Parainfluenza 4 (PCR) Not Detected (NotDetected) 05/18/25 16:20 RSV (PCR) Not Detected (NotDetected) 05/18/25 16:20 Entero/Rhino (PCR) DETECTED (NotDetected) A 05/18/25 16:20 Impressions Chest X-Ray 05/18/25 14:03 COMPARISON: 08/20/2024 FINDINGS: HEART: Normal in size. LUNGS: No focal consolidation, pleural effusion, or vascular congestion. MEEDIASTINUM: Unremarkable. BONES: Intact. OTHER: Unremarkable. IMPRESSION: No acute disease. Electronically signed by Don Reyez 05-18-2025 3:24 PM Chest CTA 05/18/25 15:18 INDICATION: Chest pain tachycardia COMPARISON: 02/23/2023 TECHNIQUE: CT images of the chest were obtained. 3D CT angiogram was generated from the axial data set. Dose reduction according to patient size and/or automated exposure control techniques have been utilized for this exam. MIP (Maximum Intensity Pixel) images were utilized. FINDINGS: AXIAL IMAGES: LUNGS: No focal consolidations. No worrisome pulmonary nodules. Stable 2-3 mm pulmonary nodule left lower lobe. Hyperinflated lungs. Several bulla. PLEURA: There is no pleural effusion. MEDIASTINUM/DELMER: No significant lymphadenopathy. CARDIAC: The heart is normal in size. AORTA: No aneurysm. Atherosclerotic changes. LIMITED ABDOMEN:Unremarkable right adrenal gland. There is 1 cm low-attenuation left adrenal gland nodule, statistically representing an adenoma. BONES: Bony thorax is intact. OTHER: Unremarkable. CTA: No evidence of pulmonary embolism. IMPRESSION: No CT evidence of pulmonary embolism. No focal consolidations. Emphysematous type scarring changes. Electronically signed by Don Reyez 05-18-2025 5:05 PM Code Status & VTE Plan Code Status Full code VTE Prophylaxis Plan VTE Prophylaxis will be ordered: Yes PG Care Time/CCT Total # of Minutes Spent Total Time Spent with Patient: Total time spent is greater than 50% in coordination of care (as documented) at patient's floor/unit and/or counseling patient: Coding Level of Care Code 87218 INT INP/OBS CARE 3/75MIN Diagnoses Chest pain R07.9 Rhinovirus infection B34.8 COPD (chronic obstructive pulmonary disease) J44.9 Anemia D64.9
[2025-05-18] MEDS: PANTOprazole 40 MG/10 ML SYR IV ONE (20:03)
[2025-05-18] MEDS ORDERED: NITROGLYCERIN SL 0.4 MG/TAB TAB SL PRN (20:52)
[2025-05-18] MEDS ORDERED: CHOLECALCIFEROL 25 MCG (1000 UNITS) TAB PO SCH (20:52)
[2025-05-18] MEDS ORDERED: ASCORBIC ACID 250 MG PO SCH (20:52)
[2025-05-18 21:04] LABS: Iron 32.0 mcg/dl (35-175); Total Iron Binding Cap Calc 416.0 mcg/dl (250-450); Transferrin 297.0 mg/dl (200-360); Transferrin (FE) Percent Satur 8.0 % (20-50)
[2025-05-18] MEDS ORDERED: INFLUENZA VACC TS2025-26(65y+)/PF (IIV3) 0.5mL Syr IM ONE (21:25)
[2025-05-18 21:28] LABS: Folate (Folic Acid),Ser orPlas > 22.30 ng/ml (>5.38); Vitamin B12 242 pg/ml (180-914)
[2025-05-18] MEDS: NICOTINE 21 MG/24 HR TDSY TD SCH (22:09)
[2025-05-18] MEDS: ALBUTEROL HFA 8 GM INHALER INH PRN (22:27)
--- NOTE | 2025-05-19 07:22 | Hospitalist Progress Note ---
Date of Service May 19, 2025 Assessment & Plan (1) Anemia: Plan: * Baseline hemoglobin 13.5. On admission, hemoglobin 9.0. Repeat labs 8.2 and now 7.4 g/dL. * Fecal occult stool was positive. Otherwise no evidence of bleeding. No other source of blood loss identified. No abdominal pain, hematemesis, melena, hematochezia * Will transfuse 1 unit of packed red blood cells. Consent obtained. * Previous colonoscopy in 01/2023 with benign polyps. Consult GI for further evaluation * Continue pantoprazole 40 mg p.o. daily. Patient did receive pantoprazole drip on admission. Currently asymptomatic (2) Iron deficiency: Plan: * Patient denies previous history of iron deficiency. He was offered iron supplement at this time defers. He is concerned about constipation. He has not seen hematology in the past. * Encourage oral iron supplementation on discharge (3) Chest pain: Plan: * Patient reports that his chest pain is resolved * Echocardiogram with mild concentric left ventricular hypertrophy. No wall motion abnormalities or significant valvular heart disease * EKG with normal sinus rhythm and no T wave abnormalities * Patient is on chronic clopidogrel secondary to history of brain aneurysm with carotid stenosis * No abnormalities on telemetry (4) Rhinovirus infection: Plan: * Supportive care * Continue droplet precautions * No hypoxia (5) COPD (chronic obstructive pulmonary disease): Plan: * Gold class C/D. Previous PFTs with severe obstructive lung dysfunction with significant bronchodilator response, air trapping, moderate decrease in DLCO * Continue Breo Ellipta. * SpO2 98% on room air (6) GERD (gastroesophageal reflux disease): Plan: * No acute complaints at this time. * Continue pantoprazole as above (7) Carotid stenosis: Plan: * Presence of internal carotid stent placed in April 2022. * Continues on clopidogrel as an outpatient. * Hold clopidogrel in anticipation of possible colonoscopy Plan Case discussed with Dr. Dorsey Continue to trend H&H Anticipate discharge home when stable Admission and Anticipated Discharge Date Admission Date: May 18, 2025 Supervising Physician Co-Signing Physician Notes The patient was not seen by me. The chart was reviewed. Case discussed with MIGUEL Han. Agree with assessment and plan Subjective Attending: Dr. Dorsey Mr. Colby was admitted yesterday with atypical chest pain and found to have rhinovirus infection. Patient currently is on isolation and is being treated supportively. Patient reports that chest pain is resolved at this time. Vital signs stable. Patient is in normal sinus rhythm at time my examination. Patient was found to be anemic with a hemoglobin of 9.0 admission. Baseline is 13.5. He denies any acute blood loss. He had a colonoscopy in 2022 which had some polyps which were benign. Patient did have a occult blood in the stool this morning. Patient is asymptomatic. No lightheadedness, no palpitations, no shortness of breath. He denies gross bleeding. Patient denies any GERD or other signs of reflux. No other acute complaints Review of Systems 2 Review of Systems: A total of 10 systems was reviewed and is negative other than as listed in the HPI Physical Exam 2 Physical Exam: GENERAL : No acute distress EYES: No icterus, gaze conjugate NOSE: No evidence of epistaxis MOUTH: No lesions or candidiasis NECK: Supple LUNGS: CTA B/L, no wheezes, rales or rhonchi HEART: Regular, rate controlled ABDOMEN: Soft, NT, ND, BS Present EXTREMITIES: No LE edema, pedal pulses intact NEURO: A&OX3 Results & Data Results & Data Vital Signs (Past 12 Hours) Vital Signs Temp Pulse Pulse Resp BP BP Pulse Ox 05/19/25 07:21 36.6 C 82 16 129/74 95 05/19/25 03:00 36.7 C 87 18 134/68 97 05/18/25 23:54 84 05/18/25 23:23 36.5 C 89 18 148/75 H 96 05/18/25 22:45 83 05/18/25 21:01 05/18/25 20:52 36.5 C 89 18 160/74 H 96 05/18/25 20:30 81 16 135/70 99 05/18/25 20:04 99 05/18/25 20:03 85 16 135/70 98 O2 Del Method 05/19/25 07:21 Room Air 05/19/25 03:00 Room Air 05/18/25 23:54 05/18/25 23:23 Room Air 05/18/25 22:45 05/18/25 21:01 Room Air 05/18/25 20:52 Room Air 05/18/25 20:30 Room Air 05/18/25 20:04 Room Air 05/18/25 20:03 Room Air Laboratory Results 05/19/25 12:49 11/30/25 07:27 Laboratory Tests 05/18/25 05/19/25 05/19/25 14:16 07:27 12:49 Hgb 9.0 L 8.2 L 7.4 L Diagnostic Findings Chest X-Ray 05/18/25 14:03 COMPARISON: 08/20/2024 FINDINGS: HEART: Normal in size. LUNGS: No focal consolidation, pleural effusion, or vascular congestion. MEEDIASTINUM: Unremarkable. BONES: Intact. OTHER: Unremarkable. IMPRESSION: No acute disease. Electronically signed by Don Reyez 05-18-2025 3:24 PM Chest CTA 05/18/25 15:18 INDICATION: Chest pain tachycardia COMPARISON: 02/23/2023 TECHNIQUE: CT images of the chest were obtained. 3D CT angiogram was generated from the axial data set. Dose reduction according to patient size and/or automated exposure control techniques have been utilized for this exam. MIP (Maximum Intensity Pixel) images were utilized. FINDINGS: AXIAL IMAGES: LUNGS: No focal consolidations. No worrisome pulmonary nodules. Stable 2-3 mm pulmonary nodule left lower lobe. Hyperinflated lungs. Several bulla. PLEURA: There is no pleural effusion. MEDIASTINUM/DELMER: No significant lymphadenopathy. CARDIAC: The heart is normal in size. AORTA: No aneurysm. Atherosclerotic changes. LIMITED ABDOMEN:Unremarkable right adrenal gland. There is 1 cm low-attenuation left adrenal gland nodule, statistically representing an adenoma. BONES: Bony thorax is intact. OTHER: Unremarkable. CTA: No evidence of pulmonary embolism. IMPRESSION: No CT evidence of pulmonary embolism. No focal consolidations. Emphysematous type scarring changes. Electronically signed by Don Reyez 05-18-2025 5:05 PM PG Care Time/CCT Total # of Minutes Spent Total Time Spent with Patient: Total time spent is greater than 50% in coordination of care (as documented) at patient's floor/unit and/or counseling patient: Coding Level of Care Code 12222 SUB INP/OBS CARE 2/35MIN Diagnoses Iron deficiency anemia, unspecified iron deficiency anemia type D50.9 Anemia type: iron deficiency Iron deficiency anemia type: unspecified iron deficiency Iron deficiency E61.1 Chest pain R07.9 Chest pain type: unspecified Rhinovirus infection B34.8 COPD (chronic obstructive pulmonary disease) J44.9 COPD type: unspecified COPD Gastroesophageal reflux disease without esophagitis K21.9 Esophagitis presence: without esophagitis Stenosis of carotid artery, unspecified laterality I65.29 Laterality: unspecified laterality Time Spent (min) 40 (1) Anemia Anemia type: iron deficiency Iron deficiency anemia type: unspecified iron deficiency Qualified Code(s): D50.9 - Iron deficiency anemia, unspecified (3) Chest pain Chest pain type: unspecified Qualified Code(s): R07.9 - Chest pain, unspecified (5) COPD (chronic obstructive pulmonary disease) COPD type: unspecified COPD Qualified Code(s): J44.9 - Chronic obstructive pulmonary disease, unspecified (6) GERD (gastroesophageal reflux disease) Esophagitis presence: without esophagitis Qualified Code(s): K21.9 - Gastro- esophageal reflux disease without esophagitis (7) Carotid stenosis Laterality: unspecified laterality Qualified Code(s): I65.29 - Occlusion and stenosis of unspecified carotid artery
[2025-05-19 08:07] LABS: Hemoglobin A1C 5.4 % (4.5-5.6)
[2025-05-19 08:08] LABS: Hematocrit (blood only) 23.9 % (42.0-52.0); Hemoglobin 8.2 g/dL (14.0-18.0); Immature Granulocytes # (auto) 0.06 K/uL (0.01-0.20); Immature Granulocytes % (auto) 0.8 %; Mean Corpuscular Hemoglobin 30.6 pg (25.0-34.0); Mean Corpuscular Volume 89.2 fL (80.0-100.0); Platelet Count 270 K/uL (130-400); RDW Standard Deviation 43.6 fL (36.4-46.3); Red Blood Count 2.68 M/uL (4.70-6.10); White Blood Count 7.15 K/ul (4.8-10.8)
[2025-05-19 08:22] LABS: Albumin Level 4.2 gm/dl (3.4-5.0); Anion Gap 5.0 (3-11); Blood Urea Nitrogen 10.0 mg/dl (6-23); Calcium 8.9 mg/dl (8.6-10.3); Carbon Dioxide 28.0 mmol/L (21-32); Chloride 98.0 mmol/L (98-107); Cholesterol 83.0 mg/dl (0-200); Creatinine Clr Calc Pharmacy 88.4 ml/min; Glucose 91.0 mg/dl (70-99(Fasting)); HDL Cholesterol 34.0 mg/dl; Magnesium 2.0 mg/dl (1.7-2.4); Potassium 4.0 mmol/L (3.5-5.1); Sodium 131.0 mmol/L (136-145); Triglycerides 116.0 mg/dl (0-150)
[2025-05-19] MEDS: FLUTICASONE/VILANTEROL 100/25MCG 14 PUFFS/INHALER INH SCH (09:07)
[2025-05-19] MEDS: CLOPIDOGREL BISULFATE 75 MG TAB PO SCH (09:07)
[2025-05-19] MEDS: LORATADINE 10 MG TAB PO SCH (09:08)
[2025-05-19] MEDS: ASPIRIN 81 MG ECTAB PO SCH (09:08)
[2025-05-19] MEDS: ATORVASTATIN 40 MG TAB PO SCH (09:08)
[2025-05-19] MEDS: LOSARTAN POTASSIUM 50 MG TAB PO SCH (09:09)
[2025-05-19] MEDS: EZETIMIBE 10 MG TAB PO SCH (09:10)
[2025-05-19] MEDS: REMOVE NICODERM PATCH SCH (09:11)
[2025-05-19] MEDS: MULTIVITAMIN TAB PO SCH (09:11)
--- NOTE | 2025-05-19 10:26 | XCELERA ---
[id number] [id number]
[2025-05-19] MEDS: PANTOprazole 40 MG/10 ML SYR IV SCH (10:30)
--- NOTE | 2025-05-19 12:08 | Electrocardiogram Report ---
Test Reason : Blood Pressure : */* mmHG Vent. Rate : 115 BPM Atrial Rate : 115 BPM P-R Int : 158 ms QRS Dur : 82 ms QT Int : 336 ms P-R-T Axes : 84 16 91 degrees QTcB Int : 464 ms Sinus tachycardia Abnormal ECG Confirmed by Orestes Angeles ([id number]) on 05/19/2025 12:08:09 PM Referred By: REFERRED SELF Confirmed By: Orestes Angeles
--- NOTE | 2025-05-19 12:11 | Electrocardiogram Report ---
Test Reason : Blood Pressure : */* mmHG Vent. Rate : 98 BPM Atrial Rate : 98 BPM P-R Int : 194 ms QRS Dur : 78 ms QT Int : 328 ms P-R-T Axes : 82 47 87 degrees QTcB Int : 418 ms Normal sinus rhythm Nonspecific ST and T wave abnormality Abnormal ECG When compared with ECG of 18-May-2025 14:06, (unconfirmed) No significant change was found Confirmed by Orestes Angeles ([id number]) on 05/19/2025 12:11:14 PM Referred By: REFERRED SELF Confirmed By: Orestes Angeles
--- NOTE | 2025-05-19 12:13 | Electrocardiogram Report ---
Test Reason : Blood Pressure : */* mmHG Vent. Rate : 77 BPM Atrial Rate : 77 BPM P-R Int : 192 ms QRS Dur : 72 ms QT Int : 372 ms P-R-T Axes : 85 20 61 degrees QTcB Int : 420 ms Normal sinus rhythm Confirmed by Orestes Angeles ([id number]) on 05/19/2025 12:13:25 PM Referred By: REFERRED SELF Confirmed By: Orestes Angeles
[2025-05-19 13:03] LABS: Hematocrit (blood only) 21.6 % (42.0-52.0); Hemoglobin 7.4 g/dL (14.0-18.0)
[2025-05-19] MEDS ORDERED: SODIUM CHLORIDE 0.9% 100 ML IV PRN (14:15)
[2025-05-19] MEDS: ACETAMINOPHEN 325 MG TAB PO ONE (16:16)
[2025-05-19 21:17] LABS: Hematocrit (blood only) 28.3 % (42.0-52.0); Hemoglobin 9.8 g/dL (14.0-18.0)
[2025-05-20 06:48] LABS: Hematocrit (blood only) 25.1 % (42.0-52.0); Hemoglobin 8.8 g/dL (14.0-18.0); Immature Granulocytes # (auto) 0.03 K/uL (0.01-0.20); Immature Granulocytes % (auto) 0.5 %; Mean Corpuscular Hemoglobin 30.2 pg (25.0-34.0); Mean Corpuscular Volume 86.3 fL (80.0-100.0); Platelet Count 243 K/uL (130-400); RDW Standard Deviation 41.1 fL (36.4-46.3); Red Blood Count 2.91 M/uL (4.70-6.10); White Blood Count 6.00 K/ul (4.8-10.8)
[2025-05-20 07:15] LABS: Albumin Level 4.0 gm/dl (3.4-5.0); Anion Gap 7.0 (3-11); Blood Urea Nitrogen 11.0 mg/dl (6-23); Calcium 8.6 mg/dl (8.6-10.3); Carbon Dioxide 26.0 mmol/L (21-32); Chloride 96.0 mmol/L (98-107); Creatinine Clr Calc Pharmacy 96.8 ml/min; Glucose 90.0 mg/dl (70-99(Fasting)); Magnesium 2.1 mg/dl (1.7-2.4); Potassium 4.0 mmol/L (3.5-5.1); Sodium 129.0 mmol/L (136-145)
--- NOTE | 2025-05-20 09:46 | Gastrointestinal Consultation ---
Date of Consultation May 20, 2025 Assessment & Plan (1) Iron deficiency: 69 year old male with history of COPD, HTN, hypertriglyceridemia, GERD, TIA, carotid stenosis, cerebral aneurysm without rupture, amaurosis fugax, s/p carotid stent on ASA and Plavix admitted through the ED w/ SOB - GI asked to evaluate for anemia, HGB 7.4 requiring RBCs transfusion. He does recall intermittent episodes of black stools which last occurred prior to admission. His stool is reported as heme positive. Will discuss timing of endoscopic evaluation w/ EGD w/ attending given his ongoing ASA/Plavix and rhinovirus positive screen. Trend H&H. Monitor and document GI output. Transfuse PRN per primary service. Continue PPI therapy. Recommend iron supplementation. I spent a total of 60 minutes on the date of service in review of patient's record, and previously obtained information in person and appropriate medical visit, discussion and education of plan, with patient and/or caregiver, placing orders for tests/referral/procedures as medically necessary and documentation of pertinent clinical information in patient's medical records for their visit today. Supervising Physician Co-Signing Physician Notes I saw and examined this patient with our nurse practitioner and agree with her assessment and plan. Presents with new onset anemia and black stool. History of COPD which increases her risk for peptic ulcer disease. Will plan for upper endoscopy tomorrow if respiratory status is optimized. History of Present Illness Reason for Consultation: Anemia HgB 7.4, baseline 13.5. No gross blood loss Requesting Physician: Chema Mccarty MD Attending Physician: Chema Mccarty MD History of Present Illness 69 year old male with history of COPD, HTN, hypertriglyceridemia, GERD, TIA, carotid stenosis, cerebral aneurysm without rupture, amaurosis fugax, s/p carotid stent on ASA and Plavix admitted through the ED w/ SOB - GI asked to evaluate for anemia. Pt was seen and evaluated, chart reviewed. He suggests over the last week or so he has had some nausea. No vomiting. No abd pain. He does recall an isolated episode of dysphagia to solids prior to arrival but this has never occurred before. He has history of GERD, suggests asymptoamtic of recent. He has not been on PPI therapy in some time. He has had on and off black stools. Suggests his last occurred prior to arrival. Stools this admission are reported as brown. There is report of a heme positive stool ASA daily Plavix daily No other NSAIDs Working on smoking cessation No ETOH HGB 7.4 --> 1 unit RBCs --> 9.8 --> 8.8 Iron 32 +entero/rhino + positive occult blood Does not recall prior EGDS Colon 2022: - Six 3 to 8 mm polyps in the rectum, in the sigmoid colon and in the transverse colon, removed with a hot snare. Resected and retrieved. - Diverticulosis in the sigmoid colon. - Non-bleeding internal hemorrhoids. Allergies Allergy/AdvReac Type Severity Reaction Status Date / Time amoxicillin AdvReac Mild anxiety Verified 01/22/25 08:25 Home Medications Medication Instructions Recorded Confirmed Type ascorbic acid (vitamin C) 250 mg 250 mg PO UD 01/20/22 05/18/25 History tablet aspirin 81 mg tablet,delayed 81 mg PO QAM 01/20/22 05/18/25 History release cholecalciferol (vitamin D3) 25 25 mcg PO UD 01/20/22 05/18/25 History mcg (1,000 unit) capsule atorvastatin 40 mg tablet (Lipitor) 40 mg PO QAM 04/28/22 05/18/25 History clopidogrel 75 mg tablet (Plavix) 75 mg PO QAM 04/28/22 05/18/25 History sildenafil 50 mg tablet (Viagra) 25 mg PO DAILY PRN Erectile 04/28/22 05/18/25 History Dysfunction mometasone 0.1 % topical ointment 1 applic topical BID PRN skin 05/22/24 05/18/25 Rx irritation #45 grams ezetimibe 10 mg tablet 10 mg PO DAILY 08/20/24 05/18/25 History loratadine 10 mg tablet 10 mg PO DAILY 08/20/24 05/18/25 History multivitamin 1 tab PO DAILY 08/20/24 05/18/25 History losartan 25 mg tablet 50 mg PO DAILY 01/22/25 05/18/25 History albuterol sulfate 90 mcg/actuation 2 puff inhalation Q6H PRN 03/05/25 05/18/25 Rx aerosol inhaler (Ventolin HFA) Shortness Of Breath #8.5 grams fluticasone furoate 100 1 inh inhalation DAILY #60 ea 03/05/25 05/18/25 Rx mcg-vilanterol 25 mcg/dose inhalation powder (Breo Ellipta) Patient History Medical History Poison lina dermatitis Colon cancer screening History of [place] spotted fever DDD (degenerative disc disease) Bulging of cervical intervertebral disc Lumbar herniated disc Osteoarthritis History of TIA (transient ischemic attack) Brain aneurysm History of myocardial infarction Emphysema of lung Surgical History History of surgery for cerebral aneurysm History of colonoscopy Hx of brain surgery Hx of tooth extraction Hx of eye surgery History of wisdom tooth extraction S/P tonsillectomy H/O hernia repair Family History Mother Ovarian cancer Other No family history of adverse response to anesthesia Denies family history of Colon cancer Prostate cancer Myocardial infarction Breast cancer Social History Smoking Status: Current every day smoker Tobacco Type: Cigarettes Age Started Using Tobacco: 17; packs per day: 0.5; Cigarettes Per Day: 5 per day; Second Hand Exposure: No; Do You Dip or Chew Tobacco: No; Tobacco Cessation Education Requested by Patient: No Hx Alcohol Use: No Hx Substance Use: No Preferred Language: Irish Communication Ability: Effective Visual Impairment: Limited Hearing Ability: Normal [employer] Executive Required: No Beliefs That Will Affect Care: None marital status: Current Living Situation: Spouse current occupational status: employed 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 How many Children do You have: 4 Other Information That Helps Us Care for You: No Feels Safe at Home: Yes Safety Concerns: Feels Safe At This Time Childhood Exposure to Second-Hand Smoke: Yes Diet: low carbohydrate, low salt and regular caffeine: Yes during the past year weight has: remained stable Dental Care, Regularly: Yes Physical Activity Frequency: 3-4 Times per Week Seatbelt Use: always Sunscreen Use: No Do you think of yourself as: straight/heterosexual Gender Identity: Male Assistive Devices: None Review of Systems Review of Systems: All other findings negative except as noted in HPI. Physical Exam Constitutional: WD/WN, vitals as above Respiratory: normal respiratory effort Cardiovascular: Rate/Rhythm: regular rate and regular rhythm Gastrointestinal (Abdomen): normal bowel sounds, soft, nontender, no hepatosplenomegaly Skin: no rashes, warm and dry Results & Data Vital Signs (Past 12 Hours) Vital Signs Temp Pulse Pulse Resp BP Pulse Ox O2 Del Method 05/20/25 07:49 75 05/20/25 07:49 Room Air 05/20/25 07:05 97.7 F 84 18 114/71 94 Room Air 05/20/25 04:04 97.7 F 79 18 144/76 H 94 Room Air 05/20/25 00:12 76 05/19/25 23:55 Room Air 05/19/25 22:43 97.9 F 83 18 142/76 H 96 Room Air Laboratory Results 05/20/25 05/19/25 05/19/25 Range/Units 06:22 21:13 20:17 WBC 6.00 (4.8-10.8) K/ul RBC 2.91 L (4.70-6.10) M/uL Hgb 8.8 L 9.8 L (14.0-18.0) g/dL Hct 25.1 L 28.3 L (42.0-52.0) % MCV 86.3 (80.0-100.0) fL MCH 30.2 (25.0-34.0) pg MCHC 35.1 (32.0-36.0) g/dL RDW Std Deviation 41.1 (36.4-46.3) fL RDW Coeff of [place] 13.4 (11.5-14.5) % Plt Count 243 (130-400) K/uL MPV 9.0 L (9.4-12.4) fL Immature Gran % (Auto) 0.5 % Neut % (Auto) 59.8 % Lymph % (Auto) 23.8 % [place] % (Auto) 12.0 % Eos % (Auto) 3.2 % Baso % (Auto) 0.7 % Neut # (Auto) 3.59 (1.40-6.50) K/uL Lymph # (Auto) 1.43 (1.20-3.40) K/uL [place] # (Auto) 0.72 H (0.11-0.59) K/uL Eos # (Auto) 0.19 (0.00-0.50) K/uL Baso # (Auto) 0.04 (0.00-0.20) K/uL Immature Gran # (Auto) 0.03 (0.01-0.20) K/uL Sodium 129 L (136-145) mmol/L Potassium 4.0 (3.5-5.1) mmol/L Chloride 96 L (98-107) mmol/L Carbon Dioxide 26 (21-32) mmol/L Anion Gap 7 (3-11) BUN 11 (6-23) mg/dl Creatinine 0.73 (0.6-1.4) mg/dl Est Cr Clr Drug Dosing 96.8 ml/min eGFR 99.10 BUN/Creatinine Ratio 15.1 (10-20) Glucose 90 (70-99(Fasting)) mg/dl Calcium 8.6 (8.6-10.3) mg/dl Phosphorus 4.0 (2.5-4.9) mg/dl Magnesium 2.1 (1.7-2.4) mg/dl Troponin I High Sens 15.7 D (0-20) pg/ml Albumin 4.0 (3.4-5.0) gm/dl Blood Type Antibody Screen Crossmatch 05/19/25 Range/Units 12:49 WBC (4.8-10.8) K/ul RBC (4.70-6.10) M/uL Hgb 7.4 L (14.0-18.0) g/dL Hct 21.6 L (42.0-52.0) % MCV (80.0-100.0) fL MCH (25.0-34.0) pg MCHC (32.0-36.0) g/dL RDW Std Deviation (36.4-46.3) fL RDW Coeff of [place] (11.5-14.5) % Plt Count (130-400) K/uL MPV (9.4-12.4) fL Immature Gran % (Auto) % Neut % (Auto) % Lymph % (Auto) % [place] % (Auto) % Eos % (Auto) % Baso % (Auto) % Neut # (Auto) (1.40-6.50) K/uL Lymph # (Auto) (1.20-3.40) K/uL [place] # (Auto) (0.11-0.59) K/uL Eos # (Auto) (0.00-0.50) K/uL Baso # (Auto) (0.00-0.20) K/uL Immature Gran # (Auto) (0.01-0.20) K/uL Sodium (136-145) mmol/L Potassium (3.5-5.1) mmol/L Chloride (98-107) mmol/L Carbon Dioxide (21-32) mmol/L Anion Gap (3-11) BUN (6-23) mg/dl Creatinine (0.6-1.4) mg/dl Est Cr Clr Drug Dosing ml/min eGFR BUN/Creatinine Ratio (10-20) Glucose (70-99(Fasting)) mg/dl Calcium (8.6-10.3) mg/dl Phosphorus (2.5-4.9) mg/dl Magnesium (1.7-2.4) mg/dl Troponin I High Sens (0-20) pg/ml Albumin (3.4-5.0) gm/dl Blood Type O Positive Antibody Screen NEGATIVE Crossmatch See Detail PG Care Time/CCT Total # of Minutes Spent Total Time Spent with Patient: Total time spent is greater than 50% in coordination of care (as documented) at patient's floor/unit and/or counseling patient: Coding Level of Care Code 08030 INT INP/OBS CARE 2MIN Diagnoses Iron deficiency E61.1
--- NOTE | 2025-05-20 10:04 | Electrocardiogram Report ---
Test Reason : Blood Pressure : */* mmHG Vent. Rate : 80 BPM Atrial Rate : 80 BPM P-R Int : 178 ms QRS Dur : 82 ms QT Int : 384 ms P-R-T Axes : 81 25 68 degrees QTcB Int : 442 ms Normal sinus rhythm Septal infarct (cited on or before 19-May-2025) Abnormal ECG When compared with ECG of 19-May-2025 05:56, No significant change was found Confirmed by Stalin Perez ([id number]) on 05/20/2025 10:03:44 AM Referred By: REFERRED SELF Confirmed By: Stalin Perez
--- NOTE | 2025-05-20 13:10 | Hospitalist Progress Note ---
"Date of Service May 20, 2025 Assessment & Plan (1) Anemia: (2) Iron deficiency: (3) Chest pain: (4) Rhinovirus infection: (5) COPD (chronic obstructive pulmonary disease): (6) GERD (gastroesophageal reflux disease): (7) Carotid stenosis: Plan #Anemia | suspected upper GI bleed Baseline hemoglobin 13.5 On admission, hemoglobin 9.0. Repeat labs 7.4 g/dL. Fecal occult stool was positive. Otherwise no evidence of bleeding. No other source of blood loss identified. No abdominal pain, hematemesis, melena, hematochezia S/p 1 unit of packed red blood cells Following transfusion, Hgb trend: 9.8 -> 8.8 Previous colonoscopy in 01/2023 with benign polyps Patient denies prior history of EGD GI consult appreciated Will plan for EGD on 05/21 N.p.o. at midnight Plavix remains on hold Patient did receive pantoprazole drip on admission; continue on pantoprazole 40 mg IV BID Note: While patient denies NSAID use, he is currently on aspirin + Plavix for history of brain aneurysm with carotid stenosis s/p stent (TCAR in 2021), NV at the age of [age] years old, and prior CVAs (in 2020). Patient is a current everyday tobacco cigarette smoker, but is currently trying to quit. Given vasculopathic risks + cigarette smoking, will plan to leave patient on aspirin in the setting of GI bleed. Hold Plavix (as above). #Iron deficiency Patient denies previous history of iron deficiency. He was offered iron supplement at this time defers. He is concerned about constipation. He has not seen hematology in the past. Encourage oral iron supplementation on discharge #Chest pain (resolved) Patient reports that his chest pain is resolved Echocardiogram with mild concentric left ventricular hypertrophy. No wall motion abnormalities or significant valvular heart disease EKG with normal sinus rhythm and no T wave abnormalities Patient is on chronic clopidogrel secondary to history of brain aneurysm with carotid stenosis No abnormalities on telemetry #Rhinovirus infection Supportive care Continue droplet precautions No hypoxia #COPD Gold class C/D. Previous PFTs with severe obstructive lung dysfunction with significant bronchodilator response, air trapping, moderate decrease in DLCO Continue Breo Ellipta. SpO2 98% on room air #GERD No acute complaints at this time. Continue pantoprazole as above #Carotid stenosis Presence of internal carotid stent placed in April 2022. Continues on clopidogrel as an outpatient. Hold clopidogrel in anticipation of possible colonoscopy Disposition: Continued stay on PCU telemetry; planned EGD on 05/21 DVT PPx: hold chemical DVT PPx in the setting of suspected upper GI bleed Admission and Anticipated Discharge Date Admission Date: May 19, 2025 Supervising Physician Co-Signing Physician Notes I did not see or examine the patient. I verified all lee points and agree with Edison Pizarro PA-C with the following exceptions and/or additions: None Subjective Mr. Iqbal is in good spirits this morning. He does endorse having a dark/tarry black bowel movement earlier today. Originally, this for started 3 to 4 weeks ago, but cleared up for a while, and then returned about a week ago. He does not use iron supplements at baseline or Pepto-Bismol. Patient denies any recent NSAID use. However, he does take aspirin and Plavix for history of a carotid stent, as well as history of strokes in 2020. Additionally, patient did have an NV at 23 years old[address] Follows with Dr. Witt (cardiology) as well as Dr. English (vascular surgery). While patient denies prior history of significant GI issues such as ulcers, he does have a history of acid reflux, and previously took Pepcid, but has not needed this in the past couple years. He is a current everyday tobacco cigarette smoker, but is trying to quit (currently on Chantix). He denies any alcohol use in the past year. Originally, patient came into the hospital as his was sick with COVID since last Tuesday, and he felt like he might have something due to his lightheadedness. He does have a history of COPD, and is currently on Breo Ellipta. On the morning prior to arrival, he ate a big bowl of cereal, and developed epigastric pain shortly thereafter. He characterized it as epigastric pain, like something was stuck in the bottom of his esophagus. ROS: Patient endorses lightheadedness with walking, IYER when walking up steps, epigastric pain (improving from prior), nausea, melena, and clear sputum production/cough. Patient denies fevers overnight, chest pain, pleuritic CP, SOB at rest, BRB in stool, or change in urinary habits. Review of Systems Review of Systems: See HPI above Physical Exam Physical Exam: General: no acute distress; pleasant affect; sitting upright in chair watching TV; non-toxic appearing; cooperative; SpO2 95% on RA HEENT: normocephalic, atraumatic; PERRLA; vision and hearing intact Neck: supple; trachea midline Skin: warm, dry without signs of tenting; no cyanosis; no rashes, bruising, lesions, or erythema noted CV: chest wall NTP; RRR; S1/S2 normal; no murmurs/rubs/gallops; pulses intact and symmetric at radial, DP, and PT Lungs: no acute respiratory distress; symmetrical chest wall expansion; clear breath sounds across all lung walker w/o adventitious sounds; no wheezing ABD: Soft, NTP in all 4 quadrant; no rashes or bruises appreciated in the abdomen or flanks bilaterally; BS present; no rebound/guarding; no distention MSK: no tics or fasciculations; no edema noted in the LEs b/l, nonerythematous Neuro: A&Ox3; normal mood and affect; fluent speech; sensation intact and symmetric in the LEs b/l Results & Data Results & Data Vital Signs (Past 12 Hours) Vital Signs Temp Pulse Pulse Resp BP Pulse Ox O2 Del Method 05/20/25 11:15 36.5 C 85 18 132/69 95 Room Air 05/20/25 07:49 75 05/20/25 07:49 Room Air 05/20/25 07:05 36.5 C 84 18 114/71 94 Room Air 05/20/25 04:04 36.5 C 79 18 144/76 H 94 Room Air PG Care Time/CCT Total # of Minutes Spent Total Time Spent with Patient: Total time spent is greater than 50% in coordination of care (as documented) at patient's floor/unit and/or counseling patient: Coding [place] [address] SUB INP/OBS CARE 3/50MIN Patient Type Established Medical Decision Making High Complexity Diagnoses Iron deficiency anemia, unspecified iron deficiency anemia type D50.9 Anemia type: iron deficiency Iron deficiency anemia type: unspecified iron deficiency Iron deficiency E61.1 Chest pain R07.9 Chest pain type: unspecified Rhinovirus infection B34.8 COPD (chronic obstructive pulmonary disease) J44.9 COPD type: unspecified COPD Gastroesophageal reflux disease without esophagitis K21.9 Esophagitis presence: without esophagitis Stenosis of carotid artery, unspecified laterality I65.29 Laterality: unspecified laterality (1) Anemia Anemia type: iron deficiency Iron deficiency anemia type: unspecified iron deficiency Qualified Code(s): D50.9 - Iron deficiency anemia, unspecified (3) Chest pain Chest pain type: unspecified Qualified Code(s): R07.9 - Chest pain, unspecified (5) COPD (chronic obstructive pulmonary disease) COPD type: unspecified COPD Qualified Code(s): J44.9 - Chronic obstructive pulmonary disease, unspecified (6) GERD (gastroesophageal reflux disease) Esophagitis presence: without esophagitis Qualified Code(s): K21.9 - Gastro- esophageal reflux disease without esophagitis (7) Carotid stenosis Laterality: unspecified laterality Qualified Code(s): I65.29 - Occlusion and stenosis of unspecified carotid artery"
[2025-05-20] MEDS: PANTOprazole 40 MG/10 ML SYR IV SCH (20:21)
[2025-05-20] MEDS: ACETAMINOPHEN 325 MG TAB PO PRN (20:30)
[2025-05-21] MEDS: SODIUM CHLORIDE 0.9% 1,000 ML IV SCH ×2 (06:06→20:08)
[2025-05-21 06:47] LABS: Hematocrit (blood only) 25.5 % (42.0-52.0); Hemoglobin 9.0 g/dL (14.0-18.0); Immature Granulocytes # (auto) 0.08 K/uL (0.01-0.20); Immature Granulocytes % (auto) 1.3 %; Mean Corpuscular Hemoglobin 30.7 pg (25.0-34.0); Mean Corpuscular Volume 87.0 fL (80.0-100.0); Platelet Count 249 K/uL (130-400); RDW Standard Deviation 42.2 fL (36.4-46.3); Red Blood Count 2.93 M/uL (4.70-6.10); White Blood Count 6.04 K/ul (4.8-10.8)
[2025-05-21 07:15] LABS: Albumin Level 4.0 gm/dl (3.4-5.0); Anion Gap 6.0 (3-11); Blood Urea Nitrogen 9.0 mg/dl (6-23); Calcium 8.5 mg/dl (8.6-10.3); Carbon Dioxide 26.0 mmol/L (21-32); Chloride 96.0 mmol/L (98-107); Creatinine Clr Calc Pharmacy 88.4 ml/min; Glucose 90.0 mg/dl (70-99(Fasting)); Magnesium 2.2 mg/dl (1.7-2.4); Potassium 4.0 mmol/L (3.5-5.1); Sodium 128.0 mmol/L (136-145)
--- NOTE | 2025-05-21 09:42 | Gastroenterology Progress Note ---
Date of Service May 21, 2025 Assessment & Plan (1) Iron deficiency: Plan: 69 year old male with history of COPD, HTN, hypertriglyceridemia, GERD, TIA, carotid stenosis, cerebral aneurysm without rupture, amaurosis fugax, s/p carotid stent on ASA and Plavix admitted through the ED w/ SOB - GI asked to evaluate for anemia, HGB 7.4 requiring RBCs transfusion. NPO for EGD evaluation this AM given report of black stools. Hold ASA/Plavix. Trend H&H. Monitor and document GI output. Transfuse PRN per primary service. Continue PPI therapy. Recommend iron supplementation. We appreciate assistance in the management of any serological abnormality and corrections to include: hemoglobin >7, INR <2, platelets >50,000, potassium levels >3.5 but <5.3, and sodium levels within 5 points of the reference range prior to endoscopic evaluation. Admission and Anticipated Discharge Date Admission Date: May 19, 2025 Supervising Physician Co-Signing Physician Notes I saw and examined this patient with our nurse practitioner and agree with her assessment and plan. Possible upper GI bleed in light of Hemoccult positive stool possible melena and significant anemia. Will proceed with endoscopy today. Subjective NPO for EGD. He reports black stool yesterday. No BRBPR. Review of Systems Review of Systems: All other findings negative except as noted in HPI. Physical Exam Constitutional: well developed and well nourished Respiratory: normal respiratory effort Cardiovascular: Rate/Rhythm: regular rate Skin: no rashes, warm and dry Results & Data Results & Data Vital Signs (Past 12 Hours) Vital Signs Temp Pulse Pulse Resp BP Pulse Ox O2 Del Method 05/21/25 09:12 Room Air 05/21/25 07:17 97.7 F 83 18 142/63 H 95 Room Air 05/21/25 02:56 97.7 F 64 16 125/69 94 Room Air 05/20/25 22:51 72 05/20/25 22:42 97.7 F 70 16 161/77 H 94 Room Air PG Care Time/CCT Total # of Minutes Spent Total Time Spent with Patient: Total time spent is greater than 50% in coordination of care (as documented) at patient's floor/unit and/or counseling patient: Coding Level of Care Code None Diagnoses Iron deficiency E61.1
--- NOTE | 2025-05-21 11:09 | Anesthesiology Consultation ---
Date of Service May 21, 2025 Assessment & Plan Chart Review Chart Review: Acceptable Risk for Surgery and Patient NOT seen in Pre Admission Testing Consults Requested none ASA ASA4 Proposed Anesthesia Anesthesia Type: MAC History Surgery Operation Date: 05/21/25 16:30 Proposed Procedures p Esophagogastroduodenoscopy Dr. Shanta Womack MD Height/Weight Height: 5 ft 9 in Weight: 76.402 kg Allergies Allergy/AdvReac Type Severity Reaction Status Date / Time amoxicillin AdvReac Mild anxiety Verified 01/22/25 08:25 Medications Home Medications Medication Instructions Recorded Confirmed Last Taken ascorbic acid (vitamin C) 250 mg 250 mg PO UD 01/20/22 05/18/25 01/25/23 tablet aspirin 81 mg tablet,delayed 81 mg PO QAM 01/20/22 05/18/25 01/25/23 release cholecalciferol (vitamin D3) 25 25 mcg PO UD 01/20/22 05/18/25 01/25/23 mcg (1,000 unit) capsule atorvastatin 40 mg tablet (Lipitor) 40 mg PO QAM 04/28/22 05/18/25 01/25/23 clopidogrel 75 mg tablet (Plavix) 75 mg PO QAM 04/28/22 05/18/25 01/24/23 sildenafil 50 mg tablet (Viagra) 25 mg PO DAILY PRN Erectile 04/28/22 05/18/25 05/01/22 18:00 Dysfunction mometasone 0.1 % topical ointment 1 applic topical BID PRN skin 05/22/24 05/18/25 Unknown irritation #45 grams ezetimibe 10 mg tablet 10 mg PO DAILY 08/20/24 05/18/25 Unknown loratadine 10 mg tablet 10 mg PO DAILY 08/20/24 05/18/25 Unknown multivitamin 1 tab PO DAILY 08/20/24 05/18/25 Unknown losartan 25 mg tablet 50 mg PO DAILY 01/22/25 05/18/25 Unknown albuterol sulfate 90 mcg/actuation 2 puff inhalation Q6H PRN 03/05/25 05/18/25 Unknown aerosol inhaler (Ventolin HFA) Shortness Of Breath #8.5 grams fluticasone furoate 100 1 inh inhalation DAILY #60 ea 03/05/25 05/18/25 Unknown mcg-vilanterol 25 mcg/dose inhalation powder (Breo Ellipta) Active Medications Generic Name Dose Route Start Last Admin Trade Name Freq PRN Reason Stop Dose Admin Acetaminophen 650 mg 05/18/25 20:52 05/21/25 08:34 Acetaminophen 325 Mg Tab PO 06/17/25 20:51 650 mg Q4H PRN Administration Pain or Fever Albuterol 2 puffs 05/18/25 20:52 05/19/25 23:01 Albuterol Hfa 8 Gm Inhaler INH 06/17/25 20:51 2 puffs Q6H PRN Administration Shortness Of Breath Aspirin 81 mg 05/19/25 09:00 05/21/25 08:14 Aspirin 81 Mg Ectab PO 06/18/25 08:59 81 mg QAM ALVARADO Administration Atorvastatin Calcium 40 mg 05/19/25 09:00 05/21/25 08:14 Atorvastatin 40 Mg Tab PO 06/18/25 08:59 40 mg QAM ALVARADO Administration Clopidogrel Bisulfate 75 mg 05/19/25 09:00 05/19/25 09:07 Clopidogrel Bisulfate 75 Mg Tab PO 06/18/25 08:59 75 mg QAM ALVARADO Administration Ezetimibe 10 mg 05/19/25 09:00 05/21/25 08:14 Ezetimibe 10 Mg Tab PO 06/18/25 08:59 10 mg DAILY ALVARADO Administration Fluticasone/Vilanterol 1 puffs 05/19/25 09:00 05/21/25 08:15 Fluticasone/Vilanterol 100/25mcg 14 Puffs/Inhaler INH 06/18/25 08:59 1 puffs DAILY ALVARADO Administration Pantoprazole Sodium 40 mg in 10 mls @ 5 mls/min 05/20/25 21:00 05/21/25 08:14 Protonix IV 06/19/25 20:59 5 mls/min BID ALVARADO Administration Sodium Chloride 1,000 mls @ 80 mls/hr 05/21/25 06:00 05/21/25 06:06 Nss IV 05/21/25 18:29 80 mls/hr .[id number] ALVARADO Administration Loratadine 10 mg 05/19/25 09:00 05/21/25 08:14 Loratadine 10 Mg Tab PO 06/18/25 08:59 10 mg DAILY ALVARADO Administration Losartan Potassium 50 mg 05/19/25 09:00 05/21/25 08:14 Losartan Potassium 50 Mg Tab PO 06/18/25 08:59 50 mg DAILY ALVARADO Administration Miscellaneous 1 each 05/19/25 08:59 05/21/25 08:15 Remove Nicoderm Patch N/A 06/18/25 08:58 1 each DAILY@0859 ALVARADO Administration Multivitamins 1 tab 05/19/25 09:00 05/21/25 08:14 Multivitamin Tab PO 06/18/25 08:59 1 tab QAM ALVARADO Administration Nicotine 1 patch 05/18/25 21:50 05/21/25 08:13 Nicotine 21 Mg/24 Hr Tdsy TD 06/17/25 21:49 1 patch QAM ALVARADO Administration Past Medical History Medical History Poison lina dermatitis Colon cancer screening History of [place] spotted fever 20 years ago DDD (degenerative disc disease) Bulging of cervical intervertebral disc Lumbar herniated disc Osteoarthritis History of TIA (transient ischemic attack) hx- hospitalization [facility] Brain aneurysm per recent CT @ MD, 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 Per PCP note, referred to [facility] neurosurgery. History of myocardial infarction in his 20s. does not follow with death clearance coordinator. denies hx cath/stents. unk etiology. Emphysema of lung ASCVD AO/carotids Anemia + tobacco Gerd Hyponatremia HTN + rhinovirus Exercise / Class Metabolic Activity III < 4 Walking/Shop/Light housework Past Family History Family History Mother Ovarian cancer Other No family history of adverse response to anesthesia Denies family history of Colon cancer Prostate cancer Myocardial infarction Breast cancer Past Surgical History Surgical History History of surgery for cerebral aneurysm 07-19-22 S/P Stent assisted coil embolization of comm aneurysm with neurosurgery. Dr Spence, [facility] History of colonoscopy Hx of brain surgery 07/2022 [facility]- states had "brain stent placed and embolization" Hx of tooth extraction Hx of eye surgery History of wisdom tooth extraction S/P tonsillectomy H/O hernia repair Past Anesthesia History No Hx of Anesthesia Complications and No Family Hx of Anesthesia Complications History of PONV No Hx of PONV and No Hx of Motion Sickness Social History Smoking Status: Current every day smoker tobacco type: cigarettes Smoking cigarettes per day: 5 per day Do You Dip or Chew Tobacco: No Hx Alcohol Use: No Alcohol type: beer alcohol intake frequency: holidays/special occasions only Hx Substance Use: No substance use type: does not use Physical Exam Vital Signs Last Vital Signs Temp 36.5 C 05/21/25 07:17 Pulse 83 05/21/25 07:17 Resp 18 05/21/25 07:17 BP 142/63 H 05/21/25 07:17 Pulse Ox 95 05/21/25 07:17 O2 Del Method Room Air 05/21/25 09:12 Testing Laboratory Results 05/21/25 06:09 05/21/25 06:09 PT 10.8 Seconds (9.0-12.0) 05/18/25 14:16 INR 1.0 (0.9-1.1) 05/18/25 14:16 APTT 29 Seconds (21-31) 05/18/25 14:16 Hemoglobin A1c 5.4 % (4.5-5.6) 05/19/25 07:27 Blood Type O Positive 05/19/25 12:49 Antibody Screen NEGATIVE 05/19/25 12:49 Electrocardiogram Date: 05/20/25 Findings: + NSR @ (@ 80;septal infarct,age ?) Chest X-Ray Date: 05/18/25 Findings: + NAD Echocardiogram Date: 05/19/25 EF: 60% LV Function: normal RWMA: + none Other Findings: + LVH (mild) Valvular Disease: + no significant valvular disease
[2025-05-21] MEDS ORDERED: ATROPINE SULFATE 0.1 MG/ML 10ML SYR IV PRN (11:23)
[2025-05-21] MEDS: SODIUM CHLORIDE 0.9% 500 ML IV SCH (11:30)
[2025-05-21] MEDS ORDERED: PANTOPRAZOLE BOLUS/DRIP IV STA (12:08)
--- NOTE | 2025-05-21 12:10 | GI REPORT ---
[facility] Patient: ADALBERTO GRAJEDA : 1955 Sex at : Male Age: 69 Years Procedure: Upper GI endoscopy Date: 05/21/2025 Attending Physician: Kali Womack MD Referring MD: Pawel Greene Do Indications: - Suspected upper gastrointestinal bleeding Medications: - Monitored Anesthesia Care Complications: - No immediate complications. Estimated Blood Loss: - Estimated blood loss was minimal. Procedure: - Prior to the procedure, a History and Physical was performed, and patient medications and allergies were reviewed. The patient's tolerance of previous anesthesia was also reviewed. The risks and benefits of the procedure and the sedation options and risks were discussed with the patient. All questions were answered, and informed consent was obtained. [Anticoagulant Agents] [Days Prior to Procedure]. [ASA Grade]. After reviewing the risks and benefits, the patient was deemed in satisfactory condition to undergo the procedure. - The egd scope was introduced through the mouth and advanced to the second part of the duodenum. - The T1 egd scope was introduced through the mouth and advanced to the second part of the duodenum. - The upper GI endoscopy was accomplished without difficulty. - The patient tolerated the procedure well. Findings: - Long segment Adams's esophagus present in the lower third of the esophagus. - The entire examined stomach was normal. Biopsies were taken with a cold forceps for Helicobacter pylori testing. - One oozing cratered duodenal ulcer with a visible vessel was found in the duodenal bulb. The lesion was 15 mm in largest dimension. Area was injected with 3 mL of a 0.1 mg/mL solution (1:10,000) of epinephrine for hemostasis. Coagulation for hemostasis using 10 FR bipolar probe was successful. Impression: - Adams's esophagus. - Normal stomach. Biopsied. - Oozing duodenal ulcer with a visible vessel. Treated with bipolar cautery. - The examination was otherwise normal. Recommendation: - Resume previous diet. - Patient has a contact number available for emergencies. The signs and symptoms of potential delayed complications were discussed with the patient. Return to normal activities tomorrow. Written discharge instructions were provided to the patient. - Start PPI drip and keep n.p.o. until tomorrow Procedure Code(s): - 83728-43, Esophagogastroduodenoscopy, flexible, transoral; with control of bleeding, any method - 19805, Esophagogastroduodenoscopy, flexible, transoral; with biopsy, single or multiple Diagnosis Code(s): - K26.4, Chronic or unspecified duodenal ulcer with hemorrhage - K22.70, Adams's esophagus without dysplasia CPT(R) - 2022 copyright [employer]. All Rights Reserved. The CPT codes, CCI edits and ICD codes generated are intended as suggestions and were generated based on input data. These codes are preliminary and upon fast food restaurant manager review may be revised to meet current compliance and payer requirements. The provider is responsible for the final determination of appropriate codes, and modifiers. Kali Womack MD This document has been electronically signed. Note Initiated:05/21/2025 Note Completed:05/21/2025 12:10 PM \\[email or web address]\[id number]
--- NOTE | 2025-05-21 12:13 | Anesthesiology Progress Note ---
Date of Service May 21, 2025 Anesthesia Post Procedure Vital Signs Vital Signs: Temp Pulse Pulse Pulse Resp BP Pulse Ox 05/21/25 11:20 36.7 C 77 18 172/85 H 96 05/21/25 09:12 05/21/25 07:17 36.5 C 83 18 142/63 H 95 05/21/25 02:56 36.5 C 64 16 125/69 94 05/20/25 22:51 72 05/20/25 22:42 36.5 C 70 16 161/77 H 94 05/20/25 19:53 05/20/25 19:14 36.4 C L 79 16 143/70 H 96 05/20/25 16:19 05/20/25 14:55 36.7 C 76 18 144/75 H 97 05/20/25 14:32 76 O2 Del Method 05/21/25 11:20 Room Air 05/21/25 09:12 Room Air 05/21/25 07:17 Room Air 05/21/25 02:56 Room Air 05/20/25 22:51 05/20/25 22:42 Room Air 05/20/25 19:53 Room Air 05/20/25 19:14 Room Air 05/20/25 16:19 Room Air 05/20/25 14:55 Room Air 05/20/25 14:32 Transfer of Care Handoff Completed per policy Notes Mental Status: alert / awake / arousable Patient Amnestic to Procedure: Yes Nausea / Vomiting: adequately controlled Pain: adequately controlled Airway Patency, RR, SpO2: stable & adequate BP & HR: stable & adequate Hydration State: stable & adequate Anesthetic Complications: no major complications apparent
[2025-05-21] MEDS: PANTOprazole 40 MG in DEXTROSE 5% MINI-B 100 ML IV SCH (13:03)
--- NOTE | 2025-05-21 15:22 | Hospitalist Progress Note ---
"Date of Service May 21, 2025 Assessment & Plan (1) Acute blood loss anemia: (2) Upper GI bleed: (3) Duodenal ulcer: (4) Iron deficiency: (5) Chest pain: (6) Rhinovirus infection: (7) COPD (chronic obstructive pulmonary disease): (8) GERD (gastroesophageal reflux disease): (9) Carotid stenosis: Plan This patient is a 69-year-old male who presented on 05/17 for worsening SOB and chest pain in the days leading up to arrival. #Acute blood loss anemia | Duodenal ulcer | Upper GI Bleed Baseline hemoglobin 13.5 On admission, hemoglobin 9.0. Repeat labs 7.4 g/dL. Fecal occult stool was positive. Otherwise no evidence of bleeding. No other source of blood loss identified. No abdominal pain, hematemesis, melena, hematochezia S/p 1 unit of packed red blood cells Following transfusion, Hgb trend: 8.8 -> 9.0 (stable pre-op) Previous colonoscopy in 01/2023 with benign polyps Patient denies prior history of EGD GI consult appreciated EGD on 05/21 revealed a cratered duodenal ulcer (15 mm in largest dimension) Treated with bipolar cautery Plan to restart pantoprazole drip and keep n.p.o. until tomorrow (05/22) Put on additional IVF at 80mL/hr overnight May resume diet tomorrow Note: While patient denies NSAID use, he is currently on aspirin + Plavix for history of brain aneurysm with carotid stenosis s/p stent (TCAR in 2021), MA at the age of [age] years old, and prior CVAs (in 2020). Patient is a current everyday tobacco cigarette smoker, but is currently trying to quit. Given vasculopathic risks + cigarette smoking, would not recommend keeping patient off of aspirin/Plavix for an extended period of time. Hold aspirin and Plavix for now, but recommended restarting at least monotherapy within the next 7 days #Iron deficiency Patient denies previous history of iron deficiency. He was offered iron haines pplement at this time defers. He is concerned about constipation. He has not seen hematology in the past. Encourage oral iron supplementation on discharge #Chest pain (resolved) Patient reports that his chest pain is resolved Echocardiogram with mild concentric left ventricular hypertrophy. No wall motion abnormalities or significant valvular heart disease EKG with normal sinus rhythm and no T wave abnormalities Patient is on chronic clopidogrel secondary to history of brain aneurysm with carotid stenosis No abnormalities on telemetry #Rhinovirus infection Supportive care Continue droplet precautions No hypoxia #COPD Gold class C/D. Previous PFTs with severe obstructive lung dysfunction with significant bronchodilator response, air trapping, moderate decrease in DLCO Continue Breo Ellipta. SpO2 98% on room air #GERD No acute complaints at this time. Continue pantoprazole as above #Carotid stenosis Presence of internal carotid stent placed in April 2022. Continues on clopidogrel as an outpatient. Hold clopidogrel in anticipation of possible colonoscopy Disposition: Continued stay on PCU telemetry DVT PPx: hold chemical DVT PPx in the setting of upper GI bleed Admission and Anticipated Discharge Date Admission Date: May 19, 2025 Supervising Physician Co-Signing Physician Notes I did not se or examine the patient. I verified all lee points and agree with Edison Pizarro PA-C with the following exceptions and/or additions: None Subjective Mr. Iqbal is in good spirits following his EGD. He had some epigastric pain following the procedure, but denies any pain at this time. No nausea or vomiting. No bowel movements following procedure. He denies any difficulty swallowing or pain in the throat. Overall, his main concern right now is that he is hungry. ROS: Patient Dors is melena. Patient denies chest pain, SOB, cough, difficulty swallowing, sore throat, abdominal pain, epigastric pain, nausea, or vomiting. Review of Systems Review of Systems: See HPI above Physical Exam Physical Exam: General: no acute distress; pleasant affect; sitting upright in bed watching TV; non-toxic appearing; cooperative; SpO2 94% on RA HEENT: normocephalic, atraumatic; PERRLA; vision and hearing intact Neck: supple; trachea midline Skin: warm, dry without signs of tenting; no cyanosis; no rashes, bruising, lesions, or erythema noted CV: chest wall NTP; RRR; S1/S2 normal; no murmurs/rubs/gallops; pulses intact and symmetric at radial, DP, and PT Lungs: no acute respiratory distress; symmetrical chest wall expansion; clear breath sounds across all lung walker w/o adventitious sounds; no wheezing ABD: Soft, NTP in all 4 quadrant; epigastric region NTP; no rashes or bruises appreciated in the abdomen or flanks bilaterally; BS present; no rebound/guarding; no distention MSK: no tics or fasciculations; no edema noted in the LEs b/l, nonerythematous Neuro: A&Ox3; normal mood and affect; fluent speech; sensation intact and symmetric in the LEs b/l Results & Data Results & Data Vital Signs (Past 12 Hours) Vital Signs Temp Pulse Pulse Pulse Resp BP Pulse Ox 05/21/25 15:20 36.6 C 83 18 155/80 H 94 05/21/25 14:20 66 05/21/25 12:55 36.2 C L 63 18 121/67 92 05/21/25 12:37 74 18 157/85 H 95 05/21/25 12:22 74 18 148/73 H 94 05/21/25 12:07 92 H 18 154/79 H 98 05/21/25 11:20 36.7 C 77 18 172/85 H 96 05/21/25 09:12 05/21/25 07:17 36.5 C 83 18 142/63 H 95 05/21/25 05:29 66 O2 Del Method 05/21/25 15:20 Room Air 05/21/25 14:20 05/21/25 12:55 Room Air 05/21/25 12:37 Room Air 05/21/25 12:22 Room Air 05/21/25 12:07 Room Air 05/21/25 11:20 Room Air 05/21/25 09:12 Room Air 05/21/25 07:17 Room Air 05/21/25 05:29 PG Care Time/CCT Total # of Minutes Spent Total Time Spent with Patient: Total time spent is greater than 50% in coordination of care (as documented) at patient's floor/unit and/or counseling patient: Coding [place] [address] SUB INP/OBS CARE 3/50MIN Patient Type Established Medical Decision Making High Complexity Diagnoses Acute blood loss anemia D62 Upper GI bleed K92.2 Duodenal ulcer K26.9 Iron deficiency E61.1 Chest pain R07.9 Chest pain type: unspecified Rhinovirus infection B34.8 COPD (chronic obstructive pulmonary disease) J44.9 COPD type: unspecified COPD Gastroesophageal reflux disease without esophagitis K21.9 Esophagitis presence: without esophagitis Stenosis of carotid artery, unspecified laterality I65.29 Laterality: unspecified laterality (5) Chest pain Chest pain type: unspecified Qualified Code(s): R07.9 - Chest pain, unspecified (7) COPD (chronic obstructive pulmonary disease) COPD type: unspecified COPD Qualified Code(s): J44.9 - Chronic obstructive pulmonary disease, unspecified (8) GERD (gastroesophageal reflux disease) Esophagitis presence: without esophagitis Qualified Code(s): K21.9 - Gastro- esophageal reflux disease without esophagitis (9) Carotid stenosis Laterality: unspecified laterality Qualified Code(s): I65.29 - Occlusion and stenosis of unspecified carotid artery"
[2025-05-21] MEDS: LIDOCAINE 2% 2 ML VIAL/AMP(20MG/ML) INFIL ONE ×3 (16:53)
[2025-05-21] MEDS: PROPOFOL IV EMULSION 10 MG/ML 20 ML VIAL IV ONE ×3 (16:53→16:54)
[2025-05-21] MEDS: METOCLOPRAMIDE HCL INJ 5 MG/ML 2 ML VIAL ONE (16:54)
[2025-05-21] MEDS: DEXAMETHASONE SOD INJ 4 MG/ML VIAL ONE (16:54)
[2025-05-21] MEDS: ONDANSETRON INJ 2 MG/ML 2 ML VIAL ONE (16:54)
[2025-05-21] MEDS: MELATONIN 3 MG TAB PO PRN (22:24)
[2025-05-22 06:32] LABS: Hematocrit (blood only) 29.2 % (42.0-52.0); Hemoglobin 10.0 g/dL (14.0-18.0); Immature Granulocytes # (auto) 0.05 K/uL (0.01-0.20); Immature Granulocytes % (auto) 0.7 %; Mean Corpuscular Hemoglobin 29.8 pg (25.0-34.0); Mean Corpuscular Volume 86.9 fL (80.0-100.0); Platelet Count 271 K/uL (130-400); RDW Standard Deviation 41.9 fL (36.4-46.3); Red Blood Count 3.36 M/uL (4.70-6.10); White Blood Count 6.76 K/ul (4.8-10.8)
[2025-05-22 06:51] LABS: Anion Gap 9.0 (3-11); Blood Urea Nitrogen 12.0 mg/dl (6-23); Calcium 9.1 mg/dl (8.6-10.3); Carbon Dioxide 22.0 mmol/L (21-32); Chloride 99.0 mmol/L (98-107); Creatinine Clr Calc Pharmacy 78.6 ml/min; Glucose 120.0 mg/dl (70-99(Fasting)); Potassium 4.5 mmol/L (3.5-5.1); Sodium 130.0 mmol/L (136-145)
--- NOTE | 2025-05-22 07:23 | Gastroenterology Progress Note ---
Date of Service May 22, 2025 Assessment & Plan (1) Duodenal ulcer: Plan: Status post endoscopy with thermal therapy of bleeding ulcer. Hemoglobin stable no signs of persistent bleeding. Okay to advance to regular diet. Biopsies for Helicobacter pylori status. Continue IV PPI drip. Possible discharge 24 hours. Admission and Anticipated Discharge Date Admission Date: May 19, 2025 Subjective Resting comfortably denies abdominal pain shortness of breath or chest pain. No signs of melena. Physical Exam Physical Exam: No acute distress Respiratory rate regular Cardiac rhythm regular Abdomen soft nontender Results & Data Results & Data Vital Signs (Past 12 Hours) Vital Signs Temp Pulse Pulse Resp BP Pulse Ox O2 Del Method 05/22/25 07:04 36.5 C 79 18 149/74 H 96 Room Air 05/22/25 03:01 36.4 C L 80 16 155/85 H 96 Room Air 05/22/25 00:00 89 05/21/25 22:20 36.6 C 86 20 137/74 93 Room Air 05/21/25 19:35 36.4 C L 80 20 138/74 94 Room Air 05/21/25 19:30 Room Air Laboratory Results Laboratory Results - last 48 hr 05/21/25 05/22/25 06:09 06:17 WBC 6.04 6.76 RBC 2.93 L 3.36 L Hgb 9.0 L 10.0 L Hct 25.5 L 29.2 L MCV 87.0 86.9 MCH 30.7 29.8 MCHC 35.3 34.2 RDW Std Deviation 42.2 41.9 RDW Coeff of [place] 13.6 13.6 Plt Count 249 271 MPV 8.9 L 8.5 L Immature Gran % (Auto) 1.3 0.7 Neut % (Auto) 53.8 74.4 Lymph % (Auto) 29.3 17.8 [place] % (Auto) 11.9 7.0 Eos % (Auto) 3.0 0.0 Baso % (Auto) 0.7 0.1 Neut # (Auto) 3.25 5.03 Lymph # (Auto) 1.77 1.20 [place] # (Auto) 0.72 H 0.47 Eos # (Auto) 0.18 0.00 Baso # (Auto) 0.04 0.01 Immature Gran # (Auto) 0.08 0.05 Sodium 128 L 130 L Potassium 4.0 4.5 Chloride 96 L 99 Carbon Dioxide 26 22 Anion Gap 6 9 BUN 9 12 Creatinine 0.80 0.90 Est Cr Clr Drug Dosing 88.4 78.6 eGFR 96.40 93.03 BUN/Creatinine Ratio 11.3 13.3 Glucose 90 120 H Calcium 8.5 L 9.1 Phosphorus 3.8 Magnesium 2.2 Albumin 4.0 PG Care Time/CCT Total # of Minutes Spent Total Time Spent with Patient: Total time spent is greater than 50% in coordination of care (as documented) at patient's floor/unit and/or counseling patient: Coding Level of Care Code 84167 SUB INP/OBS CARE 235MIN Diagnoses Duodenal ulcer K26.9
--- NOTE | 2025-05-22 08:19 | Hospitalist Progress Note ---
Date of Service May 22, 2025 Assessment & Plan (1) Acute blood loss anemia: (2) Upper GI bleed: (3) Duodenal ulcer: (4) Iron deficiency: (5) Chest pain: (6) Rhinovirus infection: (7) COPD (chronic obstructive pulmonary disease): (8) GERD (gastroesophageal reflux disease): (9) Carotid stenosis: Plan This patient is a 69-year-old male who presented on 05/17 for worsening SOB and chest pain in the days leading up to arrival. #Acute blood loss anemia | Duodenal ulcer | Upper GI Bleed Baseline hemoglobin 13.5 Received 1 unit PRBCs after Hb dropped to 7.4 in the hospital + notable melena GI consult appreciated EGD on 05/21 revealed a cratered duodenal ulcer (15 mm in largest dimension) Treated with bipolar cautery Current Hgb trend 9.0 -> 10.0 (improving) Continue IV pantoprazole drip Advanced to clear liquid diet on the morning of 05/22 Note: While patient denies NSAID use, he is currently on aspirin + Plavix for history of brain aneurysm with carotid stenosis s/p stent (TCAR in 2021), [place] at the age of [age] years old, and prior CVAs (in 2020). Patient is a current everyday tobacco cigarette smoker, but is currently trying to quit. Given vasculopathic risks + cigarette smoking, would not recommend keeping patient off of aspirin/Plavix for an extended period of time. Hold aspirin and Plavix for now, but recommended restarting at least monotherapy within the next 7 days #Iron deficiency Patient denies previous history of iron deficiency. He was offered iron supplement at this time defers. He is concerned about constipation. He has not seen hematology in the past. Encourage oral iron supplementation on discharge #Chest pain (resolved) Patient reports that his chest pain is resolved Echocardiogram with mild concentric left ventricular hypertrophy. No wall motion abnormalities or significant valvular heart disease EKG with normal sinus rhythm and no T wave abnormalities Patient is on chronic clopidogrel secondary to history of brain aneurysm with carotid stenosis No abnormalities on telemetry #Rhinovirus infection Supportive care Continue droplet precautions No hypoxia #COPD Gold class C/D. Previous PFTs with severe obstructive lung dysfunction with significant bronchodilator response, air trapping, moderate decrease in DLCO Continue Breo Ellipta. SpO2 98% on room air #GERD No acute complaints at this time. Continue pantoprazole as above #Carotid stenosis Presence of internal carotid stent placed in April 2022. Continues on clopidogrel as an outpatient. Hold clopidogrel in anticipation of possible colonoscopy Disposition: Continued stay on PCU telemetry; hopeful discharge home tomorrow on 05/23 if patient tolerates advancement in diet DVT PPx: hold chemical DVT PPx in the setting of upper GI bleed Admission and Anticipated Discharge Date Admission Date: May 19, 2025 Subjective Mr. Iqbal reports that he might of ate breakfast "too fast" this morning and was feeling slight abdominal bloating/discomfort following his meal. He had vegetable broth, OJ, Jell-O, and black tea this morning, which is the first meal he has eaten since his EGD yesterday. However, he reports he did better with lunch (no nausea, abdominal pain, or bloating). No BM since yesterday. Overall he is asymptomatic at this time, and hoping to go home tomorrow if he is diet continues to be advanced. ROS: Patient endorses abdominal discomfort after eating breakfast. Patient denies fever, chest pain, SOB, cough, abdominal pain, nausea, vomiting, diarrhea, or melena (no bowel movements since Sunday 05/20) Review of Systems Review of Systems: See HPI above Physical Exam Physical Exam: General: no acute distress; pleasant affect; sitting upright in bed watching TV; non-toxic appearing; cooperative; SpO2 97% on RA HEENT: normocephalic, atraumatic; PERRLA; vision and hearing intact Neck: supple; trachea midline Skin: warm, dry without signs of tenting; no cyanosis; no rashes, bruising, lesions, or erythema noted CV: chest wall NTP; RRR; S1/S2 normal; no murmurs/rubs/gallops; pulses intact and symmetric at radial, DP, and PT Lungs: no acute respiratory distress; symmetrical chest wall expansion; clear breath sounds across all lung walker w/o adventitious sounds; no wheezing ABD: Soft, NTP in all 4 quadrant; epigastric region NTP; no rashes or bruises appreciated in the abdomen or flanks bilaterally; BS present; no rebound/ guarding; no distention MSK: no tics or fasciculations; no edema noted in the LEs b/l, nonerythematous Neuro: A&Ox3; normal mood and affect; fluent speech; sensation intact and symmetric in the LEs b/l Results & Data Results & Data Vital Signs (Past 12 Hours) Vital Signs Temp Pulse Pulse Resp BP Pulse Ox O2 Del Method 05/22/25 07:04 36.5 C 79 18 149/74 H 96 Room Air 05/22/25 03:01 36.4 C L 80 16 155/85 H 96 Room Air 05/22/25 00:00 89 05/21/25 22:20 36.6 C 86 20 137/74 93 Room Air PG Care Time/CCT Total # of Minutes Spent Total Time Spent with Patient: Total time spent is greater than 50% in coordination of care (as documented) at patient's floor/unit and/or counseling patient: [place] [address] SUB INP/OBS CARE 07/14MIN Patient Type Established History Detailed Exam Detailed Medical Decision Making Low Complexity Diagnoses Acute blood loss anemia D62 Upper GI bleed K92.2 Duodenal ulcer K26.9 Iron deficiency E61.1 Chest pain R07.9 Chest pain type: unspecified Rhinovirus infection B34.8 COPD (chronic obstructive pulmonary disease) J44.9 COPD type: unspecified COPD Gastroesophageal reflux disease without esophagitis K21.9 Esophagitis presence: without esophagitis Stenosis of carotid artery, unspecified laterality I65.29 Laterality: unspecified laterality (5) Chest pain Chest pain type: unspecified Qualified Code(s): R07.9 - Chest pain, unspecified (7) COPD (chronic obstructive pulmonary disease) COPD type: unspecified COPD Qualified Code(s): J44.9 - Chronic obstructive pulmonary disease, unspecified (8) GERD (gastroesophageal reflux disease) Esophagitis presence: without esophagitis Qualified Code(s): K21.9 - Gastro- esophageal reflux disease without esophagitis (9) Carotid stenosis Laterality: unspecified laterality Qualified Code(s): I65.29 - Occlusion and stenosis of unspecified carotid artery
[2025-05-22 23:36] VITALS: O2SAT 96
[2025-05-23 03:16] VITALS: BP 129/70
[2025-05-23 07:04] VITALS: RESP 18; TEMP 97.3
[2025-05-23 07:51] VITALS: PULSE 68
--- NOTE | 2025-05-23 08:53 | Discharge Summary ---
Discharge Summary Date of Service May 23, 2025 Principal Dx & Hospital Course #1 = Principal Diagnosis (1) Acute blood loss anemia: (2) Upper GI bleed: (3) Duodenal ulcer: (4) Iron deficiency: (5) Chest pain: (6) Rhinovirus infection: (7) COPD (chronic obstructive pulmonary disease): (8) GERD (gastroesophageal reflux disease): (9) Carotid stenosis: Plan This patient is a 69-year-old male who presented on 05/17 for worsening SOB and chest pain in the days leading up to arrival. #Acute blood loss anemia | Duodenal ulcer | Upper GI Bleed Baseline hemoglobin 13.5 Received 1 unit PRBCs after Hb dropped to 7.4 in the hospital + notable melena GI consult appreciated EGD on 05/21 revealed a cratered duodenal ulcer (15 mm in largest dimension) Treated with bipolar cautery Current Hgb trend 9.0 -> 10.0 (improving) IV pantoprazole drip while inpatient Advanced from clear liquid diet to low fiber diet without set-backs Will plan to discharge on protonix 40mg p.o. BID Note: While patient denies NSAID use, he is currently on aspirin + Plavix for history of brain aneurysm with carotid stenosis s/p stent (TCAR in 2021), [place] at the age of [age] years old, and prior CVAs (in 2020). Patient is a current everyday tobacco cigarette smoker, but is currently trying to quit (currently on Chantix). Given vasculopathic risks + cigarette smoking, would not recommend keeping patient off of aspirin/Plavix indefinitely. Hold aspirin and Plavix for now, but recommended restarting at least monotherapy within the next 7 days #Iron deficiency Patient denies previous history of iron deficiency. He was offered iron supplement at this time defers. He is concerned about constipation. He has not seen hematology in the past. Encourage oral iron supplementation on discharge #Chest pain (resolved) Patient reports that his chest pain is resolved Echocardiogram with mild concentric left ventricular hypertrophy. No wall motion abnormalities or significant valvular heart disease EKG with normal sinus rhythm and no T wave abnormalities Patient is on chronic clopidogrel secondary to history of brain aneurysm with carotid stenosis No abnormalities on telemetry #Rhinovirus infection Supportive care Continue droplet precautions No hypoxia #COPD Gold class C/D. Previous PFTs with severe obstructive lung dysfunction with significant bronchodilator response, air trapping, moderate decrease in DLCO Continue Breo Ellipta. SpO2 98% on room air #GERD No acute complaints at this time. Continue pantoprazole as above #Carotid stenosis Presence of internal carotid stent placed in April 2022 Day of discharge 05/23: VSS Mr. Iqbal had a good breakfast this morning (banana, omelette, toast, and coffee). He did have a small bowel movement yesterday which she described as a solid/dark brown. He has been passing gas this morning. No blatant melena or bright red blood in his stool. He denies any abdominal pain, nausea, vomiting, or bloating after eating breakfast this morning, [facility] He does have a follow-up appointment already scheduled with his PCP on Monday 05/28 at 8:30 AM. Patient does express a strong desire to quit smoking, and hopes to go back on Chantix upon discharge. ROS: Patient denies stomach pain with eating, fevers, chest pain, SOB, N/V/D, melena, or BRB in stool. Disposition: [facility] home Notes For Next Care Provider Patient hospitalized for anemia in the setting of upper GI bleed. EGD on 05/21 revealed a 15 mm cratered duodenal ulcer which was cauterized. Hemoglobin uptrending to 10.0 at time of discharge. Will discharge patient on new Protonix Rx. Patient will need to follow-up with GI as an outpatient. Recommend blood draw prior to transitional care appointment to ensure stability of hemoglobin levels. Additionally, patient currently takes aspirin and Plavix for history of a carotid stent; these will remain on hold at time of discharge. Admission HPI Per Admitting Provider The patient is a 69-year-old male with past medical history including COPD, essential hypertriglyceridemia, GERD, TIA, carotid stenosis, cerebral aneurysm without rupture, amaurosis fugax, presence of internal carotid stent, and hypertension. He presents to the emergency department with progressively worsening shortness of breath, and intermittent chest pain over the past several days. He reports occasional radiation of discomfort into his left arm and left hand. His did test positive for COVID 1 week ago, and he was concerned that he may have contracted COVID. [employer] testing in the emergency department this evening is negative for COVID, but does show positivity for r hinovirus. He describes her chest pain as from right side across his sternum to the left side. May occur with or without activity. At the time of evaluation the emergency department he has no chest discomfort. Workup in ED included CT angiography that was negative for PE, but did show emphysema. From the ED patient received the following: Normal saline 500 mL bolus, DuoNeb treatment, nitroglycerin sublingual. [facility] Exam Per Admitting Provider The patient is awake, alert and oriented 3, well developed and well nourished, normocephalic and atraumatic, lying in bed and in no acute distress. HEENT--PERRL, EOMI, mucous membranes and oropharynx dry. Neck--supple. No JVD. No bruits. Thyroid normal, trachea midline, no adenopathy. Heart--normal S1 and S2. No murmurs, rubs or gallops. Lungs--clear bilaterally, no respiratory distress, no accessory muscle use. Abdomen--normal bowel sounds and soft. Nontender. Nondistended, no hernias or masses, no organomegaly. Extremities--no cyanosis or clubbing. No edema. There are good distal pulses b/l. Dermatologic--normal skin turgor, normal color, no abnormal lymph nodes, no rash. Neurologic--cranial nerves II through XII grossly intact. Rheumatologic--normal range of motion. Psychiatric--normal affect. Discharge Exam General: no acute distress; pleasant affect; sitting upright in bed watching TV and eating breakfast; non-toxic appearing; cooperative; SpO2 96% on RA HEENT: normocephalic, atraumatic; PERRLA; vision and hearing intact Neck: supple; trachea midline Skin: warm, dry without signs of tenting; no cyanosis; no rashes, bruising, lesions, or erythema noted CV: chest wall NTP; RRR; S1/S2 normal; no murmurs/rubs/gallops; pulses intact and symmetric at radial, DP, and PT Lungs: no acute respiratory distress; symmetrical chest wall expansion; clear breath sounds across all lung walker w/o adventitious sounds; no wheezing ABD: Soft, NTP in all 4 quadrant; epigastric region NTP; no rashes or bruises appreciated in the abdomen or flanks bilaterally; BS present; no rebound/guarding; no distention MSK: no tics or fasciculations; no edema noted in the LEs b/l, nonerythematous Neuro: A&Ox3; normal mood and affect; fluent speech; sensation intact and symmetric in the LEs b/l Discharge Plan Discharge Items Patient Disposition: Home - Self-Care Reason For Visit: SOB, ANEMIA, CHEST TIGHTNESS Discharge Diagnosis: GI bleed Condition on Discharge: Fair Activity: Resume your previous activity Non-emergency contact: Primary Care Provider and [employer] Call non-emergency contact if: you have any medication questions, your symptoms worsen, your pain is not controlled and you have a fever Follow-up/Referrals: Pawel Greene DO [Primary Care Provider] - 05/28/25 Diet: Low Fiber Addtl Attending Provider Instructions: You were hospitalized at [facility] from 05/18 to 05/23 due to progressive shortness of breath and worsening chest pain in the days leading up to arrival. On arrival, her hemoglobin level (red blood cell count) was found to be low and dropped down to 7.4 (normal reference range 14.0-18.0). You received a blood transfusion - 1 unit of packed red blood cells, and this helped to stabilize your levels. You also reported having dark/tarry stool, and it was suspected that your low hemoglobin levels were due to a gradual upper stomach bleed. You underwent a procedure called an EGD with her gastroenterology team on 05/21, which revealed a 15 mm cratered/bleeding duodenal ulcer. This ulcer was cauterized during the procedure. Following your EGD, your hemoglobin levels remained stable. Your stomach lining was treated with an IV medication called pantoprazole (or "Protonix"). It is recommended that you continue taking this medication upon discharge. New prescriptions on discharge: Pantoprazole ("Protonix") 40 mg tablets twice daily While you are healing from your stomach bleed, it is recommended that you HOLD both aspirin and Plavix. We will tentatively plan for you to restart PLAVIX ONLY as a monotherapy on 05/29. Note this is only to be started after follow-up with your PCP. If you begin having black/tarry stool or bright red blood in your stool, do not restart this medication. It is strongly encouraged that you quit smoking, as this is a primary risk factor that may be contributing to gastric/duodenal ulcers. You reported that you have an upcoming appointment with your PCP on 05/28. Prior to this appointment, we recommend that you have blood work drawn to ensure stability of your hemoglobin levels. We also plan to schedule you for a follow- up appointment with our gastroenterology team as an outpatient. If you develop any new or worsening symptoms, such as fever, chills, intractable stomach pain, nausea, vomiting, dark/tarry stool, or bright red blood in your stool, please return to the emergency department immediately. It was a pleasure taking care of you. Please reach out with any questions or concerns. Sincerely, The Hospital medicine team at [facility] Pending Studies at Discharge: Yes Studies:: Stomach tissue biopsies; H. Pylori Stand-Alone Forms: My [facility] [employer], Smoking Cessation Medications and DC Order Prescriptions: New pantoprazole 40 mg tablet,delayed release (DR/EC) 40 mg PO BID Qty: 60 0RF Rx Instructions: Take 40 mg twice daily Continued fluticasone furoate-vilanterol [Breo Ellipta] 100-25 mcg/dose blister with device 1 inh inhalation DAILY Qty: 60 3RF Rx Instructions: 1 inh inhalation qam. Currently using generic advair but per the , it doesn't help as well as breo and pt will probably restart breo toomorrow albuterol sulfate [Ventolin HFA] 90 mcg/actuation HFA aerosol inhaler 2 puff INH Q6H PRN (Reason: Shortness Of Breath) Qty: 8.5 3RF ascorbic acid (vitamin C) 250 mg tablet 250 mg PO UD Rx Instructions: per spouse, pt will take a couple times a week cholecalciferol (vitamin D3) 25 mcg (1,000 unit) capsule 25 mcg PO UD Rx Instructions: per spouse, pt will take a couple times a week mometasone 0.1 % ointment 1 applic topical BID PRN (Reason: skin irritation) Qty: 45 2RF losartan 25 mg tablet 50 mg PO DAILY Rx Instructions: Filled by cardiology sildenafil [Viagra] 50 mg Tablet 25 mg PO DAILY PRN (Reason: Erectile Dysfunction) Rx Instructions: administer 30 minutes to 4 hours before activity atorvastatin [Lipitor] 40 mg tablet 40 mg PO QAM multivitamin Tablet 1 tab PO DAILY loratadine 10 mg Tablet 10 mg PO DAILY ezetimibe 10 mg tablet 10 mg PO DAILY Held aspirin 81 mg tablet,delayed release (DR/EC) 81 mg PO QAM Hold Instructions: Resume on 06/27/25. Hold until seen by PCP for follow-up clopidogrel [Plavix] 75 mg tablet 75 mg PO QAM Hold Instructions: Resume on 05/29/25. Hold until 05/29/2025 Discharge Orders: Discharge Order (Routine); Ordered 05/23/25 Ordered By: Edison Jenkins/Other Patient Handouts: Low-Fiber Diet, ED Upper GI Bleeding (Stable) Admission Data Admit Date/Time: 05/19/25 18:22 Attending Provider: Chema Gomez Admit Provider: Carlos Blanchard Primary Care Provider: Pawel Greene Other Providers: Carlos Blanchard; Bridger Burgess Jr Other Interventions: Discharge Summary Assessment (RN) Last Done: 05/23/25 09:54 Hospital Stay Data Consultations 05/18/25 19:46 ED Decision to Admit Stat 05/19/25 13:56 Consult Gastroenterology Routine Procedures Performed Operation Date: 05/21/25 16:30 Actual Procedures p EGD Hemostasis - Kali Womack MD Diagnostic Imagining Performed 05/18/25 15:18 CT angio chest PE protocol Stat Pending Results Patient Have Any Pending Studies at Discharge: Yes Discharge Instructions Given to Patient (Per Discharging Provider) You were hospitalized at [facility] from 05/18 to 05/23 due to progressive shortness of breath and worsening chest pain in the days leading up to arrival. On arrival, her hemoglobin level (red blood cell count) was found to be low and dropped down to 7.4 (normal reference range 14.0-18.0). You received a blood transfusion - 1 unit of packed red blood cells, and this helped to stabilize your levels. You also reported having dark/tarry stool, and it was suspected that your low hemoglobin levels were due to a gradual upper stomach bleed. You underwent a procedure called an EGD with her gastroenterology team on 05/21, which revealed a 15 mm cratered/bleeding duodenal ulcer. This ulcer was cauterized during the procedure. Following your EGD, your hemoglobin levels remained stable. Your stomach lining was treated with an IV medication called pantoprazole (or "Protonix"). It is recommended that you continue taking this medication upon discharge. New prescriptions on discharge: Pantoprazole ("Protonix") 40 mg tablets twice daily While you are healing from your stomach bleed, it is recommended that you HOLD both aspirin and Plavix. We will tentatively plan for you to restart PLAVIX ONLY as a monotherapy on 05/29. Note this is only to be started after follow-up with your PCP. If you begin having black/tarry stool or bright red blood in your stool, do not restart this medication. It is strongly encouraged that you quit smoking, as this is a primary risk factor that may be contributing to gastric/duodenal ulcers. You reported that you have an upcoming appointment with your PCP on 05/28. Prior to this appointment, we recommend that you have blood work drawn to ensure stability of your hemoglobin levels. We also plan to schedule you for a follow- up appointment with our gastroenterology team as an outpatient. If you develop any new or worsening symptoms, such as fever, chills, intractable stomach pain, nausea, vomiting, dark/tarry stool, or bright red blood in your stool, please return to the emergency department immediately. It was a pleasure taking care of you. Please reach out with any questions or concerns. Sincerely, The Hospital medicine team at [facility] Total Time Total Time Spent Total Time Spent (In Minutes): 30 Coding [place] [address] INP/OBS DISCH >30 MIN Patient Type Established History Comprehensive Exam Comprehensive Medical Decision Making Moderate Complexity Diagnoses Acute blood loss anemia D62 Upper GI bleed K92.2 Duodenal ulcer K26.9 Iron deficiency E61.1 Chest pain R07.9 Chest pain type: unspecified Rhinovirus infection B34.8 COPD (chronic obstructive pulmonary disease) J44.9 COPD type: unspecified COPD Gastroesophageal reflux disease without esophagitis K21.9 Esophagitis presence: without esophagitis Stenosis of carotid artery, unspecified laterality I65.29 Laterality: unspecified laterality
== END 2025-05-23 10:27 | disposition home or self-care (01) | DRG 378 ==
LOC: ED 13:42 → 2S 13:42 → SUATTDRO 19:53 → 2S 20:37 → SUATTDRO 05-19 18:22
DX: Z86.73 Personal history of transient ischemic attack (TIA), and cerebral infarction without residual deficits; B34.8 Other viral infections of unspecified site; Z79.02 Long term (current) use of antithrombotics/antiplatelets; K21.9 Gastro-esophageal reflux disease without esophagitis; K26.4 Chronic or unspecified duodenal ulcer with hemorrhage; J43.9 Emphysema, unspecified; Z86.79 Personal history of other diseases of the circulatory system; F17.210 Nicotine dependence, cigarettes, uncomplicated; Z79.899 Other long term (current) drug therapy; J44.9 Chronic obstructive pulmonary disease, unspecified; D50.9 Iron deficiency anemia, unspecified; Z88.0 Allergy status to penicillin; I65.29 Occlusion and stenosis of unspecified carotid artery; I10 Essential (primary) hypertension; Z79.82 Long term (current) use of aspirin; E78.5 Hyperlipidemia, unspecified; I25.2 Old myocardial infarction; D62 Acute posthemorrhagic anemia; Z86.0100 Personal history of colon polyps, unspecified; E78.1 Pure hyperglyceridemia; R73.9 Hyperglycemia, unspecified; I51.7 Cardiomegaly; Z95.828 Presence of other vascular implants and grafts